=== PATIENT | female | born 1940 | race Caucasian/White ===

== ENCOUNTER → 2017-08-01 14:48 | Outpatient (CLI) | payer MEDICARE, SELFPAY ==
--- NOTE | 2017-08-01 14:51 | CT_ITS ---
STUDY: CT CHEST WITH CONTRAST REASON FOR EXAM: Female, 77 years old. Lung nodule. COPD. RADIATION DOSAGE (If Supplied By Facility): CTDIvol = ( 8.21 ) mGy, DLP = ( 748.46 ) mGycm TECHNIQUE: Transaxial imaging was performed following intravenous administration of 100 ml of Isovue 300 contrast material. Multiplanar coronal and sagittal images were reformatted. Individualized dose optimization techniques were used for this CT. COMPARISON: October 04, 2016 FINDINGS: There are emphysematous changes present. The lungs are hyperinflated There is biapical scarring present. There is stable scarring and/or atelectasis within the lower lobes. There are calcifications of the coronary arteries. Normal mediastinum. No pathologically enlarged lymph nodes. There are peripheral calcifications of the aortic arch and descending thoracic aorta. There are trace secretions within the trachea. There are multi-level degenerative changes of the thoracic spine. There is a small hiatal hernia. CT/Chest WITH Contrast IMPRESSION: Emphysema. Atherosclerosis. Bilateral scarring and/or atelectasis. Electronically Signed: Sayra Palacio MD at 17:23 EDT Tel , Service support ,
--- NOTE | 2017-08-01 14:51 | CT_ITS ---
STUDY: CT ABDOMEN AND PELVIS WITH CONTRAST REASON FOR EXAM: Female, 77 years old. Hematuria RADIATION DOSAGE (If Supplied By Facility): CTDIvol = ( 8.21 ) mGy, DLP = ( 748.46 ) mGycm TECHNIQUE: Transaxial images were obtained from the dome of the diaphragm to the symphysis pubis without oral contrast. 100 ml of Isovue 300 contrast was administered. Sagittal and coronal images were reconstructed. Individualized dose optimization techniques were used for this CT. COMPARISON: None. FINDINGS: There are emphysematous changes at the lung bases. There is a linear calcification within the left lower lobe which may be secondary to scarring and/or an prior infectious process. The visualized portions of the heart are within normal limits. Normal liver. Normal gallbladder and extrahepatic biliary system. Normal spleen. Normal pancreas. Normal bilateral adrenal glands. Normal right kidney. Normal left kidney. There is a small hiatal hernia. The proximal duodenum is prominent. There is no evidence of an obstruction. There are diverticula throughout the sigmoid colon. There is non-visualization of the appendix. There is diffuse atherosclerotic calcification of the abdominal aorta, without a demonstrated aneurysm. Normal inferior vena cava. Normal retroperitoneum. Normal urinary bladder. Normal abdominal wall. There are diffuse degenerative changes of the visualized lumbar spine. There is a levoscoliosis of the lumbar spine. CT/Abdomen/Pelvis WITH Contrast IMPRESSION: No specific CT findings to explain hematuria. Small hiatal hernia. Atherosclerosis. Colonic diverticulosis without evidence of diverticulitis. Prominent proximal duodenum, this may be chronic. Degenerative changes. Emphysema. Electronically Signed: Sayra Palacio MD at 16:41 EDT Tel , Service support ,
[2017-08-01 15:51] LABS: CREATININE FINGERSTICK 0.9 mg/dL (0.55-1.02); EGFR FINGERSTICK > 60.0000 mL/min (>60)
== END ==
PROVIDERS: Family Provider Internal Medicine; PCP Internal Medicine; Visit Provider Internal Medicine
DX: R31.0 Gross hematuria (principal); R91.1 Solitary pulmonary nodule
CPT/HCPCS: 71260; 74177; Q9967

== ENCOUNTER → 2018-07-29 09:01 | Outpatient (CLI) | payer MEDICARE, MEDICAID, SELFPAY | PROVIDERS: Family Provider Nurse Practitioner; PCP Nurse Practitioner; Referring Provider Nurse Practitioner; Visit Provider Nurse Practitioner | DX: R00.1 Bradycardia, unspecified (principal) | CPT/HCPCS: 93225; 93226 ==

== ENCOUNTER → 2018-08-08 10:12 | Outpatient (CLI) | payer MEDICARE, MEDICAID, SELFPAY ==
[2018-08-01 11:47] VITALS: BMI 17.5
--- NOTE | 2018-08-08 10:19 | MRI_ITS ---
STUDY: MRA OF THE HEAD WITHOUT CONTRAST REASON FOR EXAM: Female, 78 years old. Vertigo TECHNIQUE: 3-D vbep-db-pfepec (TOF) imaging was performed with MIPs. The study was performed unenhanced. COMPARISON: None. FINDINGS: Normal bilateral petrous carotid arteries. Normal right cavernous carotid artery with a normal supraclinoid bifurcation. Normal left cavernous carotid artery with a normal supraclinoid bifurcation. Normal right A1 segments of the anterior cerebral artery. Normal left A1 segments of the anterior cerebral artery. Normal intact anterior communicating artery (ACOM). Normal bilateral A2 segments of the anterior cerebral arteries. Normal right M1 and M2 segments of the middle cerebral arteries, with a normal M1 bifurcation. Normal left M1 and M2 segments of the middle cerebral arteries, with a normal M1 bifurcation. Normal right posterior communicating artery (PCOM). Normal left posterior communicating artery (PCOM). Normal bilateral vertebral arteries. Normal basilar artery with a normal basilar bifurcation. The visualized bilateral superior cerebellar (SCA) arteries are normal. Normal right P1 segment. The left P1 segment is hypoplastic but patent. Normal bilateral P2 and visualized P3 segments of the posterior cerebral arteries. There is no demonstrated aneurysm of the [place] of [place]. There is no major vessel occlusion or hemodynamically significant stenosis. There is no demonstrated abnormality of the visualized brain. MRI/MRA Head ONLY without Contrast IMPRESSION: Normal MRA of the head Electronically Signed: Man Jefferson, at 15:16 EDT Tel , Service support ,
--- NOTE | 2018-08-08 10:19 | MRI_ITS ---
STUDY: MRI BRAIN WITH AND WITHOUT CONTRAST REASON FOR EXAM: Female, 78 years old. Vertigo TECHNIQUE: Standardized multiplanar fat and water weighted pulse sequences were obtained. 9 IV Dotarem was administered for the contrast portion of the examination. COMPARISON: None. FINDINGS: Normal size of the ventricles and extra-axial spaces for the patient's age. Normal white matter tracts of the supratentorial brain. Normal bilateral basal ganglia. Normal thalami. There is no extra-axial fluid accumulation. Normal flow voids within the major intracranial circulation suggesting patency by spin echo criteria. Normal venous enhancement. There is no enhancing intra-axial or extra-axial abnormality. Normal sella turcica, pituitary gland, infundibular stalk, optic chiasm and hypothalamus. Normal tectal plate and pineal gland. Normal midbrain, ariana and medulla. Normal cerebellum. Normal basal cisterns. Normal bilateral temporal bones. Normal bilateral internal auditory canals. No demonstrated orbital abnormality, within the constraints of a routine brain study. There is acute on chronic right maxillary sinusitis with near complete opacification of the right maxillary sinus. Normal calvarium and skull base. Normal visualized soft tissue structures. Normal visualized upper cervical spine. MRI/Brain W/WO Contrast IMPRESSION: Normal unenhanced and enhanced MRI of the brain. Electronically Signed: Man Jefferson, at 12:37 EDT Tel , Service support ,
== END ==
PROVIDERS: Family Provider Nurse Practitioner; PCP Nurse Practitioner; Referring Provider Nurse Practitioner; Visit Provider Nurse Practitioner
DX: R42 Dizziness and giddiness (principal)
CPT/HCPCS: 70544; 70553; A9575

== ENCOUNTER → 2018-09-17 | Outpatient (CLI) | payer MEDICARE, MEDICAID, SELFPAY ==
[2018-08-01 11:47] VITALS: BMI 17.5
--- NOTE | 2018-09-17 06:53 | ECHOD_ITS ---
Reason For Study: Arrhythmia Procedure This was a 2D Doppler, Color Flow transthoracic echocardiogram. The exam was of adequate technical quality. Exam performed in department. Left Ventricle Normal LV size. Left ventricular systolic function is normal. The estimated ejection fraction is 60 %. No evidence for diastolic dysfunction. No regional wall motion abnormalities noted. Right Ventricle Normal RV size. Normal systolic function. Atria Normal left atrium. Normal right atrium. No doppler evidence for ASD. Bubble contrast study negative for right to left interatrial shunt. Mitral Valve There is no mitral annular calcification. Anterior leaflet diffuse mitral valve thickening. Mitral valve doming/Hockey Sticking. Mild (1+) eccentric mitral valve insufficiency. Tricuspid Valve Normal tricuspid valve. Mild to moderate (1-2+) tricuspid valve insufficiency. Right ventricular systolic pressure estimated to be 31 mmHg. Aortic Valve Trisinus/trileaflet aortic valve. Mild diffuse aortic valve thickening. Mild focal aortic valve calcification. Aortic sclerosis, no stenosis. Trivial aortic valve insufficiency. Pulmonic Valve The pulmonic valve is not well visualized. Mild (1+) pulmonic valve insufficiency. Great Vessels Normal sized aortic root. Pericardium/Pleural No pericardial effusion. Medication Performed a rapid injection of agitated mix of 9 cc saline and 1cc air to assess for atrial septal defect. MMode/2D Measurements & Calculations LVIDd: 4.1 cm IVSd: 0.75 cm Ao root diam: 2.8 cm LVIDs: 2.7 cm LVPWd: 0.83 cm RVDd: 2.8 cm FS: 35.2 % LAV(MOD-bp): 30.7 ml LVAd ap4: 19.6 cm2 SV(MOD-sp4): 29.5 ml LAV(MOD-bp) Indexed: 21.2 ml/m2 EDV(MOD-sp4): 49.4 ml LAV(MOD-sp2): 34.5 ml EDV(sp4-el): 50.2 ml LAV(MOD-sp4): 23.9 ml LVAs ap4: 11.4 cm2 ESV(MOD-sp4): 19.9 ml ESV(sp4-el): 18.4 ml EF(MOD-sp4): 59.7 % EF(sp4-el): 63.4 % SV(sp4-el): 31.8 ml LA A4 area: 11.1 cm2 LA dimension(2D): 2.3 cm RA A4 area: 10.8 cm2 Doppler Measurements & Calculations MV E max tavo: 52.5 cm/sec Lat Peak E' Tavo: 5.7 cm/sec Med Peak E' Tavo: 5.4 cm/sec MV A max tavo: 68.4 cm/sec E/E' lat: 9.2 E/E' med: 9.8 MV E/A: 0.77 Ao V2 max: 103.4 cm/sec LV V1 max: 80.0 cm/sec PA V2 max: 80.9 cm/sec Ao max P.3 mmHg LV V1 max P.6 mmHg TR max tavo: 262.8 cm/sec TR max P.8 mmHg Interpretation Summary Left ventricular systolic function is normal. The estimated ejection fraction is 60 %. Anterior leaflet diffuse mitral valve thickening. Mitral valve doming/Hockey Sticking Mild (1+) eccentric mitral valve insufficiency. Mild to moderate (1-2+) tricuspid valve insufficiency. Aortic sclerosis, no stenosis. Trivial aortic valve insufficiency. Mild (1+) pulmonic valve insufficiency. Right ventricular systolic pressure estimated to be 31 mmHg. No evidence for diastolic dysfunction. Comment: Color-flow Doppler images obtained cannot exclude a PDA (patent ductus arteriosus). Ordering Physician: Gregory Stanton Referring Physician: Sahra Delacruz Performed By: Lisa Barrientos CELINA
--- NOTE | 2018-09-17 11:46 | STRESSREP ---
Stress Test Report Date: 09-17-18 Procedure: Exercise tolerance test/imaging study Indications: Abnormal ECG; shortness of breath/dyspnea; hyperlipidemia Consent: Per the patient Procedure: The patient exercised on a Wang protocol for 6 minutes and 30 seconds completing Stage II and 30 seconds of Stage III achieving a peak heart rate of 123 bpm (87 % predicted maximal heart rate) with a peak blood pressure 198/74 mmHg and a peak MET capacity of 7 METs. The baseline ECG demonstrated normal sinus rhythm; right bundle branch block pattern. The peak exercise ECG demonstrated somatic/motion artifact with continued right bundle branch block pattern. There were occasional PACs pretest, during exercise, and recovery and occasional PVCs during exercise and recovery. The functional capacity was considered average. There was no complaint of chest discomfort during exercise or recovery. The examination was discontinued secondary to dyspnea. Impression: 1. Technically adequate (percent predicted maximal heart rate greater than 85%) exercise tolerance test 2. Peak exercise ECG with somatic/motion artifact with continued right bundle branch block pattern 3. There were occasional PACs pretest, during exercise, and recovery and occasional PVCs during exercise and recovery 4. Nuclear images pending Myocardial perfusion imaging study: Technique: The patient was injected with 11.1 mCi of technetium 99m Cardiolite and subsequently rest SPECT Cardiolite nuclear imaging was obtained in the horizontal long, vertical long, and short axis views. The patient exercised on a Wang protocol for 6 minutes and 30 seconds completing Stage II and 30 seconds of Stage III achieving a peak heart rate of 123 bpm (87 % predicted maximal heart rate) with a peak blood pressure 198/74 mmHg and a peak MET capacity of 7 METs. The patient was injected with 30.9 mCi of technetium 99m Cardiolite and subsequently stress SPECT Cardiolite nuclear imaging was obtained in the horizontal long, vertical long, and short axis views. A gated Cardiolite study at peak stress was not obtained. Interpretation: Rest and stress SPECT Cardiolite nuclear imaging status post realignment, normalization, and attenuation correction, demonstrates the appearance of relative uniform tracer uptake and myocardial perfusion appearing within normal limits. The gated Cardiolite study at peak stress was not obtained. Impression: 1. Rest and stress SPECT Cardiolite nuclear imaging demonstrate relative uniform tracer uptake and myocardial perfusion appearing within normal limits. 2. A gated Cardiolite study at peak stress was not obtained. This note was generated with [employer] software. It may contain incorrect words, spelling, and punctuation that were not noted in checking the note before signing.
== END | disposition home or self-care (01) ==
LOC: CVS 06:52
PROVIDERS: Family Provider Nurse Practitioner; PCP Nurse Practitioner; Referring Provider Internal Medicine Cardiovascular Disease; Visit Provider Internal Medicine Cardiovascular Disease
DX: I49.3 Ventricular premature depolarization (principal); I49.1 Atrial premature depolarization; R06.02 Shortness of breath
CPT/HCPCS: 78452; 93017; 93306; A9500; A4216

== ENCOUNTER → 2019-01-02 10:51 | Outpatient (CLI) | payer MEDICARE, MEDICAID, SELFPAY ==
[2018-12-30 10:39] VITALS: BMI 17.2
[2019-01-02 11:00] VITALS: PULSE 49; PULSE 52; PULSE 54; PULSE 58; PULSE 60; PULSE 63; PULSE 71; O2SAT 93; O2SAT 95; O2SAT 96
--- NOTE | 2019-01-02 14:17 | PCM.PSN.6M ---
PSN 6 Minute Walk Test - 6 Minute Walk Test 6 Minute Walk Test: 6 Minute Walk Test PSN:6-Minute Walk Test Start: 01/02/19 11:10 Freq: Status: Active Protocol: RESP.6MINW Document 01/02/19 11:00 HG (Rec: 01/02/19 11:12 HG [id number]) 6 Minute Walk Test Date Performed 01/02/19 Time Performed 11:00 Height 5 ft 3 in Weight: 43.998 kg Weight in Pounds 97.[address]: Genaro Ortega Assistive device used: None 1st minute Oxygen Delivery Method Room Air Pulse Ox (%) 93 Pulse Rate (60-100 beats/min) 49 L Dyspnea Sabino Scale (0-10) 2 Exertion Sabino Scale (6-20) 8 2nd minute Oxygen Delivery Method Room Air Pulse Ox (%) 96 Pulse Rate (60-100 beats/min) 52 L 3rd minute Oxygen Delivery Method Room Air Pulse Ox (%) 93 Pulse Rate (60-100 beats/min) 54 L 4th minute Oxygen Delivery Method Room Air Pulse Ox (%) 96 Pulse Rate (60-100 beats/min) 60 5th minute Oxygen Delivery Method Room Air Pulse Ox (%) 96 Pulse Rate (60-100 beats/min) 63 6th minute Oxygen Delivery Method Room Air Pulse Ox (%) 96 Pulse Rate (60-100 beats/min) 71 Post-test Oxygen Delivery Method Room Air Pulse Ox (%) 95 Pulse Rate (60-100 beats/min) 58 L Dyspnea Sabino Scale (0-10) 3 Exertion Sabino Scale (6-20) 11 Full Laps Walked 18 Partial Lap, Number of Tiles Walked 0 Total Distance Walked (ft) 1062 - Interpretation Interpretation: Patient was able to ambulate 1062 feet over the course of 6 minutes on room air with no assistive devices or breaks. No significant desaturation or tachycardia was noted. - Recommendations Recommendations: These findings are consistent with a normal walking oximetry.
== END ==
PROVIDERS: Family Provider Nurse Practitioner; PCP Nurse Practitioner; Referring Provider Internal Medicine Critical Care Medicine; Visit Provider Internal Medicine Critical Care Medicine
DX: J44.9 Chronic obstructive pulmonary disease, unspecified (principal); F17.210 Nicotine dependence, cigarettes, uncomplicated
CPT/HCPCS: 94618

== ENCOUNTER → 2019-01-09 12:47 | Outpatient (CLI) | payer MEDICARE, MEDICAID, SELFPAY ==
[2018-12-30 10:39] VITALS: BMI 17.2
--- NOTE | 2019-01-10 09:48 | PFT ---
INTRODUCTION: The patient is a 78-year-old female that presents for pulmonary function studies secondary to a diagnosis of COPD. Respiratory therapy reports good patient effort. Bronchodilators were used during testing. INTERPRETATION: Forced expiration spirometry demonstrates the presence of a moderate large airways obstructive ventilatory defect. There was no significant response to aerosolized bronchodilators. Spirograms are of fair quality and do not plateau indicating slow emptying of the lungs. Body plethysmography was performed and reveals an elevated RV to 141% of predicted, indicative of underlying air trapping. Diffusing capacity by single breath CO is mildly reduced at 65% of predicted. IMPRESSION: Irreversible moderate large airways obstructive ventilatory defect with associated air trapping and mild reduction in diffusing capacity.
== END ==
PROVIDERS: Family Provider Nurse Practitioner; PCP Nurse Practitioner; Referring Provider Internal Medicine Critical Care Medicine; Visit Provider Internal Medicine Critical Care Medicine
DX: J44.9 Chronic obstructive pulmonary disease, unspecified (principal); F17.210 Nicotine dependence, cigarettes, uncomplicated
CPT/HCPCS: 94060; 94726; 94729

== ENCOUNTER → 2020-08-17 12:53 | Outpatient (CLI) | payer MEDICARE, MEDICAID, SELFPAY ==
[2020-08-03 07:24] VITALS: BMI 17.7
[2020-08-17 13:00] VITALS: PULSE 101; PULSE 104; PULSE 83; PULSE 92; PULSE 98; PULSE 99; O2SAT 93; O2SAT 94; O2SAT 95
--- NOTE | 2020-08-18 10:15 | PCM.PSN.6M ---
PSN 6 Minute Walk Test 6 Minute Walk Test 6 Minute Walk Test: 6 Minute Walk Test PSN:6-Minute Walk Test Start: 08/17/20 13:10 Freq: Status: Active Protocol: RESP.6MINW Document 08/17/20 13:00 (Rec: 08/17/20 13:14 [id number]) 6 Minute Walk Test Date Performed 08/17/20 Time Performed 13:00 Height 5 ft 3 in Weight: 100 lb Weight in Pounds 100.[address]: Genaro Ortega FIO2 (% Oxygen) 21 Assistive device used: None Pre-test Oxygen Delivery Method Room Air Pulse Ox (%) 95 Pulse Rate (60-100 beats/min) 83 Dyspnea Sabino Scale (0-10) 0 Exertion Sabino Scale (6-20) 6 1st minute Oxygen Delivery Method Room Air Pulse Ox (%) 94 Pulse Rate (60-100 beats/min) 98 2nd minute Oxygen Delivery Method Room Air Pulse Ox (%) 95 Pulse Rate (60-100 beats/min) 101 H 3rd minute Oxygen Delivery Method Room Air Pulse Ox (%) 94 Pulse Rate (60-100 beats/min) 99 4th minute Oxygen Delivery Method Room Air Pulse Ox (%) 93 Pulse Rate (60-100 beats/min) 101 H 5th minute Oxygen Delivery Method Room Air Pulse Ox (%) 93 Pulse Rate (60-100 beats/min) 104 H 6th minute Oxygen Delivery Method Room Air Pulse Ox (%) 94 Pulse Rate (60-100 beats/min) 104 H Post-test Oxygen Delivery Method Room Air Pulse Ox (%) 95 Pulse Rate (60-100 beats/min) 92 Dyspnea Sabino Scale (0-10) 3 Exertion Sabino Scale (6-20) 11 Full Laps Walked 19 Partial Lap, Number of Tiles Walked 0 Total Distance Walked (ft) 1121 Interpretation Interpretation: The patient ambulated 1121 feet over the course of 6 minutes beginning on room air without assistive devices or breaks. Pretesting oxygen saturation was noted to be 95% on room air. With ambulation, the elvin oxygen saturation was 93%. There was no significant exertional oxygen desaturation. Recommendations Recommendations: There is no indication for the use of supplemental oxygen at this time.
== END ==
PROVIDERS: PCP Nurse Practitioner; Referring Provider Internal Medicine Critical Care Medicine; Visit Provider Internal Medicine Critical Care Medicine
DX: J44.9 Chronic obstructive pulmonary disease, unspecified (principal); F17.210 Nicotine dependence, cigarettes, uncomplicated
CPT/HCPCS: 94618

== ENCOUNTER 2022-08-29 10:14 | Inpatient (IN) | payer MEDICARE, MEDICAID, SELFPAY ==
[2022-08-29] VITALS (23 sets, daily range): BP systolic 80–146; BP diastolic 47–124; PULSE 80–128; RESP 12–32; TEMP 35.7–36.8; O2SAT 90–100; BMI 17.4; BMI 17.9
--- NOTE | 2022-08-29 10:28 | RAD_ITS ---
STUDY: X-RAY CHEST REASON FOR EXAM: Female, 82 years old. Dyspnea TECHNIQUE: Single AP portable view of the chest. COMPARISON: None. FINDINGS: EKG electrodes are seen. There is hyperinflation of the lungs consistent with chronic obstructive lung disease (COPD). Mild increased markings at the lung apices suggestive of scarring. Blunting of both costophrenic angles. Normal size heart. Normal mediastinum and cristina. Normal visualized pulmonary arteries. There is atherosclerotic calcification of the aortic arch with tortuosity. There are diffuse degenerative changes of the visualized thoracic spine. Normal visualized ribs, clavicles, and shoulders. There is no demonstrated abnormality of the visualized soft tissue structures of the upper abdomen. RAD/Chest 1 View (Portable) IMPRESSION: Hyperinflation. COPD. Findings suggestive of scarring at the lung apices. Electronically Signed: Yoni Gu MD at 12:16 EDT ,
--- NOTE | 2022-08-29 10:29 | ED.VIS.DYS ---
HPI History of Present Illness Chief Complaint: Shortness of Breath Detail of Chief Complaint: Shortness of breath Informant: patient and family Narrative Narrative: Patient presents the emergency department complaint of shortness of breath for about 4 days. Patient felt significantly more short of breath today. She has been coughing. Patient bringing up some yellow phlegm. She does have history of COPD but not on home oxygen. Patient continues to smoke. She denies any chest pain. She denies recent travel or surgery. Patient denies any fevers. Patient tells me that she normally has low blood pressure but cannot tell me how low her pressure normally runs. She denies feeling lightheaded or dizzy. She had no vomiting or diarrhea. [facility] Medical History (Updated 08/29/22 @ 12:[address] Suki Boston DO) Bradycardia COPD (chronic obstructive pulmonary disease) Depression Essential hypertension Lung nodule Pure hypercholesterolemia Tobacco abuse Trigeminal neuralgia Vertigo Home Medications coenzyme Q10 200 mg capsule 200 mg PO DAILY 07/31/18 [History Last Taken Unknown] aspirin 325 mg tablet 325 mg PO DAILY 08/01/18 [History Last Taken Unknown] cholecalciferol (vitamin D3) 50 mcg (2,000 unit) capsule 2,000 unit PO DAILY 08/01/18 [History Last Taken Unknown] tiotropium 2.5 mcg-olodaterol 2.5 mcg/actuation mist for inhalation (Stiolto Respimat) 2 inh inhalation DAILY #4 grams 03/16/22 [Rx Last Taken Unknown] Allergy/AdvReac Type Severity Reaction Status Date / Time No Known Allergies Allergy Unverified 08/29/22 10:20 Family History Mother Heart disease Father Heart disease Diabetes Grandfather CVA (cerebral vascular accident) Brother Heart disease Surgical History History of hysterectomy History of lung biopsy Social History Smoking Status: Current some day smoker tobacco type: cigarettes alcohol intake: never substance use type: does not use caffeine: Yes Type: carbonated beverages Number of servings: 2 ROS ROS ED Review of Systems ROS Unobtainable: other Constitutional Constitutional ED: Reports lethargy; Denies chills, fever(s), sweats or weight loss Eyes Eyes: Denies blurry vision, change in vision or diplopia ENT ENT ED: Denies rhinorrhea or sore throat Cardiovascular Cardiovascular: Denies chest pain, orthopnea or racing heartbeat Respiratory/Chest Respiratory/Chest: Reports cough, dyspnea, dyspnea on exertion and sputum; Denies orthopnea Gastrointestinal Gastrointestinal: Denies abdominal pain, diarrhea, nausea or vomiting Genitourinary Genitourinary ED: Denies dysuria, hematuria or urinary frequency Musculoskeletal Musculoskeletal: Denies arthralgias, back pain, myalgias or neck pain Integumentary Denies abscess, Abrasions or rash Neurologic Neurologic: Denies headache(s) or weakness Psychiatric Psychiatric: Denies anxiety, depression or suicidal thoughts Endocrine Endocrinology: Denies polydipsia, polyphagia or polyuria Hematologic/Lymphatic Hematologic/Lymphatic: Denies easy bleeding, easy bruising or lymphadenopathy Allergic/Immunologic Allergic/Immunologic ED: Denies mouth swelling, tongue swelling or urticaria EXAM Physical Exam Const Vital Signs: 08/29/22 10:18 08/29/22 10:21 08/29/22 11:19 Temperature 98.1 F Temperature Source Temporal Pulse Rate 90 Respiratory Rate 20 H Blood Pressure 88/74 L Blood Pressure Mean 78 Pulse Ox 90 97 93 Oxygen Delivery Method Room Air Nasal Cannula Bi-pap Oxygen Flow Rate (L/min) 2 Fraction of Inspired Oxygen (FIO2) 100 08/29/22 11:15 Temperature Temperature Source Pulse Rate 104 H Respiratory Rate 28 H Blood Pressure 146/124 H Blood Pressure Mean 131 Pulse Ox 99 Oxygen Delivery Method Bi-pap Oxygen Flow Rate (L/min) Fraction of Inspired Oxygen (FIO2) Positive well nourished and well developed General Appearance ED: well developed and NAD HEENT Reports TM's clear and moist mucous membranes normocephalic and atraumatic; Negative for trauma or tenderness Tympanic Membrane ED: Yes TM's clear Eyes PERRL and EOMs intact bilaterally General Eye ED: Negative for pale conjunctiva or scleral icterus Neck no lymphadenopathy, supple and no JVD General: Negative for tenderness Chest Wall inspection of chest normal and palpation of chest normal Chest: Negative for tenderness Resp Resp Narrative: Patient with some mild tachypnea. Patient has diminished breath sounds bilaterally with very faint expiratory wheezes noted. No accessory muscle use or retractions. Effort and Inspection: Negative for respiratory distress or pain with movement Auscultation: Negative for rhonchi, wheezes or diminished lung sounds Cardio regular rate, regular rhythm, S1 normal heart sound, S2 normal heart sound and no murmurs Peripheral Pulses: pulses 2+ throughout GI normal to inspection, nondistended, normoactive bowel sounds, soft to palpation, non-tender, non-distended and no masses Back/Spine no CVA tenderness and no thoracic nor lumbar tenderness Extremity normal to inspection General Extremety ED: Negative for edema General Extremity: Negative for edema Neuro oriented x3, CN's II-XII intact bilaterally, no sensory deficits noted and gait normal Sensorium / Orientation: awake, alert, oriented to person, oriented to place and oriented to time Motor Exam: strength 5/5 throughout and strength abnormal Psych mental status grossly normal Skin no rashes or lesions noted and no wounds MDM MDM MDM Narrative Medical decision making narrative: Patient presents with increased dyspnea x4 days and cough. In the differential would be pneumonia versus COPD exacerbation versus acute coronary syndrome or PE. Patient had a IV line established and she was placed on a quality assurance monitor chassis. EKG obtained showed a sinus rhythm with a rate of 87 bpm with right bundle branch block and no significant acute ST segment changes noted. Initial systolic blood pressure in the 80s therefore she was ordered a liter normal same fluid bolus. She was ordered DuoNeb aerosol and was started on Solu-Medrol 125 mg IV. Patient's breathing deteriorated and symptomatically she felt like she could not get any air. She was started on BiPAP. Patient had good response to BiPAP and is much more comfortable and is asking to have it off. Patient lab work-up unremarkable. D-dimer normal when corrected for age. Patient's lactate was normal. Patient's troponin was normal. EKG showed a sinus rhythm with a rate of 86 bpm with right bundle branch block. I suspect symptoms likely COPD exacerbation. Patient did receive a liter fluid bolus and her blood pressure in the 90s systolic and at times in the low 100s systolic. Patient tells me she chronically runs low but cannot really tell me how low. We will monitor her blood pressure as she is relatively asymptomatic with this. I do not feel patient is septic. Lab Data Attestation: I reviewed the patient's lab results. Labs: Laboratory Results - last 24 hr 08/29/22 08/29/22 08/29/22 10:55 10:55 10:55 WBC 6.0 RBC 4.26 Hgb 12.9 Hct 39.0 MCV 91.5 MCH 30.3 MCHC 33.1 RDW Std Deviation 43.5 RDW Coeff of Wayne 13.0 Plt Count 241 MPV 9.6 Immature Gran % (Auto) 0.300 Neut % (Auto) 73.2 H Lymph % (Auto) 17.1 L Cooper % (Auto) 8.6 Eos % (Auto) 0.5 Baso % (Auto) 0.3 Absolute Neuts (auto) 4.4 Absolute Lymphs (auto) 1.03 Nucleated RBC % 0 D-Dimer Quant (PE/DVT) 0.72 H* Sodium 140 Potassium 3.3 L Chloride 104 Carbon Dioxide 28.0 Anion Gap 8 BUN 7 Creatinine 0.65 Estim Creat Clear Calc 30.08 Est GFR (MDRD) Af Amer 112 Est GFR (MDRD) Non-Af 93 BUN/Creatinine Ratio 10.8 Glucose 106 Lactic Acid Calcium 8.9 Troponin I High Sens 16 08/29/22 10:55 WBC RBC Hgb Hct MCV MCH MCHC RDW Std Deviation RDW Coeff of Wayne Plt Count MPV Immature Gran % (Auto) Neut % (Auto) Lymph % (Auto) Cooper % (Auto) Eos % (Auto) Baso % (Auto) Absolute Neuts (auto) Absolute Lymphs (auto) Nucleated RBC % D-Dimer Quant (PE/DVT) Sodium Potassium Chloride Carbon Dioxide Anion Gap BUN Creatinine Estim Creat Clear Calc Est GFR (MDRD) Af Amer Est GFR (MDRD) Non-Af BUN/Creatinine Ratio Glucose Lactic Acid 0.8 Calcium Troponin I High Sens Radiography Diagnostic Testin view chest x-ray obtained interpreted by myself as hyperinflation without evidence of infiltrate or pneumothorax. Official report from radiology pending. EKG Initial EKG: Attestation: I personally reviewed and interpreted this EKG as follows: Comments: Sinus rhythm with a ventricular rate of 86 bpm with right atrial enlargement and right bundle branch block Discharge Plan Triage Chief Complaint: Shortness of Breath ED Provider: Suki Boston Dx/Rx/DC Orders Clinical Impression: Respiratory failure, Acute exacerbation of chronic obstructive pulmonary disease, Acute hypotension Prescriptions: No Action cholecalciferol (vitamin D3) 2,000 unit capsule 2,000 unit PO DAILY aspirin 325 mg tablet 325 mg PO DAILY coenzyme Q10 200 mg capsule 200 mg PO DAILY Stiolto Respimat 2.5-2.5 mcg/actuation mist 2 inh inhalation DAILY Qty: 4 11RF Primary Care Provider: Cinda Moura Referrals: Sahra Delacruz HAND COOPER HELPER, HAND COOPER HELPER-C [Non-Staff] - Disposition Disposition: Acute Care [facility]
[2022-08-29] MEDS: Ipratropium/Albuterol Sulfate 3 ML AMPUL.NEB INHALATION ×2 (10:52→19:07)
[2022-08-29] MEDS: Albuterol 2.5 MG/3 ML VIAL.NEB. INHALATION ×3 (10:52)
[2022-08-29 11:08] LABS: Absolute Lymphocyte Count 1.03 X10^3/uL (0.83-4.51); Absolute Neutrophil Count 4.4 X10^3/uL (2.0-7.7); Basophil# 0.02 X10^3/uL; Basophil% 0.3 % (0-1); Eosinophil# 0.03 X10^3/uL; Eosinophils% 0.5 % (0-5); Hemoglobin 12.9 g/dL (12.0-15.0); Lymphocyte # 1.03 X10^3/ul (0.83-4.51); Lymphocyte % 17.1 % (19-41); Mean Corp Hgb Conc 33.1 g/dL (32-36); Mean Corpuscular Hgb 30.3 pg (27.0-32.0); Mean Corpuscular Volume 91.5 fL (81-99); Mean Platelet Vol. 9.6 fl (6.2-12.0); Monocyte# 0.52 X10^3/uL; Monocyte% 8.6 % (0-10); NRBC Flagged by Analyzer 0 % (0-5); Neutrophil # 4.41 X10^3/uL (2.7-7.7); Neutrophil % 73.2 % (47-70); Platelet Count 241 K/mm3 (150-450); RBC Distribution Width SD 43.5 fl (35.1-43.9); Red Blood Count 4.26 M/mm3 (4.2-5.4)
[2022-08-29] MEDS: 0.9% Normal Saline 1,000 ML 999 ML IV (11:12)
[2022-08-29] MEDS: MethylPREDNISolone 125 MG/2 ML Vial IV (11:12)
[2022-08-29 11:19] LABS: D-Dimer Quantitative (DVT/PE) 0.72 FEU/ug/m (0.27-0.49)
[2022-08-29 11:27] LABS: Anion Gap 8 (5-15); BUN 7 mg/dL (7-18); BUN/Creat Ratio 10.8 RATIO (10-20); Calcium,Total 8.9 mg/dL (8.5-10.1); Chloride 104 mmol/L (98-107); Creatinine, Serum 0.65 mg/dL (0.55-1.02); EST Glomerular Filtration Rate 93 mL/min (>60); Est Glom Filt Rate - Afr Amer 112 mL/min (>60); Estimated Creatinine Clearance 30.08 ml/min; Glucose 106 mg/dL (74-106); Potassium 3.3 mmol/L (3.5-5.1); Sodium Level 140 mmol/L (136-145); Troponin-I HS 16 pg/mL (3.0-54.0)
[2022-08-29 11:30] LABS: Lactic Acid 0.8 mmol/L (0.4-1.9)
--- NOTE | 2022-08-29 12:53 | HP.PCM.HOS_ITS ---
HPI - General General Date of Admission: 08/29/22 Date of Service: 08/29/22 Chief Complaint: Dyspnea, initially respiratory distress HPI Narrative The patient is an 82 y/o F w/ PMHx: COPD, HLD, Tobacco use, Chronic bradycadria, Known Lung nodule, Depression and Anxiety, Chronic Protein-Calorie malnutrition who presents to the [facility] ED on 08/29/22 with history of progressively worsening dyspnea over the last 4 days although worse upon ED presentation with productive cough of yellow phlegm with ongoing continued tobacco use but no chronic s upplementation with no recent fevers or chills prompting eventual ED evaluation. Patient does admit to chronic low blood pressure. She denies any recent other URI type symptoms nor any lightheadedness, dizziness, orthopnea or increased swelling of the extremities or weight gain. She does follow with pulmonary medicine and last saw Laura Leonard on 10/25/22. For his physician she has primarily seen Dr. Ortega. Family present does report that there is a lot of pollen around her home. Work-up in the ED included T98.1, heart rate 90, BP initially 88/74, respiratory rate 20, 90% on room air however desaturated and was eventually placed on 2 L nasal cannula noted to be 97% however had increased work of breathing and accessory muscle usage and was then transition to BiPAP, most recent current vital signs include heart rate 104, BP 146/124, respiratory rate 28, 99% on 100% BiPAP, CBC with WC 6.0, hemoglobin 12.9, platelet 241 without marked shift, D-dimer 0.72 which is normal once age-adjusted, BMP not marked appearing aside potassium 3.3, lactic acid 0.8, troponin 16, blood culture x2 pending per ED, rapid SARS COVID and influenza antigens negative, EKG with sinus rhythm with right bundle branch block, chest x-ray with hyperinflation with no acute cardiopulmonary findings. In the ED patient ministered Solu-Medrol 125 mg IV x1 as well as DuoNeb therapy and 1 L normal saline bolus. In the ED patient notably improved with BIPAP administration but still does appear to have increased work of breathing and accessory muscle usage. ABG requested and discussed with the ED staff to be obtained now. [facility] Medical History Bradycardia COPD (chronic obstructive pulmonary disease) Depression Essential hypertension Lung nodule Pure hypercholesterolemia Tobacco abuse Trigeminal neuralgia Vertigo Home Medications coenzyme Q10 200 mg capsule 200 mg PO DAILY 07/31/18 [History Last Taken 1 Week Ago ~08/22/22] aspirin 325 mg tablet 325 mg PO DAILY 08/01/18 [History Last Taken 08/28/22] cholecalciferol (vitamin D3) 50 mcg (2,000 unit) capsule 2,000 unit PO DAILY 08/01/18 [History Last Taken 1 Week Ago ~08/22/22] tiotropium 2.5 mcg-olodaterol 2.5 mcg/actuation mist for inhalation (Stiolto Respimat) 2 inh inhalation DAILY #4 grams 03/16/22 [Rx Last Taken 08/28/22] Allergy/AdvReac Type Severity Reaction Status Date / Time No Known Allergies Allergy Unverified 08/29/22 10:20 Family History Mother Heart disease Father Heart disease Diabetes Grandfather CVA (cerebral vascular accident) Brother Heart disease Surgical History History of hysterectomy History of lung biopsy Social History (Updated 08/29/22 @ 12:[address] Jannet Tubbs MD) household members: none Smoking Status: Current some day smoker tobacco type: cigarettes Smoking packs per day: 0.5 Smoking cigarettes per day: 10.0 alcohol intake: never substance use type: does not use caffeine: Yes Type: carbonated beverages Number of servings: 2 ROS ROS Narrative Admission Review of Systems: CONSTITUTIONAL: No weight loss, fever, chills, + weakness or fatigue. HEENT: Eyes: No visual loss, blurred vision, double vision or yellow sclerae. Ears, Nose, Throat: No hearing loss, sneezing, congestion, runny nose or sore throat. SKIN: No rash or itching, lesions, wounds. CARDIOVASCULAR: No chest pain, chest pressure or chest discomfort, palpitations, edema, orthopnea, syncopal events. RESPIRATORY: + shortness of breath, cough with increased sputum, wheezing. No hemoptysis. GASTROINTESTINAL: + anorexia. No nausea, vomiting or diarrhea, abdominal pain, melena, BRBPR. GENITOURINARY: No dysuria, frequency, urgency or retention. NEUROLOGICAL: No headache, dizziness, syncope, paralysis, ataxia, numbness or tingling in the extremities, focal weakness, change in bowel or bladder control, seizure. MUSCULOSKELETAL: + muscle, back pain, joint pain or stiffness. HEMATOLOGIC: + Easy bleeding or bruising. LYMPHATICS: No enlarged nodes. No history of splenectomy. PSYCHIATRIC: No history of depression or anxiety. ENDOCRINOLOGIC: No reports of sweating, cold or heat intolerance. No polyuria or polydipsia. ALLERGIES: No history of rhinitis. Vital Signs Vital Signs Vital Signs: 08/29/22 10:18 08/29/22 10:21 08/29/22 11:19 Temperature 98.1 F Temperature Source Temporal Pulse Rate 90 Respiratory Rate 20 H Blood Pressure 88/74 L Blood Pressure Mean 78 Pulse Ox 90 97 93 Oxygen Delivery Method Room Air Nasal Cannula Bi-pap Oxygen Flow Rate (L/min) 2 Fraction of Inspired Oxygen (FIO2) 100 08/29/22 11:15 Temperature Temperature Source Pulse Rate 104 H Respiratory Rate 28 H Blood Pressure 146/124 H Blood Pressure Mean 131 Pulse Ox 99 Oxygen Delivery Method Bi-pap Oxygen Flow Rate (L/min) Fraction of Inspired Oxygen (FIO2) Weight Weight: 98 lb 8.746 oz Body Mass Index (BMI) 17.4 Physical Exam Narrative Physical Examination: General: Awake, alert, oriented x 3 and cooperative, seated upright in the ED bed, fatigued, still having increased work of breathing accessory muscle usage but this is improved since initial ED presentation, BiPAP still in place. Skin: Normal color, normal turgor, no icterus, no cyanosis. HEENT: AT/NC, EOMI, PERRLA, dry MM, BiPAP in place, difficulty assessing carotid bruit given referred sound, no JVD elevation noted. Lungs: Significantly diffusely diminished, tight, poor air movement, increased work of breathing accessory muscle usage is evident with mild improvement of respiratory distress since initial ED presentation but ongoing, BiPAP in place, no appreciated rales or rhonchi nor any wheezing but again moving air very poorly. Heart: Tachycardic with regular rhythm; no gallop, rub audible. Abdomen: Soft, thin cachectic habitus, NTTP, ND, distant normal BS, no HSM. Extremities: No cyanosis, clubbing, or edema. Neurological: Patient awake, alert, oriented as noted, cognitive function intact; pupils equally reactive to light and accommodation, cranial nerves II- XII grossly normal, moving all 4 extremities, no focal deficits, strength severely globally decreased secondary to acute presentation and underlying co morbidities. Psychiatric: Affect appears fatigued, evidence of respiratory distress although improved since initial ED arrival, no acute evidence of depressive or anxiety feelings. Results Lab / Micro Data Result Diagrams: 08/29/22 10:55 08/29/22 10:55 Labs: Laboratory Results - last 24 hr 08/29/22 10:55: WBC 6.0, RBC 4.26, Hgb 12.9, Hct 39.0, MCV 91.5, MCH 30.3, MCHC 33.1, RDW Std Deviation 43.5, RDW Coeff of Wayne 13.0, Plt Count 241, MPV 9.6, Immature Gran % (Auto) 0.300, Neut % (Auto) 73.2 H, Lymph % (Auto) 17.1 L, [place] % (Auto) 8.6, Eos % (Auto) 0.5, Baso % (Auto) 0.3, Absolute Neuts (auto) 4.4, Absolute Lymphs (auto) 1.03, Nucleated RBC % 0 08/29/22 10:55: D-Dimer Quant (PE/DVT) 0.72 H* 08/29/22 10:55: Sodium 140, Potassium 3.3 L, Chloride 104, Carbon Dioxide 28.0, Anion Gap 8, BUN 7, Creatinine 0.65, Estim Creat Clear Calc 30.08, Est GFR (MDRD) Af Amer 112, Est GFR (MDRD) Non-Af 93, BUN/Creatinine Ratio 10.8, Glucose 106, Calcium 8.9, Troponin I High Sens 16 08/29/22 10:55: Lactic Acid 0.8 Micro: Microbiology 08/29/22 11:20 Nasal Secretion SARS-CoV-2 & FLU Antigen (Rapid) - Final Radiology Impression Chest X-Ray 08/29/22 10:28 IMPRESSION: Hyperinflation. COPD. Findings suggestive of scarring at the lung apices. Electronically Signed: Yoni Gu MD at 12:16 EDT , Assessment & Plan Assessment/Plan (1) Acute exacerbation of chronic obstructive pulmonary disease: (2) Respiratory failure: PLAN: Plan The patient is an 82 y/o F w/ PMHx: COPD, HLD, Tobacco use, Chronic bradycadria, Known Lung nodule, Depression and Anxiety, Chronic Protein-Calorie malnutrition who presents to the [facility] ED on 08/29/22 with history of progressively worsening dyspnea over the last 4 days although worse upon ED presentation with productive cough of yellow phlegm with ongoing continued tobacco use but no chronic supplementation with no recent fevers or chills prompting eventual ED evaluation. #1. Acute Respiratory Distress with Acute Hypoxic Respiratory Failure secondary to Acute on Chronic COPD exacerbation: Will admit to PCU given improvement in the ED from initial respiratory distress presentation however she still does have increased work of breathing and some accessory muscle usage thus ABG requested and clarified CODE STATUS of which patient is DNR CCA no intubation, will continue BIPAP and transition to NC as able with wean as tolerated to room air, continue ATC duonebs, PRN albuterol, IV methylprednisolone, HOB, IS parameters, will obtain sputum Cx, respiratory viral panel, procalcitonin, will hold on immediately abx therapy but low threshold to add if appropriate. Given patient's advanced COPD history will request involvement of Dr. Ortega, pulmonary medicine per patient and family preference. #2. Hypokalemia: Admission K+ 3.3, magnesium level requested, supplementation given, repeat level in AM. #3. Elevated BP without hypertensive diagnosis: Noted history of hypotension, initial BP low upon presentation, increased although could be related to her respiratory distress, will continue to monitor and if BP remains elevated above goal certainly would initiate oral regimen at that time, as needed IV hydralazine in interim. #4. Hyperlipidemia: We will continue patient home Zetia regimen. #5. Depression and anxiety: Noted history, per review of current list has previously had trazodone nightly as needed only and not on any other regimen, encourage continued outpatient follow-up and counseling as needed. #6. Tobacco Abuse: Encouraged cessation, inpatient consultation per RT, NR if desired although declined initially as has not had any cigarettes for the last 4 days with onset of her respiratory issues. #7. Severe protein calorie malnutrition: Evidenced by significantly reduced BMI/muscle and fat loss, likely secondary to underlying chronic lung disease, will request nutrition consultation for recommendations. #8. DVT prophylaxis: Lovenox. #9. CODE status: Patient HCPOA and healthcare power of leasing agent are not in place. She does note that if anything occurred she would want her children to be her medical decision makers. ED staff did discuss CODE STATUS with patient however given her situation repeated discussions. Very specific discussed CODE status at length including difference between FULL code, DNR-CCA and DNR-CC status. Following discussions about the differences in these status, requested in front of family present DNR CCA, no intubation status. Advanced Care Planning Face to Face Time: 16 minutes. Admission Evaluation Time spent evaluating chart, patient history, patient evaluation, care planning and discussion with specialists: 55 minutes. Charges/Coding Visit Charges Inpatient E&M: 63582 Init Hosp L3 Procedures Hospitalists Procedures: 85882 Advncd Care Plan 30 Min
[2022-08-29 13:12] LABS: Procalcitonin 0.07 ng/mL (0.00-0.09)
[2022-08-29 13:22] LABS: Magnesium 2.4 mg/dL (1.6-2.6)
--- NOTE | 2022-08-29 13:31 | NURSING ---
PCU [place] FAILURE, COPD
--- NOTE | 2022-08-29 14:04 | NURSING ---
NEW ROOM ICU 4
[2022-08-29 14:19] LABS: Blood Gas Specimen Type VEN; O2 Delivery Device BiPAP; RR 12; VBG BASE EXCESS 0 mmol/L (-1.0-3.5); VBG Bicarbonate 25 mmol/L (22-26); VBG PO2 36 mmHg (25-40); VBG SO2 67 % (50-70); VBG TCO2 27 mmol/L (23-33); VBG pCO2 44.6 mmHg (41-51); VBG pH 7.36 (7.32-7.42)
--- NOTE | 2022-08-29 14:30 | ED.RN ---
REPORT CALLED TO SORAYA, ICU
--- NOTE | 2022-08-29 15:12 | ED.RN ---
Addendum entered by Nancy Mejía 08/29/22 15:16: RIGHT FOREARM, SECOND IV. Original Note: SPOKE WITH DR. SIMPSON REGARDING PATIENT BLOOD PRESSURES AND THE FAMILY AND PATIENT STATING PATIENT HISTORICALLY RUNS LOW, THEY SPECIFIED INTO THE 80S AND 90S THEY HAVE SEEN ON A NORMAL BASIS. SHE WAS AWARE OF THIS WELL. PATIENT HAD A LOWER BLOOD PRESSURE, OUTSIDE THE RANGE WE HAVE HAD IN THE ED, WHEN I WENT TO TAKE PATIENT TO THE ICU. SECOND LARGE BORE IV PLACED IN LEFT FOREARM.
[2022-08-29] MEDS: 0.9% Normal Saline 1,000 ML 100 ML IV (15:25)
[2022-08-29] MEDS: Potassium Chloride Oral Tablet 20 MEQ 40 MEQ PO (15:40)
[2022-08-29] MEDS: LORazepam 2 MG/ML Syringe 0.5 MG IV (16:45)
[2022-08-29] MEDS: Methylprednisolone Sod Succ 40 MG/ML VIAL IV (19:37)
[2022-08-30] VITALS (21 sets, daily range): BP systolic 78–154; BP diastolic 57–84; PULSE 73–102; RESP 12–32; TEMP 36.2–36.8; O2SAT 93–99; BMI 18.1
[2022-08-30 03:33] LABS: Absolute Lymphocyte Count 0.56 X10^3/uL (0.83-4.51); Absolute Neutrophil Count 4.5 X10^3/uL (2.0-7.7); Basophil# 0.01 X10^3/uL; Basophil% 0.2 % (0-1); Hematocrit 35.8 % (37-47); Hemoglobin 11.4 g/dL (12.0-15.0); Lymphocyte # 0.56 X10^3/ul (0.83-4.51); Lymphocyte % 10.7 % (19-41); Mean Corp Hgb Conc 31.8 g/dL (32-36); Mean Corpuscular Hgb 29.5 pg (27.0-32.0); Mean Corpuscular Volume 92.5 fL (81-99); Mean Platelet Vol. 9.3 fl (6.2-12.0); Monocyte# 0.19 X10^3/uL; Monocyte% 3.6 % (0-10); NRBC Flagged by Analyzer 0 % (0-5); Neutrophil # 4.46 X10^3/uL (2.7-7.7); Neutrophil % 85.1 % (47-70); POSITIVE DIFFERENTIAL YES; Platelet Count 221 K/mm3 (150-450); RBC Distribution Width CV 13.2 % (11.6-14.6); RBC Distribution Width SD 44.3 fl (35.1-43.9); Red Blood Count 3.87 M/mm3 (4.2-5.4); White Blood Count 5.2 K/mm3 (4.4-11.0)
[2022-08-30 03:45] LABS: Differential Indicated SCAN CRITERIA MET
[2022-08-30 03:50] LABS: ALB/GLOB Ratio 0.9 RATIO (0.9-2.4); AST(SGOT) 19 U/L (15-37); Alanine Aminotransfer ALT/SGPT 17 U/L (13-56); Albumin, Serum 2.8 g/dL (3.2-5.0); Alkaline Phosphatase 64 U/L (45-117); Anion Gap 8 (5-15); BUN 9 mg/dL (7-18); BUN/Creat Ratio 17.6 RATIO (10-20); Chloride 111 mmol/L (98-107); Creatinine, Serum 0.51 mg/dL (0.55-1.02); EST Glomerular Filtration Rate 122 mL/min (>60); Est Glom Filt Rate - Afr Amer 148 mL/min (>60); Estimated Creatinine Clearance 29.94 ml/min; Globulin 3.1 g/dL (2.2-4.2); Glucose 141 mg/dL (74-106); Potassium 4.1 mmol/L (3.5-5.1); Protein, Total 5.9 g/dL (6.4-8.2); Sodium Level 145 mmol/L (136-145)
[2022-08-30] MEDS: Methylprednisolone Sod Succ 40 MG/ML VIAL IV ×2 (05:20→14:18)
--- NOTE | 2022-08-30 06:09 | CON.PCM.CC_ITS ---
Assessment & Plan Assessment/Plan (1) Acute exacerbation of chronic obstructive pulmonary disease: PLAN: Plan RECOMMENDATIONS: 1. Continue scheduled bronchodilators and IV steroids. 2. Continue to monitor hemodynamic status. If blood pressures remain borderline, will administer additional fluids. 3. Encourage incentive spirometer use and mobilize patient as tolerated. 4. Continue appropriate DVT prophylaxis. IMPRESSIONS: 1. Acute hypoxemic respiratory failure secondary to COPD with exacerbation Unclear precipitating etiology for the patient's COPD. However, this may have been precipitated by a upper respiratory infection, given the patient's sinus related complaints and postnasal drip. Given that she remains afebrile without any focal infiltrate on chest imaging, I agree with holding antimicrobials. It is reasonable to continue scheduled bronchodilators and IV steroids. The patient did respond symptomatically to the use of BiPAP. She has been weaned at this time and is maintaining appropriate oxygen saturations on room air. Given her borderline hemodynamics, we will continue to monitor her clinically. 2. History of depression/anxiety/tobacco dependency/hyperlipidemia Complicates care, management, recovery and prognosis. Continue home medications as indicated. I personally spent 3 minutes discussing the deleterious effects of continued tobacco use with the patient, including modalities which could be utilized to achieve a smoke-free lifestyle. This note was generated with [employer] dictation software. It may contain incorrect words, spelling, and punctuation that were not noted in checking the note before signing. HPI Consult Data Date of Consult: 08/31/22 HPI Narrative Reason for Consultation: Respiratory failure HPI Narrative: The patient is an 82-year-old female, with a history as outlined below, who presented to the emergency department on August 29 with generalized weakness, cough, shortness of breath and poor p.o. intake. The patient reported that she initially thought that she had a sinus infection with significant postnasal drip. The patient continues to smoke 0.5 packs of cigarettes per day, but reported that she last smoked a cigarette 3 to 4 days ago. She is currently prescribed Stiolto Respimat on an outpatient basis. She reported infrequent use of her rescue inhaler, despite the aforementioned symptoms. She denied any recent sick contact exposure. She does not utilize supplemental oxygen at her baseline. The patient initially presented for evaluation in the pulmonary medicine clinic in December 2018 due to underlying COPD. The patient has a smoking history that includes 0.5 to 1 pack of cigarettes per day x50 years.? In addition, the patient did grow up in a smoking household as well.? She was employed previously working in an office setting.? She has lived in [place] her entire life. It does appear that the patient had spirometry testing completed in 2016 which did reveal evidence of COPD with an FEV1 at that time noted to be 42% of predicted. Surface echocardiogram from August 2018 revealed normal LV size and function with an ejection fraction of 60% and a right ventricular systolic pressure estimated to be 31 mmHg. Pulmonary function studies completed in December 2018 revealed evidence of an irreversible moderate large airways obstructive ventilatory defect with associated air trapping and mild reduction in diffusing capacity.? A 6-minute walk test last completed in July 2020 showed no evidence of significant exertional oxygen desaturation. On presentation to the emergency department, the patient was noted to be afebrile and hemodynamically stable. Laboratory evaluation revealed no evidence of a leukocytosis. Coagulation profile revealed a D-dimer of 0.72. Chemistry profile was notable for a potassium of 3.3. Creatinine was within normal limits. Lactate was within normal limits. Troponin was negative. Procalcitonin level was normal. Respiratory viral panel was negative. Rapid COVID and influenza screens were negative. Chest x-ray demonstrated hyperinflated lung [place] without acute cardiopulmonary process. Due to i ncreased work of breathing and tenuous hemodynamics, the patient was placed on BiPAP therapy and admitted to the medical intensive care unit for further management. This morning, the patient was able to be weaned from BiPAP therapy and is maintaining appropriate oxygen saturations on room air. Her blood pressures remain borderline. However, she is mentating appropriately without issue. [facility] Medical History Bradycardia COPD (chronic obstructive pulmonary disease) Depression Essential hypertension Lung nodule Pure hypercholesterolemia Tobacco abuse Trigeminal neuralgia Vertigo Home Medications coenzyme Q10 200 mg capsule 200 mg PO DAILY 07/31/18 [History Last Taken 1 Week Ago ~08/22/22] aspirin 325 mg tablet 325 mg PO DAILY 08/01/18 [History Last Taken 08/28/22] cholecalciferol (vitamin D3) 50 mcg (2,000 unit) capsule 2,000 unit PO DAILY 08/01/18 [History Last Taken 1 Week Ago ~08/22/22] tiotropium 2.5 mcg-olodaterol 2.5 mcg/actuation mist for inhalation (Stiolto Respimat) 2 inh inhalation DAILY #4 grams 03/16/22 [Rx Last Taken 08/28/22] Allergy/AdvReac Type Severity Reaction Status Date / Time No Known Allergies Allergy Unverified 08/29/22 10:20 Family History Mother Heart disease Father Heart disease Diabetes Grandfather CVA (cerebral vascular accident) Brother Heart disease Surgical History History of hysterectomy History of lung biopsy Social History (Updated 08/29/22 @ 12:[address] Jannet Tubbs MD) household members: none Smoking Status: Current some day smoker tobacco type: cigarettes alcohol intake: never substance use type: does not use caffeine: Yes Type: carbonated beverages Number of servings: 2 ROS ROS Narrative 10 systems were reviewed with pertinent positives as noted in the HPI above. Physical Exam Const alert, oriented x3 and no apparent distress General Appearance: cooperative HEENT normocephalic, head/scalp atraumatic and moist oral mucous membranes Eyes PERRL, EOMs intact bilaterally and conjunctivae normal Neck supple General: trachea midline Chest inspection of chest normal Resp normal respiratory effort Auscultation: diminished lung sounds; Negative for rales, rhonchi or wheezes Cardio regular rate and regular rhythm GI normal to inspection, nondistended, normoactive bowel sounds Extremity no clubbing, cyanosis or edema Skin no rashes or lesions noted Neuro oriented x3, CN's II-XII intact bilaterally and moves all extremities Psych cooperative and affect normal Lab / Micro Data Result Diagrams: 08/31/22 05:50 08/31/22 05:50 Labs: Laboratory Results - last 24 hr 08/29/22 10:55: WBC 6.0, RBC 4.26, Hgb 12.9, Hct 39.0, MCV 91.5, MCH 30.3, MCHC 33.1, RDW Std Deviation 43.5, RDW Coeff of [place] 13.0, Plt Count 241, MPV 9.6, Immature Gran % (Auto) 0.300, Neut % (Auto) 73.2 H, Lymph % (Auto) 17.1 L, [place] % (Auto) 8.6, Eos % (Auto) 0.5, Baso % (Auto) 0.3, Absolute Neuts (auto) 4.4, Absolute Lymphs (auto) 1.03, Nucleated RBC % 0 08/29/22 10:55: D-Dimer Quant (PE/DVT) 0.72 H* 08/29/22 10:55: Sodium 140, Potassium 3.3 L, Chloride 104, Carbon Dioxide 28.0, Anion Gap 8, BUN 7, Creatinine 0.65, Estim Creat Clear Calc 30.08, Est GFR (MDRD) Af Amer 112, Est GFR (MDRD) Non-Af 93, BUN/Creatinine Ratio 10.8, Glucose 106, Calcium 8.9, Troponin I High Sens 16 08/29/22 10:55: Lactic Acid 0.8 08/29/22 10:55: Magnesium 2.4 08/29/22 12:40: Procalcitonin 0.07 08/30/22 03:25: WBC 5.2, RBC 3.87 L, Hgb 11.4 L, Hct 35.8 L, MCV 92.5, MCH 29.5, MCHC 31.8 L, RDW Std Deviation 44.3 H, RDW Coeff of [place] 13.2, Plt Count 221, MPV 9.3, Immature Gran % (Auto) 0.400, Neut % (Auto) 85.1 H, Lymph % (Auto) 10.7 L, [place] % (Auto) 3.6, Eos % (Auto) 0.0, Baso % (Auto) 0.2, Absolute Neuts (auto) 4.5, Absolute Lymphs (auto) 0.56 L, Nucleated RBC % 0 08/30/22 03:25: Sodium 145, Potassium 4.1, Chloride 111 H, Carbon Dioxide 26.0, Anion Gap 8, BUN 9, Creatinine 0.51 L, Estim Creat Clear Calc 29.94, Est GFR (MDRD) Af Amer 148, Est GFR (MDRD) Non-Af 122, BUN/Creatinine Ratio 17.6, Glucose 141 H, Calcium 8.0 L, Total Bilirubin 0.30, AST 19, ALT 17, Alkaline Phosphatase 64, Total Protein 5.9 L, Albumin 2.8 L, Globulin 3.1, Albumin/G lobulin Ratio 0.9 Micro: Microbiology 08/29/22 15:15 Mucosa - Nasopharyngeal Respiratory Panel (PCR) - Final 08/29/22 11:20 Nasal Secretion SARS-CoV-2 & FLU Antigen (Rapid) - Final ABG Data ABG results: ABG 08/29/22 14:11 Specimen Type DEMAR VBG pH 7.36 VBG pO2 36 VBG HCO3 25 VBG Total CO2 27 VBG O2 Sat (Calc) 67 VBG Base Excess 0 POC Mix VBG pCO2 Pt Tmp 44.6 Respiration Rate 12 O2 Delivery Device BiPAP Radiology Impression Chest X-Ray 08/29/22 10:28 IMPRESSION: Hyperinflation. COPD. Findings suggestive of scarring at the lung apices. Electronically Signed: Yoni Gu MD at 12:16 EDT , Charges/Coding Visit Charges Inpatient E&M: 37989 Init Hosp L3 Procedures Hospitalists Procedures: Other Procedure - See Report ([id number])
--- NOTE | 2022-08-30 06:29 | PN.HOSP_ITS ---
Reason for Visit Reason for Visit: Diagnoses Chronic obstructive pulmonary disease with (acute) exacerbation (08/29/22) Respiratory failure, unspecified, unspecified whether with hypoxia or hypercapnia (08/29/22) Subjective Subjective Patient with no acute events overnight per self and per nursing report with successful de-escalation off of BiPAP. She notes feeling much improved since initial ED presentation with significant greater ease of breathing and no marked wheezing. Again discussed importance of complete tobacco cessation. Patient eager for oral intake and diet was started without issue. Blood pressures remained stable low and again patient confirmed that she routinely is in the 80s however low-dose IV fluids are still going. Discussed with propulsion machinery service engineer and they are amenable for her transitioning to PCU. Patient denies fevers, chills, nausea, emesis, abdominal pain, chest pain or recurrent or worsened dyspnea. Objective Data Objective Data Vital Signs: Vital Signs Temp Pulse Resp BP Pulse Ox O2 Del Method O2 Flow Rate 98 F 75 20 H 86/59 L 99 Bi-pap 6 08/30/22 06:00 08/30/22 06:00 08/30/22 06:00 08/30/22 06:00 08/30/22 06:00 08/30/22 06:00 08/29/22 21:00 FiO2 30 08/30/22 06:00 Oxygen Flow Rate (L/min) 6 Oxygen Delivery Method Bi-pap Weight: 99 lb 3.328 oz Body Mass Index (BMI) 18.1 Intake & Output: Intake and Output for Last 24 Hours 08/28/22 08/29/22 08/30/22 23:59 23:59 23:59 Intake Total 1999.1999. Output Total 50 / 50 300 / 300 Balance 1950.00 / 1950.00 -300 / -300 Lab / Micro Data Result Diagrams: 08/30/22 03:25 08/30/22 03:25 Labs: Laboratory Results - last 24 hr 08/29/22 10:55: WBC 6.0, RBC 4.26, Hgb 12.9, Hct 39.0, MCV 91.5, MCH 30.3, MCHC 33.1, RDW Std Deviation 43.5, RDW Coeff of [place] 13.0, Plt Count 241, MPV 9.6, Immature Gran % (Auto) 0.300, Neut % (Auto) 73.2 H, Lymph % (Auto) 17.1 L, [place] % (Auto) 8.6, Eos % (Auto) 0.5, Baso % (Auto) 0.3, Absolute Neuts (auto) 4.4, Absolute Lymphs (auto) 1.03, Nucleated RBC % 0 08/29/22 10:55: D-Dimer Quant (PE/DVT) 0.72 H* 08/29/22 10:55: Sodium 140, Potassium 3.3 L, Chloride 104, Carbon Dioxide 28.0, Anion Gap 8, BUN 7, Creatinine 0.65, Estim Creat Clear Calc 30.08, Est GFR (MDRD) Af Amer 112, Est GFR (MDRD) Non-Af 93, BUN/Creatinine Ratio 10.8, Glucose 106, Calcium 8.9, Troponin I High Sens 16 08/29/22 10:55: Lactic Acid 0.8 08/29/22 10:55: Magnesium 2.4 08/29/22 12:40: Procalcitonin 0.07 08/30/22 03:25: WBC 5.2, RBC 3.87 L, Hgb 11.4 L, Hct 35.8 L, MCV 92.5, MCH 29.5, MCHC 31.8 L, RDW Std Deviation 44.3 H, RDW Coeff of [place] 13.2, Plt Count 221, MPV 9.3, Immature Gran % (Auto) 0.400, Neut % (Auto) 85.1 H, Lymph % (Auto) 10.7 L, [place] % (Auto) 3.6, Eos % (Auto) 0.0, Baso % (Auto) 0.2, Absolute Neuts (auto) 4.5, Absolute Lymphs (auto) 0.56 L, Nucleated RBC % 0 08/30/22 03:25: Sodium 145, Potassium 4.1, Chloride 111 H, Carbon Dioxide 26.0, Anion Gap 8, BUN 9, Creatinine 0.51 L, Estim Creat Clear Calc 29.94, Est GFR (MDRD) Af Amer 148, Est GFR (MDRD) Non-Af 122, BUN/Creatinine Ratio 17.6, Glucose 141 H, Calcium 8.0 L, Total Bilirubin 0.30, AST 19, ALT 17, Alkaline Phosphatase 64, Total Protein 5.9 L, Albumin 2.8 L, Globulin 3.1, Albumin/Globulin Ratio 0.9 Micro: Microbiology 08/29/22 15:15 Mucosa - Nasopharyngeal Respiratory Panel (PCR) - Final 08/29/22 11:20 Nasal Secretion SARS-CoV-2 & FLU Antigen (Rapid) - Final ABG Data ABG results: ABG 08/29/22 14:11 Specimen Type DEMAR VBG pH 7.36 VBG pO2 36 VBG HCO3 25 VBG Total CO2 27 VBG O2 Sat (Calc) 67 VBG Base Excess 0 POC Mix VBG pCO2 Pt Tmp 44.6 Respiration Rate 12 O2 Delivery Device BiPAP Radiography Diagnostic Testing: Radiology Impression Chest X-Ray 08/29/22 10:28 IMPRESSION: Hyperinflation. COPD. Findings suggestive of scarring at the lung apices. Electronically Signed: Yoni Gu MD at 12:16 EDT , Physical Exam Narrative Physical Examination: General: Awake, alert, oriented x 3 and cooperative, seated upright in the ICU bed, significantly improved appearance, BiPAP off, transition to nasal cannula, notes feeling significantly improved since initial ED arrival. Skin: Normal color, normal turgor, no icterus, no cyanosis. HEENT: AT/NC, EOMI, PERRLA, dry MM. Lungs: Notably diminished but significantly improved aeration since day prior, occasional soft end expiratory wheeze, off the BiPAP, no evidence of any distress, no obvious rales or rhonchi. Heart: Currently regular rate with regular rhythm; no gallop, rub audible. Abdomen: Soft, thin cachectic habitus, NTTP, ND, distant normal BS. Extremities: No cyanosis, clubbing, or edema. Neurological: Patient awake, alert, oriented as noted, cognitive function intact; pupils equally reactive to light and accommodation, cranial nerves II- XII grossly normal, moving all 4 extremities, no focal deficits, strength improved, moderately globally decreased. Psychiatric: Affect appears fatigued, no acute evidence of depressive or anxiety feelings. Assessment & Plan Assessment/Plan (1) Acute exacerbation of chronic obstructive pulmonary disease: (2) Respiratory failure: PLAN: Plan The patient is an 82 y/o F w/ PMHx: COPD, HLD, Tobacco use, Chronic bradycadria, Known Lung nodule, Depression and Anxiety, Chronic Protein-Calorie malnutrition who presents to the [facility] ED on 08/29/22 with history of progressively worsening dyspnea over the last 4 days although worse upon ED presentation with productive cough of yellow phlegm with ongoing continued tobacco use but no chronic supplementation with no recent fevers or chills prompting eventual ED evaluat ion. #1. Acute Respiratory Distress with Acute Hypoxic Respiratory Failure secondary to Acute on Chronic COPD exacerbation: Initial plan had been to admit to the PCU as patient had confirmed chronically low blood pressure however systolics did decrease into the 70s in the ED therefore transitioned initially to the ICU, maintain on BiPAP, propulsion machinery service engineer consulted and followed. Patient clinically i mproved overnight with BiPAP de-escalation to nasal cannula successfully. Patient maintained on ATC duonebs, PRN albuterol, IV methylprednisolone, HOB, IS parameters. Full respiratory panel negative. Sputum culture has been requested. Procalcitonin 0.07. CBC with no marked WC elevation or left shift. Remained afebrile. No antibiotics were initiated. Pulmonary was consulted given patient intensive care unit admission. 08/30/22 given clinical improvement, off BIPAP, will transition to PCU. #2. Hypokalemia: Admission K+ 3.3, magnesium level requested, supplementation given, repeat level 08/30/22 K 4.1. #3. Elevated BP without hypertensive diagnosis-->eventually became Hypotensive, noted to be chronic (SBP normally in the 80s): Noted history of hypotension, initial BP low upon presentation, increased above goal although could be related to her respiratory distress. Patient upon ED transition to PCU with then onset recurrent hypotension; however, SBP decreased into 70s, thus transitioned to ICU to be cautious. BPs remained stable, SBP 80-110. Transitioning to PCU 08/30/22. #4. Hyperlipidemia: We will continue patient home Zetia regimen. #5. Depression and anxiety: Noted history, per review of current list has previously had trazodone nightly as needed only and not on any other regimen, encourage continued outpatient follow-up and counseling as needed. #6. Tobacco Abuse: Encouraged cessation, inpatient consultation per RT, NR if desired although declined initially as has not had any cigarettes for the last 4 days with onset of her respiratory issues. #7. Severe protein calorie malnutrition: Evidenced by significantly reduced BMI/muscle and fat loss, likely secondary to underlying chronic lung disease, will request nutrition consultation for recommendations. #8. DVT prophylaxis: Lovenox. #9. CODE status: DNR CCA, no intubation status. Admission Evaluation Time spent evaluating chart, patient history, patient evaluation, care planning and discussion with specialists: 35 minutes. Charges/Coding Visit Charges Inpatient E&M: 73113 Subs Hosp L2
[2022-08-30] MEDS: Ipratropium/Albuterol Sulfate 3 ML AMPUL.NEB INHALATION ×4 (07:04→19:24)
[2022-08-30] MEDS: 0.9% Normal Saline 1,000 ML 100 ML IV ×2 (09:34→18:57)
[2022-08-30] MEDS: Aspirin 81 MG TAB.CHEW PO (09:43)
[2022-08-30] MEDS: Ensure Clear 120 ML Liquid PO ×2 (09:43→14:18)
[2022-08-30] MEDS: Enoxaparin 30 MG/0.3 ML Syringe SC (09:44)
--- NOTE | 2022-08-30 10:40 | CASEMGMT ---
RN?CM?READING EFFICIENCY COURSE DIRECTOR?CM?to room to meet with patient for initial transition planning/care coordination?assessment.?RN?CM?introduced self and role at [facility].? Pt voices understanding and consents to?assessment?at this time.? Pt resting in bed in no distress at this time.? Dtr, Kayla, @ bedside and pt agreeable to her being present. Pt is A/O at this time and answers all questions appropriately.?? Care providers, pharmacy, and demographics verified/updated at this time. PCP: Cinda Moura Specialists: Dr Ortega/Laura Leonard, HEALTH UNDERWRITER- Pulmonology Preferred Pharmacy: [facility] Retail Insurance:[employer] Prescription Benefit:?Yes Living Will/HPOA:?Pt does not currently have LW/HCPOA and interested in completing. Olivia GARNER, made aware. LNOK: Dtr, Kayla. Dtr, Sergio. Son, Doug. Living Arrangements: Lives w/her dtr, Kayla, in one-story home w/no steps to enter. Indep w/ADL's and manages her own medications and appts. Dtr does most IADL's. Transportation:?Pt states drives self and states no transportation concerns at this time.?Dtr also drives. DME: ? Denies using any DME and denies needs.? Pt does have a pulse ox. No home O2. Verbal review of local DME companies and made aware [facility] is affiliated w/[facility]. Pt states is okay w/[employer] if she qualifies for Home O2. Discussed home O2 set-up process. HHC/SNF: No hx of either. Pt states does not think she will need HHC or OP therapy. PT/OT evals pending. Pt/dtr made aware therapy may give recommendations and CM can f/u with her afterwards. Pt wishes to return home and states has no concerns with going home at time of discharge.? Pt smokes 1/2-1 PPD, but per dtr, she just quit As of . ?CM?to follow for home oxygen needs and any further discharge planning/needs.? Pt and dtr voice no further concerns/needs at this time.? Advised pt and dtr to ask for?CM?if any further questions/concerns/needs arise.? They voice understanding. PLAN:??Home. Follow for possible O2 @ d/c PT/OT evals pending. Follow for possible HHC vs OP therapy and/or WW. Betty BSN?RN?CM
[2022-08-30] MEDS: 0.9% Saline Lock 10 ML Syringe IV (21:13)
[2022-08-31] VITALS (9 sets, daily range): BP systolic 111–148; BP diastolic 72–80; PULSE 69–91; RESP 18–20; TEMP 36.2–36.6; O2SAT 92–99; BMI 18.3
[2022-08-31] MEDS: 0.9% Normal Saline 1,000 ML 100 ML IV (03:47)
[2022-08-31] MEDS: 0.9% Saline Lock 10 ML Syringe IV ×2 (05:41→21:12)
[2022-08-31 06:22] LABS: Absolute Neutrophil Count 11.4 X10^3/uL (2.0-7.7); Basophil# 0.01 X10^3/uL; Basophil% 0.1 % (0-1); Hemoglobin 10.4 g/dL (12.0-15.0); Lymphocyte % 5.4 % (19-41); Mean Corp Hgb Conc 32.5 g/dL (32-36); Mean Corpuscular Hgb 30.3 pg (27.0-32.0); Mean Corpuscular Volume 93.3 fL (81-99); Mean Platelet Vol. 9.6 fl (6.2-12.0); Monocyte# 0.69 X10^3/uL; Monocyte% 5.3 % (0-10); NRBC Flagged by Analyzer 0 % (0-5); Neutrophil # 11.44 X10^3/uL (2.7-7.7); Neutrophil % 88.5 % (47-70); Platelet Count 286 K/mm3 (150-450); RBC Distribution Width CV 13.3 % (11.6-14.6); RBC Distribution Width SD 45.4 fl (35.1-43.9); Red Blood Count 3.43 M/mm3 (4.2-5.4); White Blood Count 12.9 K/mm3 (4.4-11.0)
[2022-08-31 06:58] LABS: AST(SGOT) 25 U/L (15-37); Alanine Aminotransfer ALT/SGPT 19 U/L (13-56); Albumin, Serum 2.7 g/dL (3.2-5.0); Alkaline Phosphatase 57 U/L (45-117); Anion Gap 7 (5-15); BUN 14 mg/dL (7-18); BUN/Creat Ratio 32.8 RATIO (10-20); Calcium,Total 7.9 mg/dL (8.5-10.1); Chloride 113 mmol/L (98-107); Creatinine, Serum 0.43 mg/dL (0.55-1.02); EST Glomerular Filtration Rate 150 mL/min (>60); Est Glom Filt Rate - Afr Amer 182 mL/min (>60); Estimated Creatinine Clearance 30.62 ml/min; Globulin 2.8 g/dL (2.2-4.2); Glucose 131 mg/dL (74-106); Potassium 3.3 mmol/L (3.5-5.1); Protein, Total 5.5 g/dL (6.4-8.2); Sodium Level 144 mmol/L (136-145)
[2022-08-31] MEDS: Ipratropium/Albuterol Sulfate 3 ML AMPUL.NEB INHALATION ×4 (07:14→20:28)
[2022-08-31] MEDS: Aspirin 81 MG TAB.CHEW PO (07:56)
[2022-08-31] MEDS: Enoxaparin 30 MG/0.3 ML Syringe SC (07:56)
[2022-08-31] MEDS: Ensure Clear 120 ML Liquid PO ×3 (08:27→16:56)
--- NOTE | 2022-08-31 09:46 | PCM.PN.HOSP ---
Reason for Visit Reason for Visit: Diagnoses Chronic obstructive pulmonary disease with (acute) exacerbation (08/29/22) Respiratory failure, unspecified, unspecified whether with hypoxia or hypercapnia (08/29/22) Subjective Subjective Still feeling somewhat generally unwell and short of breath Objective Data Objective Data Vital Signs: Vital Signs Temp Pulse Resp BP Pulse Ox O2 Del Method O2 Flow Rate 97.8 F 87 18 139/73 H 92 Nasal Cannula 2 08/31/22 07:50 08/31/22 07:50 08/31/22 07:50 08/31/22 07:50 08/31/22 07:50 08/31/22 07:50 08/31/22 07:50 FiO2 30 08/30/22 06:00 Oxygen Flow Rate (L/min) 2 Oxygen Delivery Method Nasal Cannula Weight: 45.5 kg Body Mass Index (BMI) 18.3 Intake & Output: Intake and Output for Last 24 Hours 08/29/22 08/30/22 08/31/22 23:59 23:59 23:59 Intake Total 1999. / 1999. 1178.33 / 1178.33 1183.33 / 1183.33 Output Total 50 / 50 450 / 450 500 / 500 Balance 1950.00 / 1950.00 728.33 / 728.33 683.33 / 683.33 Medical Nutrition Assessment Dietitian: Malnutrition Criteria Met Start: 08/30/22 09:30 Freq: Status: Active Protocol: Document 08/30/22 09:31 (Rec: 08/30/22 09:31 [id number]) Nutrition Malnutrition Evidence of Malnutrition Exists Yes Malnutrition (severe): Chronic Evidenced By Suboptimal Energy Intake ( Severe),Physical Changes ( Severe) Clinical Problem Chronic Disease or Condition Related Malnutrition Etiology severe, chronic malnutrition related to inadequate energy intake w/ increased energy needs d/t COPD Signs/Symptoms as evidenced by estimated PO intake meeting <75% of estimated energy needs >3 months; Severe muscle wasting/ fat loss evident per physical exam in orbital, clavicle, acromion, and temporal areas; BMI 18.1 Status Active Problem Recommendation Dietitian Recommendations/Changes continue regular diet given evidence of malnutrition; will add 120mL ensure clear 4x/day w/ medpass and magic cup BID w/ lunch and dinner for additional nutrition if consumed. Lab / Micro Data Result Diagrams: 08/31/22 05:50 08/31/22 05:50 Labs: Laboratory Results - last 24 hr 08/31/22 05:50: WBC 12.9 H, RBC 3.43 L, Hgb 10.4 L, Hct 32.0 L, MCV 93.3, MCH 30.3, MCHC 32.5, RDW Std Deviation 45.4 H, RDW Coeff of [place] 13.3, Plt Count 286, MPV 9.6, Immature Gran % (Auto) 0.700, Neut % (Auto) 88.5 H, Lymph % (Auto) 5.4 L, [place] % (Auto) 5.3, Eos % (Auto) 0.0, Baso % (Auto) 0.1, Absolute Neuts (auto) 11.4 H, Absolute Lymphs (auto) 0.70 L, Nucleated RBC % 0 08/31/22 05:50: Sodium 144, Potassium 3.3 L, Chloride 113 H, Carbon Dioxide 24.0, Anion Gap 7, BUN 14, Creatinine 0.43 L, Estim Creat Clear Calc 30.62, Est GFR (MDRD) Af Amer 182, Est GFR (MDRD) Non-Af 150, BUN/Creatinine Ratio 32.8 H, Glucose 131 H, Calcium 7.9 L, Total Bilirubin 0.30, AST 25, ALT 19, Alkaline Phosphatase 57, Total Protein 5.5 L, Albumin 2.7 L, Globulin 2.8, Albumin/Globulin Ratio 1.0 Micro: Microbiology 08/29/22 10:55 Blood Culture (Wb) - Anticubital Left Blood Culture - Preliminary No growth in 48 hours. 08/29/22 15:15 Mucosa - Nasopharyngeal Respiratory Panel (PCR) - Final 08/29/22 11:20 Nasal Secretion SARS-CoV-2 & FLU Antigen (Rapid) - Final Physical Exam Narrative General: Alert, oriented, thin HEENT: Atraumatic, normocephalic Eyes: Anicteric, normal conjunctiva, extraocular movements grossly intact Neck: Supple Respiratory: Scattered wheezes, getting breathing treatment Cardiovascular: Regular rate and rhythm GI: Soft, nontender, nondistended Extremities: No edema Musculoskeletal: Moving all extremities Neuro: No overt focal neurological deficits Skin: No rashes appreciated Psych: Cooperative, appears anxious Assessment & Plan Assessment/Plan (1) Acute exacerbation of chronic obstructive pulmonary disease: (2) Respiratory failure: PLAN: Plan #Acute respiratory distress with acute hypoxia secondary to acute exacerbation of chronic COPD -No infiltrate on chest x-ray -Respiratory work-up otherwise negative, unclear exacerbating factor -Continue bronchodilators and IV steroids -Wean O2 as tolerated -We will need prednisone taper on discharge and follow-up with pulmonology in 2 weeks #Hypotension -Chronically runs low however systolic started going to the 70s and initially was transferred to the ICU and maintained on BiPAP -She was able to be de-escalated to nasal cannula and sent back to floor -Presently on fluids -BP seems to have improved overnight -Can consider echocardiogram if further problems arise -Last echo 08/2018 with EF of 60% and no diastolic dysfunction noted #Tobacco use -Advise cessation #DVT ppx: Lovenox subcu Nano Oliva MD Time spent in the patient's overall evaluation,decision-making process, review of diagnostic data, adjustment of management, discussion with other providers, nursing nursing and ancillary staff involved in patient's care documentation, 30 minutes Charges/Coding Visit Charges Inpatient E&M: 88984 Subs Hosp L2
--- NOTE | 2022-08-31 10:25 | PCM.PN.INT ---
Assessment & Plan Assessment/Plan (1) Acute exacerbation of chronic obstructive pulmonary disease: PLAN: Plan RECOMMENDATIONS: 1. Continue scheduled bronchodilators and IV steroids. Anticipate need for prednisone taper at discharge. 2. Encourage incentive spirometer use and mobilize patient as tolerated. 3. Perform walking oximetry study prior to consideration for discharge home. 4. Continue appropriate DVT prophylaxis. 5. Outpatient pulmonary follow-up in 2 weeks. IMPRESSIONS: 1. Acute hypoxemic respiratory failure secondary to COPD with exacerbation Unclear precipitating etiology for the patient's COPD. However, this may have been precipitated by a upper respiratory infection, given the patient's sinus related complaints and postnasal drip. Given that she remains afebrile without any focal infiltrate on chest imaging, I agree with holding antimicrobials. It is reasonable to continue scheduled bronchodilators and IV steroids. The patient did respond symptomatically to the use of BiPAP. She has been weaned at this time and is maintaining appropriate oxygen saturations on room air. Anticipate need for prednisone taper at discharge. 2. History of depression/anxiety/tobacco dependency/hyperlipidemia Complicates care, management, recovery and prognosis. Continue home medications as indicated. Tobacco cessation counseling was provided. This note was generated with [employer] dictation software. It may contain incorrect words, spelling, and punctuation that were not noted in checking the note before signing. Subjective Subjective The patient was seen and examined at the bedside this morning. Events from the last 24 hours have been reviewed. The patient is currently afebrile, hemodynamically stable and maintaining appropriate oxygen saturations on 2 L/min via nasal cannula. Objective Data Objective Data The patient's most recent lab work, culture data and imaging studies have all been personally reviewed. Vital Signs: Vital Signs Temp Pulse Resp BP Pulse Ox O2 Del Method O2 Flow Rate 97.8 F 87 18 139/73 H 92 Nasal Cannula 2 08/31/22 07:50 08/31/22 07:50 08/31/22 07:50 08/31/22 07:50 08/31/22 07:50 08/31/22 07:50 08/31/22 07:50 FiO2 30 08/30/22 06:00 Oxygen Flow Rate (L/min) 2 Oxygen Delivery Method Nasal Cannula Weight: 100 lb 4.965 oz Body Mass Index (BMI) 18.3 Intake & Output: Intake and Output for Last 24 Hours 0508/30/22 08/31/22 23:59 23:59 23:59 Intake Total 1999. 1178.33 / 1178.33 1183.33 / 1183.33 Output Total 50 / 50 450 / 450 500 / 500 Balance 1949. / 1949.00 728.33 / 728.33 683.33 / 683.33 Medical Nutrition Assessment Dietitian: Malnutrition Criteria Met Start: 08/30/22 09:30 Freq: Status: Active Protocol: Document 08/30/22 09:31 AG (Rec: 08/30/22 09:31 [id number]) Nutrition Malnutrition Evidence of Malnutrition Exists Yes Malnutrition (severe): Chronic Evidenced By Suboptimal Energy Intake ( Severe),Physical Changes ( Severe) Clinical Problem Chronic Disease or Condition Related Malnutrition Etiology severe, chronic malnutrition related to inadequate energy intake w/ increased energy needs d/t COPD Signs/Symptoms as evidenced by estimated PO intake meeting <75% of estimated energy needs >3 months; Severe muscle wasting/ fat loss evident per physical exam in orbital, clavicle, acromion, and temporal areas; BMI 18.1 Status Active Problem Recommendation Dietitian Recommendations/Changes continue regular diet given evidence of malnutrition; will add 120mL ensure clear 4x/day w/ medpass and magic cup BID w/ lunch and dinner for additional nutrition if consumed. Lab / Micro Data Attestation: I reviewed the patient's lab results. Result Diagrams: 09/01/22 04:48 09/01/22 04:48 Labs: Laboratory Results - last 24 hr 08/31/22 05:50: WBC 12.9 H, RBC 3.43 L, Hgb 10.4 L, Hct 32.0 L, MCV 93.3, MCH 30.3, MCHC 32.5, RDW Std Deviation 45.4 H, RDW Coeff of [place] 13.3, Plt Count 286, MPV 9.6, Immature Gran % (Auto) 0.700, Neut % (Auto) 88.5 H, Lymph % (Auto) 5.4 L, [place] % (Auto) 5.3, Eos % (Auto) 0.0, Baso % (Auto) 0.1, Absolute Neuts (auto) 11.4 H, Absolute Lymphs (auto) 0.70 L, Nucleated RBC % 0 08/31/22 05:50: Sodium 144, Potassium 3.3 L, Chloride 113 H, Carbon Dioxide 24.0, Anion Gap 7, BUN 14, Creatinine 0.43 L, Estim Creat Clear Calc 30.62, Est GFR (MDRD) Af Amer 182, Est GFR (MDRD) Non-Af 150, BUN/Creatinine Ratio 32.8 H, Glucose 131 H, Calcium 7.9 L, Total Bilirubin 0.30, AST 25, ALT 19, Alkaline Phosphatase 57, Total Protein 5.5 L, Albumin 2.7 L, Globulin 2.8, Albumin/Globulin Ratio 1.0 Micro: Microbiology 08/29/22 10:55 Blood Culture (Wb) - Anticubital Left Blood Culture - Preliminary No growth in 48 hours. 08/29/22 15:15 Mucosa - Nasopharyngeal Respiratory Panel (PCR) - Final 08/29/22 11:20 Nasal Secretion SARS-CoV-2 & FLU Antigen (Rapid) - Final Physical Exam Const alert, oriented x3 and no apparent distress General Appearance: cooperative HEENT normocephalic, head/scalp atraumatic and moist oral mucous membranes Eyes PERRL, EOMs intact bilaterally and conjunctivae normal Neck supple General: trachea midline Chest inspection of chest normal Resp normal respiratory effort Auscultation: diminished lung sounds; Negative for rales, rhonchi or wheezes Cardio regular rate and regular rhythm GI normal to inspection, nondistended, normoactive bowel sounds Extremity no clubbing, cyanosis or edema Skin no rashes or lesions noted Neuro oriented x3, CN's II-XII intact bilaterally and moves all extremities Psych cooperative and affect normal Charges/Coding Visit Charges Inpatient E&M: 23757 Subs Hosp L2
[2022-08-31] MEDS: Potassium Chloride Oral Tablet 20 MEQ 40 MEQ PO (10:27)
--- NOTE | 2022-08-31 13:09 | CASEMGMT ---
Per RN CM patient was interested in completing Healthcare Power of [employer] papers. SW met with patient. Another family member was present. SW introduced self and role at [facility]. SW offered to come back later and patient's visitor said that would be good as today is not a good day. SW told them SW is available should they change their mind. Lindsey Peres ASSISTANT PRESS OPERATOR [employer]
[2022-08-31] MEDS: MELATONIN 3 MG TABLET PO (21:15)
[2022-09-01] VITALS (11 sets, daily range): BP systolic 101–153; BP diastolic 68–90; PULSE 71–96; RESP 16–20; TEMP 36.4–36.6; O2SAT 78–100; BMI 18.3
[2022-09-01] MEDS: 0.9% Saline Lock 10 ML Syringe IV (05:12)
[2022-09-01 05:23] LABS: Absolute Lymphocyte Count 0.66 X10^3/uL (0.83-4.51); Absolute Neutrophil Count 11.9 X10^3/uL (2.0-7.7); Basophil# 0.01 X10^3/uL; Basophil% 0.1 % (0-1); Eosinophil# 0.01 X10^3/uL; Eosinophils% 0.1 % (0-5); Hematocrit 32.5 % (37-47); Lymphocyte # 0.66 X10^3/ul (0.83-4.51); Lymphocyte % 4.9 % (19-41); Mean Corp Hgb Conc 33.8 g/dL (32-36); Mean Corpuscular Volume 91.5 fL (81-99); Mean Platelet Vol. 9.4 fl (6.2-12.0); Monocyte% 5.2 % (0-10); NRBC Flagged by Analyzer 0 % (0-5); Neutrophil # 11.86 X10^3/uL (2.7-7.7); Neutrophil % 88.8 % (47-70); Platelet Count 297 K/mm3 (150-450); RBC Distribution Width CV 13.3 % (11.6-14.6); RBC Distribution Width SD 45.4 fl (35.1-43.9); Red Blood Count 3.55 M/mm3 (4.2-5.4); White Blood Count 13.4 K/mm3 (4.4-11.0)
[2022-09-01 05:53] LABS: AST(SGOT) 57 U/L (15-37); Alanine Aminotransfer ALT/SGPT 64 U/L (13-56); Albumin, Serum 2.7 g/dL (3.2-5.0); Alkaline Phosphatase 57 U/L (45-117); Anion Gap 5 (5-15); BUN 18 mg/dL (7-18); BUN/Creat Ratio 33.9 RATIO (10-20); Calcium,Total 8.3 mg/dL (8.5-10.1); Chloride 109 mmol/L (98-107); Creatinine, Serum 0.53 mg/dL (0.55-1.02); EST Glomerular Filtration Rate 117 mL/min (>60); Est Glom Filt Rate - Afr Amer 141 mL/min (>60); Estimated Creatinine Clearance 30.62 ml/min; Globulin 2.8 g/dL (2.2-4.2); Glucose 135 mg/dL (74-106); Potassium 3.8 mmol/L (3.5-5.1); Protein, Total 5.5 g/dL (6.4-8.2); Sodium Level 141 mmol/L (136-145)
[2022-09-01] MEDS: Ipratropium/Albuterol Sulfate 3 ML AMPUL.NEB INHALATION ×3 (06:56→18:56)
[2022-09-01] MEDS: Aspirin 81 MG TAB.CHEW PO (11:03)
[2022-09-01] MEDS: Enoxaparin 30 MG/0.3 ML Syringe SC (11:03)
[2022-09-01] MEDS: Ensure Clear 120 ML Liquid PO (11:04)
[2022-09-01] MEDS: predniSONE 20 MG Tablet 40 MG PO (11:04)
--- NOTE | 2022-09-01 11:13 | PCM.PN.INT ---
Assessment & Plan Assessment/Plan (1) Acute exacerbation of chronic obstructive pulmonary disease: PLAN: Plan RECOMMENDATIONS: 1. Continue scheduled bronchodilators and IV steroids. Anticipate need for prednisone taper at discharge. 2. Encourage incentive spirometer use and mobilize patient as tolerated. 3. Perform walking oximetry study prior to consideration for discharge home. 4. Continue appropriate DVT prophylaxis. 5. Outpatient pulmonary follow-up in 2 weeks. IMPRESSIONS: 1. Acute hypoxemic respiratory failure secondary to COPD with exacerbation Unclear precipitating etiology for the patient's COPD. However, this may have been precipitated by a upper respiratory infection, given the patient's sinus related complaints and postnasal drip. Given that she remains afebrile without any focal infiltrate on chest imaging, I agree with holding antimicrobials. It is reasonable to continue scheduled bronchodilators and IV steroids. The patient did respond symptomatically to the use of BiPAP. Plan to perform a walking oximetry study prior to consideration for discharge home. I would plan to wean her prednisone by 10 mg every 3 days, starting at a 40 mg dose. She should then follow-up in the pulmonary medicine clinic in 2 weeks to ensure stability. 2. History of depression/anxiety/tobacco dependency/hyperlipidemia Complicates care, management, recovery and prognosis. Continue home medications as indicated. Tobacco cessation counseling was provided. This note was generated with [employer] dictation software. It may contain incorrect words, spelling, and punctuation that were not noted in checking the note before signing. Subjective Subjective The patient was seen and examined at the bedside this morning. Events from the last 24 hours have been reviewed. The patient is currently afebrile, hemodynamically stable and maintaining appropriate oxygen saturations on 2 L/min via nasal cannula. The patient's family is present at the bedside. The patient reported that she feels better today than yesterday from a breathing perspective. Objective Data Objective Data The patient's most recent lab work, culture data and imaging studies have all been personally reviewed. Vital Signs: Vital Signs Temp Pulse Resp BP Pulse Ox O2 Del Method O2 Flow Rate 97.6 F L 87 16 118/90 H 100 Nasal Cannula 2 09/01/22 10:49 09/01/22 10:49 09/01/22 10:49 09/01/22 10:49 09/01/22 10:49 09/01/22 10:49 09/01/22 10:49 FiO2 30 08/30/22 06:00 Oxygen Flow Rate (L/min) 2 Oxygen Delivery Method Nasal Cannula Weight: 100 lb 4.965 oz Body Mass Index (BMI) 18.3 Intake & Output: Intake and Output for Last 24 Hours 08/30/22 08/31/22 09/01/22 23:59 23:59 23:59 Intake Total 1178.33 / 1178.33 3223.33 / 3223.33 Output Total 450 / 450 500 / 850 650 / 650 Balance 728.33 / 728.33 2723.33 / 2373.33 -650 / -650 Medical Nutrition Assessment Dietitian: Malnutrition Criteria Met Start: 08/30/22 09:30 Freq: Status: Active Protocol: Document 08/30/22 09:31 (Rec: 08/30/22 09:31 AG [id number]) Nutrition Malnutrition Evidence of Malnutrition Exists Yes Malnutrition (severe): Chronic Evidenced By Suboptimal Energy Intake ( Severe),Physical Changes ( Severe) Clinical Problem Chronic Disease or Condition Related Malnutrition Etiology severe, chronic malnutrition related to inadequate energy intake w/ increased energy needs d/t COPD Signs/Symptoms as evidenced by estimated PO intake meeting <75% of estimated energy needs >3 months; Severe muscle wasting/ fat loss evident per physical exam in orbital, clavicle, acromion, and temporal areas; BMI 18.1 Status Active Problem Recommendation Dietitian Recommendations/Changes continue regular diet given evidence of malnutrition; will add 120mL ensure clear 4x/day w/ medpass and magic cup BID w/ lunch and dinner for additional nutrition if consumed. Lab / Micro Data Attestation: I reviewed the patient's lab results. Result Diagrams: 09/01/22 04:48 09/01/22 04:48 Labs: Laboratory Results - last 24 hr 09/01/22 04:48: WBC 13.4 H, RBC 3.55 L, Hgb 11.0 L, Hct 32.5 L, MCV 91.5, MCH 31.0, MCHC 33.8, RDW Std Deviation 45.4 H, RDW Coeff of [place] 13.3, Plt Count 297, MPV 9.4, Immature Gran % (Auto) 0.900, Neut % (Auto) 88.8 H, Lymph % (Auto) 4.9 L, [place] % (Auto) 5.2, Eos % (Auto) 0.1, Baso % (Auto) 0.1, Absolute Neuts (auto) 11.9 H, Absolute Lymphs (auto) 0.66 L, Nucleated RBC % 0 09/01/22 04:48: Sodium 141, Potassium 3.8, Chloride 109 H, Carbon Dioxide 27.0, Anion Gap 5, BUN 18, Creatinine 0.53 L, Estim Creat Clear Calc 30.62, Est GFR (MDRD) Af Amer 141, Est GFR (MDRD) Non-Af 117, BUN/Creatinine Ratio 33.9 H, Glucose 135 H, Calcium 8.3 L, Total Bilirubin 0.30, AST 57 H, ALT 64 H, Alkaline Phosphatase 57, Total Protein 5.5 L, Albumin 2.7 L, Globulin 2.8, Albumin/Globulin Ratio 1.0 Micro: Microbiology 08/29/22 10:55 Blood Culture (Wb) - Anticubital Left Blood Culture - Preliminary No growth in 48 hours. 08/29/22 15:15 Mucosa - Nasopharyngeal Respiratory Panel (PCR) - Final 08/29/22 11:20 Nasal Secretion SARS-CoV-2 & FLU Antigen (Rapid) - Final Physical Exam Const alert, oriented x3 and no apparent distress General Appearance: cooperative HEENT normocephalic, head/scalp atraumatic and moist oral mucous membranes Eyes PERRL, EOMs intact bilaterally and conjunctivae normal Neck supple General: trachea midline Chest inspection of chest normal Resp normal respiratory effort and no use of accessory muscles Effort and Inspection: able to speak in complete sentences Auscultation: diminished lung sounds; Negative for rales, rhonchi or wheezes Cardio regular rate and regular rhythm GI normal to inspection, nondistended, normoactive bowel sounds Extremity no clubbing, cyanosis or edema Skin no rashes or lesions noted Neuro oriented x3, CN's II-XII intact bilaterally and moves all extremities Psych cooperative and affect normal Charges/Coding Visit Charges Inpatient E&M: 93216 Subs Hosp L2
--- NOTE | 2022-09-01 14:18 | PCM.DC.SUM ---
Providers Date of Admission: 08/29/22 Primary Care Physician: DOTTY De La Rosa Consultations 08/29/22 15:04 Consult: Otr Truck Driver / Pulmonary Medicine Routine Consulting Provider: Genaro Ortega Reason for Consult: COPD Exacerbation, respiratory failure EMERGENT Consult: No MD Notified: Yes Date Notified: 08/29/22 Time Notified: 12:50 Method of Notification: Text Reason For Visit: RESPIRATORY FAILURE, COPD EXACERBATION Diagnosis Discharge Diagnosis (1) Acute exacerbation of chronic obstructive pulmonary disease: Status: Chronic Code(s): J44.1 - Chronic obstructive pulmonary disease with (acute) exacerbation Plan #Acute respiratory distress with acute hypoxia secondary to acute exacerbation of chronic COPD -No infiltrate on chest x-ray -Respiratory work-up otherwise negative, unclear exacerbating factor -Continue bronchodilators and IV steroids -Wean O2 as tolerated -We will need prednisone taper on discharge and follow-up with pulmonology in 2 weeks #Hypotension -Chronically runs low however systolic started going to the 70s and initially was transferred to the ICU and maintained on BiPAP -She was able to be de-escalated to nasal cannula and sent back to floor -Presently on fluids -BP seems to have improved overnight -Can consider echocardiogram if further problems arise -Last echo 08/2018 with EF of 60% and no diastolic dysfunction noted #Tobacco use -Advise cessation #DVT ppx: Lovenox subcu Nano Oliva MD Time spent in the patient's overall evaluation,decision-making process, review of diagnostic data, adjustment of management, discussion with other providers, nursing nursing and ancillary staff involved in patient's care documentation, 30 minutes Medications at Discharge Home Medications coenzyme Q10 200 mg capsule 200 mg PO DAILY supplement 07/31/18 cholecalciferol (vitamin D3) 50 mcg (2,000 unit) capsule 2,000 unit PO DAILY vitamin 08/01/18 tiotropium 2.5 mcg-olodaterol 2.5 mcg/actuation mist for inhalation (Stiolto Respimat) 2 inh inhalation DAILY #4 grams 03/16/22 cetirizine 10 mg capsule (Zyrtec) 10 mg PO DAILY #30 caps 09/01/22 ipratropium 0.5 mg-albuterol 3 mg (2.5 mg base)/3 mL nebulization soln 3 ml inhalation TID PRN shortness of breath or wheezing 30 days #180 mL 09/01/22 prednisone 20 mg tablet See Taper PO BREAKFAST #15 tabs 09/01/22 Medical Records Data Medical Nutrition Assessment Dietitian: Malnutrition Criteria Met Start: 08/30/22 09:30 Freq: Status: Active Protocol: Document 08/30/22 09:31 AG (Rec: 08/30/22 09:31 AG [id number]) Nutrition Malnutrition Evidence of Malnutrition Exists Yes Malnutrition (severe): Chronic Evidenced By Suboptimal Energy Intake ( Severe),Physical Changes ( Severe) Clinical Problem Chronic Disease or Condition Related Malnutrition Etiology severe, chronic malnutrition related to inadequate energy intake w/ increased energy needs d/t COPD Signs/Symptoms as evidenced by estimated PO intake meeting <75% of estimated energy needs >3 months; Severe muscle wasting/ fat loss evident per physical exam in orbital, clavicle, acromion, and temporal areas; BMI 18.1 Status Active Problem Recommendation Dietitian Recommendations/Changes continue regular diet given evidence of malnutrition; will add 120mL ensure clear 4x/day w/ medpass and magic cup BID w/ lunch and dinner for additional nutrition if consumed. Weight / BMI Weight Weight: 45.5 kg Body Mass Index (BMI) 18.3 ABG / Lab / Microbiology Data Result Diagrams: 09/01/22 04:48 09/01/22 04:48 Laboratory: Laboratory Results - last 24 hr 09/01/22 04:48: WBC 13.4 H, RBC 3.55 L, Hgb 11.0 L, Hct 32.5 L, MCV 91.5, MCH 31.0, MCHC 33.8, RDW Std Deviation 45.4 H, RDW Coeff of Wayne 13.3, Plt Count 297, MPV 9.4, Immature Gran % (Auto) 0.900, Neut % (Auto) 88.8 H, Lymph % (Auto) 4.9 L, Wise % (Auto) 5.2, Eos % (Auto) 0.1, Baso % (Auto) 0.1, Absolute Neuts (auto) 11.9 H, Absolute Lymphs (auto) 0.66 L, Nucleated RBC % 0 09/01/22 04:48: Sodium 141, Potassium 3.8, Chloride 109 H, Carbon Dioxide 27.0, Anion Gap 5, BUN 18, Creatinine 0.53 L, Estim Creat Clear Calc 30.62, Est GFR (MDRD) Af Amer 141, Est GFR (MDRD) Non-Af 117, BUN/Creatinine Ratio 33.9 H, Glucose 135 H, Calcium 8.3 L, Total Bilirubin 0.30, AST 57 H, ALT 64 H, Alkaline Phosphatase 57, Total Protein 5.5 L, Albumin 2.7 L, Globulin 2.8, Albumin/Globulin Ratio 1.0 Microbiology: Microbiology 08/29/22 10:55 Blood Culture (Wb) - Anticubital Left Blood Culture - Preliminary No growth in 48 hours. 08/29/22 15:15 Mucosa - Nasopharyngeal Respiratory Panel (PCR) - Final 08/29/22 11:20 Nasal Secretion SARS-CoV-2 & FLU Antigen (Rapid) - Final D/C Instructions Discharge Diet: No restrictions Discharge Plan Admission Admit Date/Time: 08/29/22 12:25 Primary Reason for Your Visit: Shortness of breath Attending Provider: Naon Oliva Primary Care Provider: Cinda Moura Consulting Providers: Genaro Ortega ; Jannet Tubbs Instructions Patient Instructions: COPD: Wheezing and Chest Tightness, Discharge Instructions: COPD, COPD: Using Inhalers, ED Inhaler Use Additional Instructions / Restrictions: DISCHARGE INSTRUCTIONS PLEASE READ *Please take this with you to your next doctors appointment* -You will be discharged on a prednisone taper: -40mg daily x3 days -30mg daily x3 days -20mg daily x3 days -10mg daily x3 days -You will be discharged with prescription for nebulizer treatments, if any questions please contact your dividend deposit entry clerk's office -Please follow-up with pulmonology upon discharge in 2 weeks. Please call their office to schedule hospital follow-up appointment upon discharge. -Would recommend lab work (CMP) to check your potassium and liver function in 2 to 3 days through your primary care physician's office. Please call their office upon discharge to obtain order for lab work. -It is listed that you are on 325 mg of aspirin and your home medication list, would advise decreasing this to 81 mg if needed, this can be discussed with prescribing physician upon discharge -Please call your primary care provider's office upon discharge to schedule a hospital follow up within 1 week. -For any concerning signs or symptoms please call 911 or proceed to the nearest emergency department Discharge Orders/Prescriptions Prescriptions: New prednisone 20 mg tablet See Taper PO BREAKFAST Qty: 15 0RF Taper: Prednisone Taper 40 mg WITH BREAKFAST for 3 Days and 0 Hour 30 mg WITH BREAKFAST for 3 Days and 0 Hour 20 mg WITH BREAKFAST for 3 Days and 0 Hour 10 mg WITH BREAKFAST for 3 Days and 0 Hour ipratropium-albuterol 0.5 mg-3 mg(2.5 mg base)/3 mL Solution For Nebulization 3 ml inhalation TID PRN (Reason: shortness of breath or wheezing) 30 Days Qty: 180 0RF Zyrtec 10 mg capsule 10 mg PO DAILY Qty: 30 0RF Continued cholecalciferol (vitamin D3) 2,000 unit capsule 2,000 unit PO DAILY coenzyme Q10 200 mg capsule 200 mg PO DAILY Stiolto Respimat 2.5-2.5 mcg/actuation mist 2 inh inhalation DAILY Qty: 4 11RF Discontinued aspirin 325 mg tablet 325 mg PO DAILY Referrals / Follow Up: Genaro Ortega DO [Med Staff - Active Staff] - See Referral Note (Please follow-up with pulmonology upon discharge. Please call their office to schedule hospital follow-up appointment upon discharge.) Cinda Moura, [employer]C [Primary Care Provider] - Sahra Delacruz NP, [employer] [Non-Staff] - Disposition Disposition (needs filled in before D/C Order can be placed): Home Health Service
--- NOTE | 2022-09-01 15:14 | PHA.DC.MC ---
Pharmacy Service has performed discharge medication reconciliation and counseling for this patient. The patient was counseled on the following discharge medications and changes in medications for homegoing were reviewed. 1. PREDNISONE 2. DUONEB The Reason for Use, instructions for use, and potential side effects were reviewed for all new medications. The patient's questions regarding all of their medications were answered. The patient was able to verbally demonstrate an understanding of their discharge medications. Home Medications coenzyme Q10 200 mg capsule 200 mg PO DAILY supplement 07/31/18 cholecalciferol (vitamin D3) 50 mcg (2,000 unit) capsule 2,000 unit PO DAILY vitamin 08/01/18 tiotropium 2.5 mcg-olodaterol 2.5 mcg/actuation mist for inhalation (Stiolto Respimat) 2 inh inhalation DAILY #4 grams 03/16/22 cetirizine 10 mg capsule (Zyrtec) 10 mg PO DAILY #30 caps 09/01/22 ipratropium 0.5 mg-albuterol 3 mg (2.5 mg base)/3 mL nebulization soln 3 ml inhalation TID PRN shortness of breath or wheezing 30 days #180 mL 09/01/22 prednisone 20 mg tablet See Taper PO BREAKFAST #15 tabs 09/01/22 The patient's discharge medication list was reviewed for discrepancies and discrepancies were resolved. Counselled by Seth Evans, HarriettD candidate
--- NOTE | 2022-09-01 15:27 | CASEMGMT ---
Discharge Planning HH referrals sent to [facility] via [facility]. Mariela Hdez
--- NOTE | 2022-09-01 15:50 | ECHOD_ITS ---
Reason For Study: DYSPNEA Procedure This was a 2D Doppler, Color Flow transthoracic echocardiogram. Exam performed portable in patient room. Left Ventricle Normal size and thickness. The left ventricular ejection fraction is 65 %. Normal diastology for age. Right Ventricle Normal right ventricle. Atria The left and right atria are normal. Mitral Valve Trivial mitral valve insufficiency. Tricuspid Valve Mild tricuspid valve insufficiency. Right ventricular systolic pressure estimated to be 36 mmHg. Aortic Valve Normal aortic valve. Pulmonic Valve The pulmonic valve is not well visualized. Great Vessels Normal sized aortic root. Pericardium/Pleural No pericardial effusion. MMode/2D Measurements & Calculations LVIDd: 3.8 cm IVSd: 0.82 cm Ao root diam: 2.9 cm LVIDs: 2.9 cm LVPWd: 1.0 cm FS: 24.2 % LAV(MOD-bp): 44.0 ml LVAd ap4: 19.5 cm2 LVAd ap2: 20.2 cm2 LAV(MOD-bp) Indexed: 31.2 ml/m2 LVLd ap4: 6.7 cm LVLd ap2: 6.6 cm LAV(MOD-sp2): 44.5 ml EDV(MOD-sp4): 46.8 ml EDV(MOD-sp2): 54.4 ml LAV(MOD-sp4): 32.8 ml EDV(sp4-el): 48.0 ml EDV(sp2-el): 52.7 ml LVAs ap4: 10.4 cm2 LVAs ap2: 10.1 cm2 LVLs ap4: 5.1 cm LVLs ap2: 5.1 cm ESV(MOD-sp4): 19.5 ml ESV(MOD-sp2): 19.1 ml ESV(sp4-el): 18.0 ml ESV(sp2-el): 16.9 ml EF(MOD-sp4): 58.4 % EF(MOD-sp2): 64.9 % EF(sp4-el): 62.5 % SV(MOD-sp4): 27.3 ml SV(MOD-sp2): 35.3 ml SV(sp4-el): 30.0 ml LA dimension(2D): 3.1 cm LA A4 area: 12.1 cm2 RA A4 area: 9.0 cm2 Time Measurements MV dec time: 0.23 sec Doppler Measurements & Calculations MV E max tavo: 68.2 cm/sec Lat Peak E' Tavo: 9.0 cm/sec Med Peak E' Tavo: 8.9 cm/sec MV A max tavo: 81.0 cm/sec E/E' lat: 7.6 E/E' med: 7.7 MV E/A: 0.84 MV V2 max: 74.7 cm/sec MV dec slope: 294.8 cm/sec2 Ao V2 max: 107.1 cm/sec MV max P.2 mmHg Ao max P.6 mmHg MV V2 mean: 46.6 cm/sec Ao V2 mean: 73.4 cm/sec MV mean P.99 mmHg Ao mean P.4 mmHg MV V2 VTI: 22.0 cm Ao V2 VTI: 22.1 cm AV (velocity ratio): 0.69 LV V1 max: 86.1 cm/sec PA V2 max: 86.2 cm/sec TR max tavo: 279.2 cm/sec LV V1 max P.0 mmHg PA V2 mean: 60.3 cm/sec TR max P.2 mmHg LV V1 mean P.5 mmHg LV V1 mean: 55.9 cm/sec LV V1 VTI: 15.3 cm ECHO/Echo Complete Interpretation Summary The left ventricular ejection fraction is 65 %. Mild tricuspid valve insufficiency. Right ventricular systolic pressure estimated to be 36 mmHg. Ordering Physician: Nano Oliva Referring Physician: KYLAH HAM Performed By: Corie Duff RCS
--- NOTE | 2022-09-01 15:53 | PN.HOSP_ITS ---
Reason for Visit Reason for Visit: Diagnoses Chronic obstructive pulmonary disease with (acute) exacerbation (08/29/22) Respiratory failure, unspecified, unspecified whether with hypoxia or hypercapnia (08/29/22) Subjective Subjective Patient has been feeling much better today laying in bed however when she got up to ambulate she was significantly short of breath after several feet and oxygen saturation dropped to 78% on 8 L with a good pleth Objective Data Objective Data Vital Signs: Vital Signs Temp Pulse Resp BP Pulse Ox O2 Del Method O2 Flow Rate 97.9 F 95 18 101/83 H 87 Nasal Cannula 0 09/01/22 15:18 09/01/22 15:18 09/01/22 15:18 09/01/22 15:18 09/01/22 15:43 09/01/22 15:18 09/01/22 15:43 FiO2 30 08/30/22 06:00 Oxygen Flow Rate (L/min) [ 8 AMBULATING with Oxygen #3] Oxygen Flow Rate (L/min) [ 6 AMBULATING with Oxygen #2] Oxygen Flow Rate (L/min) [ 4 AMBULATING with Oxygen #1] Oxygen Flow Rate (L/min) [At 0 REST on Room Air] Oxygen Flow Rate (L/min) 2 Oxygen Delivery Method Nasal Cannula Weight: 45.5 kg Body Mass Index (BMI) 18.3 Intake & Output: Intake and Output for Last 24 Hours 08/30/22 08/31/22 09/01/22 23:59 23:59 23:59 Intake Total 1178.33 / 1178.33 3223.33 / 3223.33 Output Total 450 / 450 500 / 850 650 / 650 Balance 728.33 / 728.33 2723.33 / 2373.33 -650 / -650 Medical Nutrition Assessment Dietitian: Malnutrition Criteria Met Start: 08/30/22 09:30 Freq: Status: Active Protocol: Document 08/30/22 09:31 GROVER (Rec: 08/30/22 09:31 AG [id number]) Nutrition Malnutrition Evidence of Malnutrition Exists Yes Malnutrition (severe): Chronic Evidenced By Suboptimal Energy Intake ( Severe),Physical Changes ( Severe) Clinical Problem Chronic Disease or Condition Related Malnutrition Etiology severe, chronic malnutrition related to inadequate energy intake w/ increased energy needs d/t COPD Signs/Symptoms as evidenced by estimated PO intake meeting <75% of estimated energy needs >3 months; Severe muscle wasting/ fat loss evident per physical exam in orbital, clavicle, acromion, and temporal areas; BMI 18.1 Status Active Problem Recommendation Dietitian Recommendations/Changes continue regular diet given evidence of malnutrition; will add 120mL ensure clear 4x/day w/ medpass and magic cup BID w/ lunch and dinner for additional nutrition if consumed. Lab / Micro Data Result Diagrams: 09/01/22 04:48 09/01/22 04:48 Labs: Laboratory Results - last 24 hr 09/01/22 04:48: WBC 13.4 H, RBC 3.55 L, Hgb 11.0 L, Hct 32.5 L, MCV 91.5, MCH 31.0, MCHC 33.8, RDW Std Deviation 45.4 H, RDW Coeff of Wayne 13.3, Plt Count 297, MPV 9.4, Immature Gran % (Auto) 0.900, Neut % (Auto) 88.8 H, Lymph % (Auto) 4.9 L, [place] % (Auto) 5.2, Eos % (Auto) 0.1, Baso % (Auto) 0.1, Absolute Neuts (auto) 11.9 H, Absolute Lymphs (auto) 0.66 L, Nucleated RBC % 0 09/01/22 04:48: Sodium 141, Potassium 3.8, Chloride 109 H, Carbon Dioxide 27.0, Anion Gap 5, BUN 18, Creatinine 0.53 L, Estim Creat Clear Calc 30.62, Est GFR (MDRD) Af Amer 141, Est GFR (MDRD) Non-Af 117, BUN/Creatinine Ratio 33.9 H, Glucose 135 H, Calcium 8.3 L, Total Bilirubin 0.30, AST 57 H, ALT 64 H, Alkaline Phosphatase 57, Total Protein 5.5 L, Albumin 2.7 L, Globulin 2.8, Albumin/Globulin Ratio 1.0 Micro: Microbiology 08/29/22 10:55 Blood Culture (Wb) - Anticubital Left Blood Culture - Preliminary No growth in 48 hours. 08/29/22 15:15 Mucosa - Nasopharyngeal Respiratory Panel (PCR) - Final 08/29/22 11:20 Nasal Secretion SARS-CoV-2 & FLU Antigen (Rapid) - Final Physical Exam Narrative General: Alert, oriented, thin HEENT: Atraumatic, normocephalic Eyes: Anicteric, normal conjunctiva, extraocular movements grossly intact Neck: Supple Respiratory: Lungs diminished but somewhat improved today at rest Cardiovascular: Regular rate and rhythm GI: Soft, nontender, nondistended Extremities: No edema Musculoskeletal: Moving all extremities Neuro: No overt focal neurological deficits Skin: No rashes appreciated Psych: Cooperative, appears less anxious Assessment & Plan Assessment/Plan (1) Acute exacerbation of chronic obstructive pulmonary disease: (2) Respiratory failure: PLAN: Plan #Acute respiratory distress with acute hypoxic respiratory failure secondary to acute exacerbation of chronic COPD -Not on home O2 -No infiltrate on chest x-ray -Respiratory work-up otherwise negative and negative respiratory panel and COVID, unclear exacerbating factor -Continue bronchodilators and IV steroids -Wean O2 as tolerated -We will need prednisone taper on discharge and follow-up with pulmonology in 2 weeks -09/01: Has been transitioned to oral prednisone in preparation for discharge home and she was feeling much better at rest. Had discussed with pulmonology and they recommended a steroid taper and walk test to assess for needs for home O2. Discharge complete just pending walk test however when she was ambulated she only made it several feet before becoming severely symptomatic and was 78% on 8 L and was moved back to the bed with a very slow recovery and continued high O2 requirements. She had been saturating well on room air with max 2 L over the past day. Discussed with pulmonology. Given her severe symptoms with good pleth on walk test will order echo and discharge has been canceled. On previous echo in 2019 they cannot exclude PDA. Discussed with patient and family at bedside and patient did not remember being told this before but family member endorsed that this was known. Will assess for any changes from previous overall or any indication as to underlying process. #Hx COPD -Follows w/ [facility] -Last PFTs 01/10/19: Irreversible moderate large airways obstructive ventilatory defect with associated air trapping and mild reduction in diffusing capacity. -More comfortable at rest however significantly desaturates on ambulation -Pulmonary exercise test 08/18/2020 with no need for O2. -Has not been wheezing and given patient comfortable at rest do not think steroids need to be really escalated unless this is recommended by pulmonology, continue nebs. Assess for other underlying causes of her shortness of breath and oxygen desaturation -Has not been tachypneic nor tachycardic and low suspicion for PE but can always consider CTA if any worsening or no other underlying cause identified. Had a D- dimer of 0.72 from ED labs but given presentation, age, comorbidities feel this is nonspecific. Again low threshold to obtain further imaging if indicated #Hypotension -Chronically runs low however systolic started going to the 70s and initially was transferred to the ICU and maintained on BiPAP -She was able to be de-escalated to nasal cannula and sent back to floor -Presently on fluids -BP seems to have improved overnight -Can consider echocardiogram if further problems arise -Last echo 08/2018 with EF of 60% and no diastolic dysfunction noted -09/01: Has been somewhat more stable, continue to monitor. Echo as above #Tobacco use -Advise cessation #DVT ppx: Lovenox subcu Nano Oliva MD Time spent in the patient's overall evaluation,decision-making process, review of diagnostic data, adjustment of management, discussion with other providers, nursing nursing and ancillary staff involved in patient's care documentation, 40 minutes Charges/Coding Visit Charges Inpatient E&M: 13771 Subs Hosp L3
--- NOTE | 2022-09-01 16:00 | CASEMGMT ---
RN CM in to discuss discharge planning with patient. Patient would like [facility]. A list of [facility] providers including quality and resource use data and consistent with the patient?s preferred geographical region, medical needs, and insurance network were provided from the [employer] Guide. Patient prefers [facility]. Patient states that she will need BSC, walker and/or rollator, nebulizer, and oxygen at home. RN KAMAR obtained scripts. Referral was sent to [facility] and they are not able to accept the patient. RN KAMAR updated patient, reviewed list and prefers [facility]. Discharge production planning manager updated. RN KAMAR called [employer], preferred DME for patient, no rollators available but does have BSC and walker. RN KAMAR called [facility] regarding Rollator, instock but will take 1-2 days to process through insurance. RN KAMAR updated patient and requested to call daughter Kayla. RN KAMAR called Kayla and she would prefer [facility] for patient, script for rollator provided to patient to fill at later time. RN KAMAR updated Taniya at [facility]. RN CM notified of discharge being cancelled due to increased oxygen demands. [facility] and can arrange for family to pick up truck driver at branch today before closing. RN CM to patient's room, daughter at bedside and can pick up truck driver BSC and walker, referral for BSC and walker sent to [facility] for pickup. RN KAMAR called Manuela at [facility] and they are able to accept the patient. RN CM updated the patient and daughter. Patient and daughter had no further questions or concerns at this time. CM will continue to follow this patient and plan for a safe discharge.
[2022-09-01] MEDS: MELATONIN 3 MG TABLET PO (20:53)
--- NOTE | 2022-09-01 23:39 | CPS ---
Attempted bipap at 23:03 Patient refused and was unable to tolerate. On 2L 97%
[2022-09-02] VITALS (13 sets, daily range): BP systolic 102–140; BP diastolic 67–84; PULSE 75–97; RESP 16–18; TEMP 36.5–36.9; O2SAT 90–100; BMI 18.0
--- NOTE | 2022-09-02 05:55 | PN.CC_ITS ---
Assessment & Plan Assessment/Plan (1) Acute exacerbation of chronic obstructive pulmonary disease: PLAN: Plan RECOMMENDATIONS: 1. Continue scheduled bronchodilators and IV steroids. Anticipate need for prednisone taper at discharge. 2. Encourage incentive spirometer use and mobilize patient as tolerated. 3. Agree with obtaining echocardiogram with bubble contrast to evaluate for shunt. 4. Continue appropriate DVT prophylaxis. 5. Obtain CTA chest to rule out PE. IMPRESSIONS: 1. Acute hypoxemic respiratory failure secondary to COPD with exacerbation Unclear precipitating etiology for the patient's COPD. However, this may have been precipitated by a upper respiratory infection, given the patient's sinus related complaints and postnasal drip. Given that she remains afebrile without any focal infiltrate on chest imaging, I agree with holding antimicrobials. It is reasonable to continue scheduled bronchodilators and IV steroids. The patient did respond symptomatically to the use of BiPAP. When preparing for dis charge, the patient was noted to become significantly hypoxemic with exertion. Therefore, I agree with obtaining an echocardiogram with bubble contrast to evaluate for the presence of cardiac level shunt. Lastly, a CTA chest will be obtained to evaluate for any parenchymal lung abnormalities or pulmonary embolism. 2. History of depression/anxiety/tobacco dependency/hyperlipidemia Complicates care, management, recovery and prognosis. Continue home medications as indicated. Tobacco cessation counseling was provided. This note was generated with [employer] dictation software. It may contain incorrect words, spelling, and punctuation that were not noted in checking the note before signing. Subjective Subjective The patient was seen and examined at the bedside this morning. Events from the last 24 hours have been reviewed. The patient is currently afebrile, hemodynamically stable and maintaining appropriate oxygen saturations on 2 L/min via nasal cannula. The patient was being prepared to be discharged home yesterday. However, when ambulating in the hallway, the patient was noted to desaturate to 78% even on 8 L/min of supplemental oxygen. Objective Data Objective Data The patient's most recent lab work, culture data and imaging studies have all been personally reviewed. Vital Signs: Vital Signs Temp Pulse Resp BP Pulse Ox O2 Del Method O2 Flow Rate 97.7 F L 97 16 104/84 H 99 Nasal Cannula 2 09/02/22 02:00 09/02/22 02:00 09/02/22 02:00 09/02/22 02:00 09/02/22 02:00 09/02/22 03:12 09/02/22 03:12 FiO2 30 08/30/22 06:00 Oxygen Flow Rate (L/min) [ 8 AMBULATING with Oxygen #3] Oxygen Flow Rate (L/min) [ 6 AMBULATING with Oxygen #2] Oxygen Flow Rate (L/min) [ 4 AMBULATING with Oxygen #1] Oxygen Flow Rate (L/min) [At 0 REST on Room Air] Oxygen Flow Rate (L/min) 2 Oxygen Delivery Method Nasal Cannula Weight: 98 lb 12.273 oz Body Mass Index (BMI) 18.0 Intake & Output: Intake and Output for Last 24 Hours 08/31/22 09/01/22 09/02/22 23:59 23:59 23:59 Intake Total 3223.33 / 3223.33 1120 / 1120 Output Total 500 / 850 980 / 980 Balance 2723.33 / 2373.33 140 / 140 Medical Nutrition Assessment Dietitian: Malnutrition Criteria Met Start: 08/30/22 09:30 Freq: Status: Active Protocol: Document 08/30/22 09:31 (Rec: 08/30/22 09:31 [id number]) Nutrition Malnutrition Evidence of Malnutrition Exists Yes Malnutrition (severe): Chronic Evidenced By Suboptimal Energy Intake ( Severe),Physical Changes ( Severe) Clinical Problem Chronic Disease or Condition Related Malnutrition Etiology severe, chronic malnutrition related to inadequate energy intake w/ increased energy needs d/t COPD Signs/Symptoms as evidenced by estimated PO intake meeting <75% of estimated energy needs >3 months; Severe muscle wasting/ fat loss evident per physical exam in orbital, clavicle, acromion, and temporal areas; BMI 18.1 Status Active Problem Recommendation Dietitian Recommendations/Changes continue regular diet given evidence of malnutrition; will add 120mL ensure clear 4x/day w/ medpass and magic cup BID w/ lunch and dinner for additional nutrition if consumed. Lab / Micro Data Attestation: I reviewed the patient's lab results. Result Diagrams: 09/02/22 05:37 09/01/22 04:48 Labs: Laboratory Results - last 24 hr 09/01/22 04:48: WBC 13.4 H, RBC 3.55 L, Hgb 11.0 L, Hct 32.5 L, MCV 91.5, MCH 31.0, MCHC 33.8, RDW Std Deviation 45.4 H, RDW Coeff of Wayne 13.3, Plt Count 297, MPV 9.4, Immature Gran % (Auto) 0.900, Neut % (Auto) 88.8 H, Lymph % (Auto) 4.9 L, [place] % (Auto) 5.2, Eos % (Auto) 0.1, Baso % (Auto) 0.1, Absolute Neuts (auto) 11.9 H, Absolute Lymphs (auto) 0.66 L, Nucleated RBC % 0 09/01/22 04:48: Sodium 141, Potassium 3.8, Chloride 109 H, Carbon Dioxide 27.0, Anion Gap 5, BUN 18, Creatinine 0.53 L, Estim Creat Clear Calc 30.62, Est GFR (MDRD) Af Amer 141, Est GFR (MDRD) Non-Af 117, BUN/Creatinine Ratio 33.9 H, Glucose 135 H, Calcium 8.3 L, Total Bilirubin 0.30, AST 57 H, ALT 64 H, Alkaline Phosphatase 57, Total Protein 5.5 L, Albumin 2.7 L, Globulin 2.8, Albumin/Globulin Ratio 1.0 Micro: Microbiology 08/29/22 10:55 Blood Culture (Wb) - Anticubital Left Blood Culture - Preliminary No growth in 48 hours. 08/29/22 15:15 Mucosa - Nasopharyngeal Respiratory Panel (PCR) - Final 08/29/22 11:20 Nasal Secretion SARS-CoV-2 & FLU Antigen (Rapid) - Final Physical Exam Const alert, oriented x3 and no apparent distress General Appearance: cooperative HEENT normocephalic, head/scalp atraumatic and moist oral mucous membranes Eyes PERRL, EOMs intact bilaterally and conjunctivae normal Neck supple General: trachea midline Chest inspection of chest normal Resp normal respiratory effort and no use of accessory muscles Effort and Inspection: able to speak in complete sentences Auscultation: diminished lung sounds; Negative for rales, rhonchi or wheezes Cardio regular rate and regular rhythm GI normal to inspection, nondistended, normoactive bowel sounds Extremity no clubbing, cyanosis or edema Skin no rashes or lesions noted Neuro oriented x3, CN's II-XII intact bilaterally and moves all extremities Psych cooperative and affect normal Charges/Coding Visit Charges Inpatient E&M: 49783 Subs Hosp L2
[2022-09-02 06:35] LABS: Absolute Lymphocyte Count 1.58 X10^3/uL (0.83-4.51); Absolute Neutrophil Count 8.4 X10^3/uL (2.0-7.7); Basophil# 0.02 X10^3/uL; Basophil% 0.2 % (0-1); Eosinophil# 0.01 X10^3/uL; Eosinophils% 0.1 % (0-5); Hematocrit 36.5 % (37-47); Hemoglobin 12.1 g/dL (12.0-15.0); Lymphocyte # 1.58 X10^3/ul (0.83-4.51); Lymphocyte % 14.1 % (19-41); Mean Corp Hgb Conc 33.2 g/dL (32-36); Mean Corpuscular Hgb 30.3 pg (27.0-32.0); Mean Corpuscular Volume 91.3 fL (81-99); Mean Platelet Vol. 9.3 fl (6.2-12.0); Monocyte% 9.8 % (0-10); NRBC Flagged by Analyzer 0 % (0-5); Neutrophil # 8.37 X10^3/uL (2.7-7.7); Neutrophil % 74.6 % (47-70); Platelet Count 379 K/mm3 (150-450); RBC Distribution Width CV 13.4 % (11.6-14.6); RBC Distribution Width SD 45.1 fl (35.1-43.9); White Blood Count 11.2 K/mm3 (4.4-11.0)
--- NOTE | 2022-09-02 06:50 | CT_ITS ---
STUDY: CTA CHEST REASON FOR EXAM: Female, 82 years old. PE RADIATION DOSAGE (If Supplied By Facility): CTDIvol = ( 5.72 ) mGy, DLP = ( 132.39 ) mGycm TECHNIQUE: The examination was performed with the intravenous administration of IV 75mL Isovue-370. Post-processing of the angiographic images was performed, with multiplanar reformation and 3D reconstruction. Individualized dose optimization techniques were used for this CT. COMPARISON: FINDINGS: Normal enhancement of the main pulmonary artery and right and left pulmonary arteries. Normal enhancement of the bilateral peripheral pulmonary arteries. There is no demonstrated pulmonary embolism. Normal thoracic aorta and visualized great vessels. There is no demonstrated aortic dissection. There is moderate atherosclerotic vascular calcification of the aortic arch. Normal heart and pericardium. Small hiatal hernia. Other etiology cannot be excluded. Remainder of mediastinum normal. Normal hilar regions. Normal visualized trachea and bronchi. The lungs are well expanded. Moderate biapical pleural parenchymal fibrosis stable. Moderate centrilobular emphysema predominantly within the upper lobes. Mild bibasilar fibrosis stable. Normal pleura. Normal chest wall structures. Normal osseous structures. Normal visualized upper abdomen. Stable exam. CT/CTA Chest W/WO Contrast IMPRESSION: No demonstrated pulmonary embolism or arterial dissection. Moderate biapical pleural parenchymal fibrosis stable. Moderate centrilobular emphysema predominantly within the upper lobes. Mild bibasilar fibrosis stable. Moderate atherosclerotic vascular calcification aortic arch. Small hiatal hernia. Electronically Signed: Antonio Angeles MD, JENNIFER at 10:42 EDT ,
[2022-09-02 07:01] LABS: AST(SGOT) 41 U/L (15-37); Alanine Aminotransfer ALT/SGPT 73 U/L (13-56); Albumin, Serum 2.8 g/dL (3.2-5.0); Alkaline Phosphatase 61 U/L (45-117); Anion Gap 6 (5-15); BUN 19 mg/dL (7-18); BUN/Creat Ratio 37.5 RATIO (10-20); Calcium,Total 8.1 mg/dL (8.5-10.1); Chloride 108 mmol/L (98-107); Creatinine, Serum 0.51 mg/dL (0.55-1.02); EST Glomerular Filtration Rate 123 mL/min (>60); Est Glom Filt Rate - Afr Amer 149 mL/min (>60); Estimated Creatinine Clearance 30.15 ml/min; Globulin 2.8 g/dL (2.2-4.2); Glucose 100 mg/dL (74-106); Potassium 3.4 mmol/L (3.5-5.1); Protein, Total 5.6 g/dL (6.4-8.2); Sodium Level 143 mmol/L (136-145)
--- NOTE | 2022-09-02 07:18 | PCM.PN.HOSP ---
Reason for Visit Reason for Visit: Diagnoses Chronic obstructive pulmonary disease with (acute) exacerbation (08/29/22) Respiratory failure, unspecified, unspecified whether with hypoxia or hypercapnia (08/29/22) Subjective Subjective Patient resting in bed, appears comfortable while sitting but had significant desaturations yesterday when up moving around Objective Data Objective Data Vital Signs: Vital Signs Temp Pulse Resp BP Pulse Ox O2 Del Method O2 Flow Rate 97.7 F L 97 16 104/84 H 99 Nasal Cannula 2 09/02/22 02:00 09/02/22 02:00 09/02/22 02:00 09/02/22 02:00 09/02/22 02:00 09/02/22 03:12 09/02/22 03:12 FiO2 30 08/30/22 06:00 Oxygen Flow Rate (L/min) [ 8 AMBULATING with Oxygen #3] Oxygen Flow Rate (L/min) [ 6 AMBULATING with Oxygen #2] Oxygen Flow Rate (L/min) [ 4 AMBULATING with Oxygen #1] Oxygen Flow Rate (L/min) [At 0 REST on Room Air] Oxygen Flow Rate (L/min) 2 Oxygen Delivery Method Nasal Cannula Weight: 44.8 kg Body Mass Index (BMI) 18.0 Intake & Output: Intake and Output for Last 24 Hours 08/31/22 09/01/22 09/02/22 23:59 23:59 23:59 Intake Total 3223.33 / 3223.33 1120 / 1120 80 / 80 Output Total 500 / 850 980 / 980 Balance 2723.33 / 2373.33 140 / 140 80 / 80 Medical Nutrition Assessment Dietitian: Malnutrition Criteria Met Start: 08/30/22 09:30 Freq: Status: Active Protocol: Document 08/30/22 09:31 AG (Rec: 08/30/22 09:31 [id number]) Nutrition Malnutrition Evidence of Malnutrition Exists Yes Malnutrition (severe): Chronic Evidenced By Suboptimal Energy Intake ( Severe),Physical Changes ( Severe) Clinical Problem Chronic Disease or Condition Related Malnutrition Etiology severe, chronic malnutrition related to inadequate energy intake w/ increased energy needs d/t COPD Signs/Symptoms as evidenced by estimated PO intake meeting <75% of estimated energy needs >3 months; Severe muscle wasting/ fat loss evident per physical exam in orbital, clavicle, acromion, and temporal areas; BMI 18.1 Status Active Problem Recommendation Dietitian Recommendations/Changes continue regular diet given evidence of malnutrition; will add 120mL ensure clear 4x/day w/ medpass and magic cup BID w/ lunch and dinner for additional nutrition if consumed. Lab / Micro Data Result Diagrams: 09/02/22 05:37 09/02/22 05:37 Labs: Laboratory Results - last 24 hr 09/02/22 05:37: WBC 11.2 H, RBC 4.00 L, Hgb 12.1, Hct 36.5 L, MCV 91.3, MCH 30.3, MCHC 33.2, RDW Std Deviation 45.1 H, RDW Coeff of Wayne 13.4, Plt Count 379, MPV 9.3, Immature Gran % (Auto) 1.200 H, Neut % (Auto) 74.6 H, Lymph % (Auto) 14.1 L, [place] % (Auto) 9.8, Eos % (Auto) 0.1, Baso % (Auto) 0.2, Absolute Neuts (auto) 8.4 H, Absolute Lymphs (auto) 1.58, Nucleated RBC % 0 09/02/22 05:37: Sodium 143, Potassium 3.4 L, Chloride 108 H, Carbon Dioxide 29.0, Anion Gap 6, BUN 19 H, Creatinine 0.51 L, Estim Creat Clear Calc 30.15, Est GFR (MDRD) Af Amer 149, Est GFR (MDRD) Non-Af 123, BUN/Creatinine Ratio 37.5 H, Glucose 100, Calcium 8.1 L, Total Bilirubin 0.30, AST 41 H, ALT 73 H, Alkaline Phosphatase 61, Total Protein 5.6 L, Albumin 2.8 L, Globulin 2.8, Albumin/Globulin Ratio 1.0 Micro: Microbiology 08/29/22 10:55 Blood Culture (Wb) - Anticubital Left Blood Culture - Preliminary No growth in 48 hours. 08/29/22 15:15 Mucosa - Nasopharyngeal Respiratory Panel (PCR) - Final 08/29/22 11:20 Nasal Secretion SARS-CoV-2 & FLU Antigen (Rapid) - Final Physical Exam Narrative General: Alert, oriented, thin HEENT: Atraumatic, normocephalic Eyes: Anicteric, normal conjunctiva, extraocular movements grossly intact Neck: Supple Respiratory: Lungs diminished, no increased work of breathing while sitting in bed at this time Cardiovascular: Regular rate and rhythm GI: Soft, nontender, nondistended Extremities: No edema Musculoskeletal: Moving all extremities Neuro: No overt focal neurological deficits Skin: No rashes appreciated, very tanned skin Psych: Cooperative, appears less anxious Assessment & Plan Assessment/Plan (1) Acute exacerbation of chronic obstructive pulmonary disease: (2) Respiratory failure: PLAN: Plan #Acute respiratory distress with acute hypoxic respiratory failure secondary to acute exacerbation of chronic COPD -Not on home O2 -No infiltrate on chest x-ray -Respiratory work-up otherwise negative and negative respiratory panel and COVID, unclear exacerbating factor -Continue bronchodilators and IV steroids -Wean O2 as tolerated -We will need prednisone taper on discharge and follow-up with pulmonology in 2 weeks -09/01: Has been transitioned to oral prednisone in preparation for discharge home and she was feeling much better at rest. Had discussed with pulmonology and they recommended a steroid taper and walk test to assess for needs for home O2. Discharge complete just pending walk test however when she was ambulated she only made it several feet before becoming severely symptomatic and was 78% on 8 L and was moved back to the bed with a very slow recovery and continued high O2 requirements. She had been saturating well on room air with max 2 L over the past day. Discussed with pulmonology. Given her severe symptoms with good pleth on walk test will order echo and discharge has been canceled. On previous echo in 2019 they cannot exclude PDA. Discussed with patient and family at bedside and patient did not remember being told this before but family member endorsed that this was known. Will assess for any changes from previous overall or any indication as to underlying process. -09/02: Echo pending, CTA ordered by pulmonology, agree with CTA. Continue nebs, change back to IV steroids #Hx COPD -Follows w/ [facility] -Last PFTs 01/10/19: Irreversible moderate large airways obstructive ventilatory defect with associated air trapping and mild reduction in diffusing capacity. -More comfortable at rest however significantly desaturates on ambulation -Pulmonary exercise test 08/18/2020 with no need for O2. -Has not been wheezing and given patient comfortable at rest do not think steroids need to be really escalated unless this is recommended by pulmonology, continue nebs. Assess for other underlying causes of her shortness of breath and oxygen desaturation -Has not been tachypneic nor tachycardic and low suspicion for PE but can always consider CTA if any worsening or no other underlying cause identified. Had a D-dimer of 0.72 from ED labs but given presentation, age, comorbidities feel this is nonspecific. Again low threshold to obtain further imaging if indicated -09/02: As above #Hypotension -Chronically runs low however systolic started going to the 70s and initially was transferred to the ICU and maintained on BiPAP -She was able to be de-escalated to nasal cannula and sent back to floor -Presently on fluids -BP seems to have improved overnight -Can consider echocardiogram if further problems arise -Last echo 08/2018 with EF of 60% and no diastolic dysfunction noted -09/01: Has been somewhat more stable, continue to monitor. Echo as above #Tobacco use -Advise cessation #DVT ppx: Lovenox subcu Nano Oliva MD Time spent in the patient's overall evaluation,decision-making process, review of diagnostic data, adjustment of management, discussion with other providers, nursing nursing and ancillary staff involved in patient's care documentation, 40 minutes Charges/Coding Visit Charges Inpatient E&M: 88815 Subs Hosp L3
[2022-09-02] MEDS: Ipratropium/Albuterol Sulfate 3 ML AMPUL.NEB INHALATION ×3 (07:29→20:13)
[2022-09-02] MEDS: Methylprednisolone Sod Succ 40 MG/ML VIAL IV ×3 (09:38→21:40)
[2022-09-02] MEDS: Ensure Clear 120 ML Liquid PO ×2 (09:38→19:48)
[2022-09-02] MEDS: Enoxaparin 30 MG/0.3 ML Syringe SC (09:38)
[2022-09-02] MEDS: Aspirin 81 MG TAB.CHEW PO (09:38)
[2022-09-02] MEDS: 0.9% Saline Lock 10 ML Syringe IV ×3 (09:38→21:40)
[2022-09-02] MEDS: Potassium Chloride Oral Soln 20 MEQ/15 ML UDC PO (11:31)
[2022-09-02] MEDS: MELATONIN 3 MG TABLET PO (21:45)
[2022-09-03] VITALS (11 sets, daily range): BP systolic 90–158; BP diastolic 64–86; PULSE 76–89; RESP 16–18; TEMP 36.2–36.6; O2SAT 86–100; BMI 18.0
[2022-09-03] MEDS: Methylprednisolone Sod Succ 40 MG/ML VIAL IV (06:13)
[2022-09-03] MEDS: 0.9% Saline Lock 10 ML Syringe IV (06:13)
--- NOTE | 2022-09-03 06:39 | PN.CC_ITS ---
Assessment & Plan Assessment/Plan (1) Acute exacerbation of chronic obstructive pulmonary disease: PLAN: Plan RECOMMENDATIONS: 1. Continue scheduled bronchodilators and steroids. Anticipate need for prednisone taper at discharge. 2. Encourage incentive spirometer use and mobilize patient as tolerated. 3. Obtain limited echo with bubble study to evaluate for cardiac level shunt. 4. Continue appropriate DVT prophylaxis. 5. Repeat walking oximetry study today to reevaluate supplemental oxygen needs. IMPRESSIONS: 1. Acute hypoxemic respiratory failure secondary to COPD with exacerbation Unclear precipitating etiology for the patient's COPD. However, this may have been precipitated by a upper respiratory infection, given the patient's sinus related complaints and postnasal drip. Given that she remains afebrile without any focal infiltrate on chest imaging, I agree with holding antimicrobials. It is reasonable to continue scheduled bronchodilators and steroids. The patient did respond symptomatically to the use of BiPAP. When preparing for discharge, the patient was noted to become significantly hypoxemic with exertion. Therefore, CTA chest was obtained which showed no evidence for pulmonary embolism. Chronic scarring and emphysema was noted. I would still ask cardiology to complete an echo with bubble contrast to evaluate for the presence of a cardiac level shunt. I have asked that the nursing staff repeat her ambulatory oximetry study today to reevaluate her supplemental oxygen needs. 2. History of depression/anxiety/tobacco dependency/hyperlipidemia Complicates care, management, recovery and prognosis. Continue home medications as indicated. Tobacco cessation counseling was provided. This note was generated with [employer] dictation software. It may contain incorrect words, spelling, and punctuation that were not noted in checking the note before signing. Subjective Subjective The patient was seen and examined at the bedside this morning. Events from the last 24 hours have been reviewed. The patient is currently afebrile, hemodynamically stable and maintaining appropriate oxygen saturations on room air. The patient had an uneventful night and has no specific complaints this morning. CTA chest showed no evidence for pulmonary embolism yesterday. Although an echocardiogram was performed, it does not appear that a bubble study was completed to evaluate for cardiac level shunt. Objective Data Objective Data The patient's most recent lab work, culture data and imaging studies have all been personally reviewed. Vital Signs: Vital Signs Temp Pulse Resp BP Pulse Ox O2 Del Method O2 Flow Rate 97.6 F L 89 18 110/86 H 96 Room Air 1 09/03/22 03:35 09/03/22 06:16 09/03/22 03:35 09/03/22 03:35 09/03/22 06:16 09/03/22 06:16 09/03/22 04:12 FiO2 30 08/30/22 06:00 Oxygen Flow Rate (L/min) [ 8 AMBULATING with Oxygen #3] Oxygen Flow Rate (L/min) [ 6 AMBULATING with Oxygen #2] Oxygen Flow Rate (L/min) [ 4 AMBULATING with Oxygen #1] Oxygen Flow Rate (L/min) [At 0 REST on Room Air] Oxygen Flow Rate (L/min) 1 Oxygen Delivery Method Room Air Weight: 98 lb 8.746 oz Body Mass Index (BMI) 18.0 Intake & Output: Intake and Output for Last 24 Hours 09/01/22 09/02/22 09/03/22 23:59 23:59 23:59 Intake Total 1120 / 1120 560 / 560 Output Total 980 / 980 600 / 600 100 / 100 Balance 140 / 140 -40 / -40 -100 / -100 Medical Nutrition Assessment Dietitian: Malnutrition Criteria Met Start: 08/30/22 09:30 Freq: Status: Active Protocol: Document 08/30/22 09:31 AG (Rec: 08/30/22 09:31 [id number]) Nutrition Malnutrition Evidence of Malnutrition Exists Yes Malnutrition (severe): Chronic Evidenced By Suboptimal Energy Intake ( Severe),Physical Changes ( Severe) Clinical Problem Chronic Disease or Condition Related Malnutrition Etiology severe, chronic malnutrition related to inadequate energy intake w/ increased energy needs d/t COPD Signs/Symptoms as evidenced by estimated PO intake meeting <75% of estimated energy needs >3 months; Severe muscle wasting/ fat loss evident per physical exam in orbital, clavicle, acromion, and temporal areas; BMI 18.1 Status Active Problem Recommendation Dietitian Recommendations/Changes continue regular diet given evidence of malnutrition; will add 120mL ensure clear 4x/day w/ medpass and magic cup BID w/ lunch and dinner for additional nutrition if consumed. Lab / Micro Data Attestation: I reviewed the patient's lab results. Result Diagrams: 09/02/22 05:37 09/02/22 05:37 Labs: Laboratory Results - last 24 hr 09/02/22 05:37: WBC 11.2 H, RBC 4.00 L, Hgb 12.1, Hct 36.5 L, MCV 91.3, MCH 30.3, MCHC 33.2, RDW Std Deviation 45.1 H, RDW Coeff of Wayne 13.4, Plt Count 379, MPV 9.3, Immature Gran % (Auto) 1.200 H, Neut % (Auto) 74.6 H, Lymph % (Auto) 14.1 L, [place] % (Auto) 9.8, Eos % (Auto) 0.1, Baso % (Auto) 0.2, Absolute Neuts ( auto) 8.4 H, Absolute Lymphs (auto) 1.58, Nucleated RBC % 0 09/02/22 05:37: Sodium 143, Potassium 3.4 L, Chloride 108 H, Carbon Dioxide 29.0, Anion Gap 6, BUN 19 H, Creatinine 0.51 L, Estim Creat Clear Calc 30.15, Est GFR (MDRD) Af Amer 149, Est GFR (MDRD) Non-Af 123, BUN/Creatinine Ratio 37.5 H, Glucose 100, Calcium 8.1 L, Total Bilirubin 0.30, AST 41 H, ALT 73 H, Alkaline Phosphatase 61, Total Protein 5.6 L, Albumin 2.8 L, Globulin 2.8, Albumin/Globulin Ratio 1.0 Micro: Microbiology 08/29/22 10:55 Blood Culture (Wb) - Anticubital Left Blood Culture - Prelimi nary No growth in 48 hours. 08/29/22 15:15 Mucosa - Nasopharyngeal Respiratory Panel (PCR) - Final 08/29/22 11:20 Nasal Secretion SARS-CoV-2 & FLU Antigen (Rapid) - Final Radiography Diagnostic Testing: Radiology Impression Echocardiogram 09/01/22 15:50 Interpretation Summary The left ventricular ejection fraction is 65 %. Mild tricuspid valve insufficiency. Right ventricular systolic pressure estimated to be 36 mmHg. Ordering Physician: Nano Oliva Referring Physician: KYLAH HAM Performed By: Corie Duff RCS Chest CTA 09/02/22 06:50 IMPRESSION: No demonstrated pulmonary embolism or arterial dissection. Moderate biapical pleural parenchymal fibrosis stable. Moderate centrilobular emphysema predominantly within the upper lobes. Mild bibasilar fibrosis stable. Moderate atherosclerotic vascular calcification aortic arch. Small hiatal hernia. Electronically Signed: Antonio Angeles MD, JENNIFER at 10:42 EDT , Physical Exam Const alert, oriented x3 and no apparent distress General Appearance: cooperative HEENT normocephalic, head/scalp atraumatic and moist oral mucous membranes Eyes PERRL, EOMs intact bilaterally and conjunctivae normal Neck supple General: trachea midline Chest inspection of chest normal Resp normal respiratory effort and no use of accessory muscles Effort and Inspection: able to speak in complete sentences Auscultation: diminished lung sounds; Negative for rales, rhonchi or wheezes Cardio regular rate and regular rhythm GI normal to inspection, nondistended, normoactive bowel sounds Extremity no clubbing, cyanosis or edema Skin no rashes or lesions noted Neuro oriented x3, CN's II-XII intact bilaterally and moves all extremities Psych cooperative and affect normal Charges/Coding Visit Charges Inpatient E&M: 95927 Subs Hosp L2
[2022-09-03 06:54] LABS: Absolute Lymphocyte Count 0.71 X10^3/uL (0.83-4.51); Absolute Neutrophil Count 7.7 X10^3/uL (2.0-7.7); Basophil# 0.02 X10^3/uL; Basophil% 0.2 % (0-1); Hematocrit 37.8 % (37-47); Hemoglobin 12.4 g/dL (12.0-15.0); Lymphocyte # 0.71 X10^3/ul (0.83-4.51); Lymphocyte % 7.8 % (19-41); Mean Corp Hgb Conc 32.8 g/dL (32-36); Mean Corpuscular Hgb 30.2 pg (27.0-32.0); Mean Platelet Vol. 9.1 fl (6.2-12.0); Monocyte# 0.55 X10^3/uL; Monocyte% 6.1 % (0-10); NRBC Flagged by Analyzer 0 % (0-5); Neutrophil # 7.66 X10^3/uL (2.7-7.7); Neutrophil % 84.7 % (47-70); Platelet Count 391 K/mm3 (150-450); RBC Distribution Width CV 13.1 % (11.6-14.6); Red Blood Count 4.11 M/mm3 (4.2-5.4); White Blood Count 9.1 K/mm3 (4.4-11.0)
[2022-09-03 07:07] LABS: AST(SGOT) 21 U/L (15-37); Alanine Aminotransfer ALT/SGPT 63 U/L (13-56); Albumin, Serum 2.9 g/dL (3.2-5.0); Alkaline Phosphatase 61 U/L (45-117); Anion Gap 5 (5-15); BUN 21 mg/dL (7-18); BUN/Creat Ratio 37.2 RATIO (10-20); Calcium,Total 8.2 mg/dL (8.5-10.1); Chloride 104 mmol/L (98-107); Creatinine, Serum 0.56 mg/dL (0.55-1.02); EST Glomerular Filtration Rate 109 mL/min (>60); Est Glom Filt Rate - Afr Amer 132 mL/min (>60); Estimated Creatinine Clearance 30.08 ml/min; Glucose 126 mg/dL (74-106); Potassium 3.9 mmol/L (3.5-5.1); Protein, Total 5.9 g/dL (6.4-8.2); Sodium Level 138 mmol/L (136-145)
[2022-09-03] MEDS: Ipratropium/Albuterol Sulfate 3 ML AMPUL.NEB INHALATION ×2 (07:37→13:25)
[2022-09-03] MEDS: Aspirin 81 MG TAB.CHEW PO (07:58)
[2022-09-03] MEDS: Enoxaparin 30 MG/0.3 ML Syringe SC (09:44)
[2022-09-03] MEDS: Ensure Clear 120 ML Liquid PO (09:45)
--- NOTE | 2022-09-03 11:49 | PCM.DC ---
Discharge Instructions Diet Discharge Diet: No restrictions Activity Discharge Activity: Use Walker Follow Up Care Test Results: Test results from this visit will be discussed in further detail at your follow-up appointment, if applicable. Discharge Plan Admission Admit Date/Time: 08/29/22 12:25 Primary Reason for Your Visit: Shortness of breath Attending Provider: Nano Oliva Primary Care Provider: Cinda Moura Consulting Providers: Genaro Ortega ; Jannet Tubbs Instructions Patient Instructions: COPD: Wheezing and Chest Tightness, Discharge Instructions: COPD, COPD: Using Inhalers, ED Inhaler Use Additional Instructions / Restrictions: DISCHARGE INSTRUCTIONS PLEASE READ *Please take this with you to your next doctors appointment* -You will be discharged on a prednisone taper: -60 mg daily x3 days -50mg daily x3 days -40mg daily x3 days -30mg daily x3 days -20mg daily x3 days -10mg daily x3 days -You will be discharged with prescription for nebulizer treatments, if any questions please contact your circuit breaker assembler's office -Please follow-up with pulmonology upon discharge in 2 weeks. Please call their office to schedule hospital follow-up appointment upon discharge. -There is a medicine that can help with anxiety, appetite, and sleep. Discussed this medicine, mirtazapine, as well as risks and benefits with you and your daughter and ultimately you are agreeable to prescription being sent to the pharmacy. As discussed please do not take this during the day and if your blood pressure has been low (systolic blood pressure less than 100) would also not take this and contact your primary care physician for further instructions -Additionally you have been constipated, would recommend taking MiraLAX twice daily and senna?docusate 2 tabs twice a day until bowel movement and then take MiraLAX twice daily to maintain regular bowel movements. If diarrhea develops please discontinue and discuss with your primary care physician -It is listed that you are on 325 mg of aspirin and your home medication list, would advise decreasing this to 81 mg if needed, this can be discussed with prescribing physician upon discharge -You have been discharged with 5 L of oxygen to wear with ambulation/when moving around or walking -Please call your primary care provider's office upon discharge to schedule a hospital follow up within 1 week. -For any concerning signs or symptoms please call 911 or proceed to the nearest emergency department Discharge Orders/Prescriptions Prescriptions: New ipratropium-albuterol 0.5 mg-3 mg(2.5 mg base)/3 mL Solution For Nebulization 3 ml inhalation TID PRN (Reason: shortness of breath or wheezing) 30 Days Qty: 180 0RF Zyrtec 10 mg capsule 10 mg PO DAILY Qty: 30 0RF prednisone 20 mg tablet See Taper PO BREAKFAST Qty: 32 0RF Taper: Prednisone Taper 60 mg WITH BREAKFAST for 3 Days and 0 Hour 50 mg WITH BREAKFAST for 3 Days and 0 Hour 40 mg WITH BREAKFAST for 3 Days and 0 Hour 30 mg WITH BREAKFAST for 3 Days and 0 Hour 20 mg WITH BREAKFAST for 3 Days and 0 Hour 10 mg WITH BREAKFAST for 3 Days and 0 Hour sennosides-docusate sodium [Stool Softener-Stimulant Laxat] 8.6-50 mg Tablet 2 tab PO BID 10 Days Qty: 40 0RF mirtazapine 7.5 mg tablet 7.5 mg PO QHS 30 Days Qty: 30 0RF Continued cholecalciferol (vitamin D3) 2,000 unit capsule 2,000 unit PO DAILY coenzyme Q10 200 mg capsule 200 mg PO DAILY Stiolto Respimat 2.5-2.5 mcg/actuation mist 2 inh inhalation DAILY Qty: 4 11RF Discontinued aspirin 325 mg tablet 325 mg PO DAILY Referrals / Follow Up: Genaro Ortega DO [Med Staff - Active Staff] - See Referral Note (Please follow-up with pulmonology upon discharge. Please call their office to schedule hospital follow-up appointment upon discharge.) Cinda Moura RESTAURANT TEAM MEMBER-C [Primary Care Provider] - Sahra Delacruz NP, RESTAURANT TEAM MEMBER-C [Non-Staff] - Disposition Disposition (needs filled in before D/C Order can be placed): Home Health Service
--- NOTE | 2022-09-03 13:01 | PCM.DC.SUM ---
Providers Date of Admission: 08/29/22 Date of Discharge: 09/03/22 Primary Care Physician: DOTTY De La Rosa Consultations 08/29/22 15:04 Consult: Conversion Developer / Pulmonary Medicine Routine Consulting Provider: Genaro Ortega Reason for Consult: COPD Exacerbation, respiratory failure EMERGENT Consult: No MD Notified: Yes Date Notified: 08/29/22 Time Notified: 12:50 Method of Notification: Text Reason For Visit: RESPIRATORY FAILURE, COPD EXACERBATION Diagnosis Discharge Diagnosis (1) Acute exacerbation of chronic obstructive pulmonary disease: Status: Chronic Code(s): J44.1 - Chronic obstructive pulmonary disease with (acute) exacerbation Plan #Acute respiratory distress and hypoxia secondary to acute exacerbation of chronic COPD #Hx COPD -Follows w/ [facility] -Last PFTs 01/10/19: Irreversible moderate large airways obstructive ventilatory defect with associated air trapping and mild reduction in diffusing capacity -Pulmonary exercise test 08/18/2020 with no need for O2. #Tobacco use Medications at Discharge Home Medications coenzyme Q10 200 mg capsule 200 mg PO DAILY supplement 07/31/18 cholecalciferol (vitamin D3) 50 mcg (2,000 unit) capsule 2,000 unit PO DAILY vitamin 08/01/18 tiotropium 2.5 mcg-olodaterol 2.5 mcg/actuation mist for inhalation (Stiolto Respimat) 2 inh inhalation DAILY #4 grams 03/16/22 cetirizine 10 mg capsule (Zyrtec) 10 mg PO DAILY #30 caps 09/01/22 ipratropium 0.5 mg-albuterol 3 mg (2.5 mg base)/3 mL nebulization soln 3 ml inhalation TID PRN shortness of breath or wheezing 30 days #180 mL 09/01/22 mirtazapine 7.5 mg tablet 7.5 mg PO QHS 30 days #30 tabs 09/03/22 prednisone 20 mg tablet See Taper PO BREAKFAST #32 tabs 09/03/22 sennosides 8.6 mg-docusate sodium 50 mg tablet (Stool Softener-Stimulant Laxative) 2 tab PO BID 10 days #40 tabs 09/03/22 Hospital Course Procedures Transthoracic echo Summary of Care Provided Minutes Spent on Discharge: 45 Hospital Course: 82 y/o F w/ PMHx: COPD, HLD, Tobacco use, Chronic bradycardia, Known Lung nodule, Depression and Anxiety, intermittently low BP, chronic Protein-Calorie malnutrition who presents to the [facility] ED on 08/29/22 with history of progressively worsening dyspnea over the past 4 days. She was 90% on room air and on 2 L was 97% however due to continued respiratory distress and increased work of breathing she was placed on BiPAP. Additionally she intermittently has low blood pressure but upon admission had a systolic in the 70s and was briefly in the ICU. She has known history of severe COPD and follows with posterior pulmonology but was not on home O2. She was started on IV steroids and bronchodilators, no infiltrate on chest x-ray and respiratory panel and COVID-negative. Had been transitioned to oral prednisone 40mg in preparation for discharge home 09/01 and she was feeling much better at rest.? Had discussed with pulmonology and they recommended a steroid taper and walk test to assess for needs for home O2.? Discharge completed just pending walk test however when she was ambulated she only made it several feet before becoming severely symptomatic and was 78% on 8 L and was moved back to the bed with a very slow recovery and continued high O2 requirements.? She had been saturating well on room air with max 2 L over the past day.? Discussed with pulmonology.? Given her severe symptoms with good pleth on walk test will order echo and discharge has been canceled.? She had CTA which demonstrated stable parenchymal fibrosis and emphysema with no pulmonary embolism and echocardiogram with RVSP of 36 and EF of 65%, overall unrevealing. Patient been transitioned back to IV steroids with plan for starting on 60 mg of oral instead of 40 with a longer taper. She was rewalked 09/03 with walker as physical therapy had recommended she use walker to help conserve energy as she is not very mobile at baseline and she required 5 L only with ambulation. Discussed with pulmonology, she will be discharged on steroid taper and advised to follow-up with pulm as an outpatient. Prior to discharge daughter raised concerns for anxiety and asked about Ativan, discussed risks of Ativan especially given her respiratory status and she verbalized understanding. There was however also concern about her poor appetite on top of her anxiety and occasional sleep disturbance, discussed mirtazapine with her daughter over the phone and then went to discussed with patient and another daughter at bedside. At bedside discussed common side effects including increased appetite and sedation as well as advised it could worsen low blood pressure and to not take it if blood pressure has been low and also to not take in the morning due to sedation. Advised patient can discuss further with her primary care physician if there is a specific concern or complaint and she verbalized her understanding and said she would like for it to be called in in the event that she does start it. On day of discharge was feeling better than previously and was agreeable to DC home. Discharge instructions as followed: DISCHARGE INSTRUCTIONS PLEASE READ *Please take this with you to your next doctors appointment* -You will be discharged on a prednisone taper: ? -60 mg daily x3 days ? -50mg daily x3 days ? -40mg daily x3 days ? -30mg daily x3 days ? -20mg daily x3 days ? -10mg daily x3 days -You will be discharged with prescription for nebulizer treatments, if any questions please contact your teacher adventure education's office -Please follow-up with pulmonology upon discharge in 2 weeks.? Please call their office to schedule hospital follow-up appointment upon discharge. -There is a medicine that can help with anxiety, appetite, and sleep.? Discussed this medicine, mirtazapine, as well as risks and benefits with you and your daughter and ultimately you are agreeable to prescription being sent to the pharmacy.? As discussed please do not take this during the day and if your blood pressure has been low (systolic blood pressure less than 100) would also not take this and contact your primary care physician for further instructions -Additionally you have been constipated, would recommend taking MiraLAX twice daily and senna?docusate 2 tabs twice a day until bowel movement and then take MiraLAX twice daily to maintain regular bowel movements.? If diarrhea develops please discontinue and discuss with your primary care physician -It is listed that you are on 325 mg of aspirin and your home medication list, would advise decreasing this to 81 mg if needed, this can be discussed with prescribing physician upon discharge -You have been discharged with 5 L of oxygen to wear with ambulation/when moving around or walking -Please call your primary care provider's office upon discharge to schedule a hospital follow up within 1 week. -For any concerning signs or symptoms please call 911 or proceed to the nearest emergency department Physical Exam Narrative General: Alert, oriented, thin HEENT: Atraumatic, normocephalic Eyes: Anicteric, normal conjunctiva, extraocular movements grossly intact Neck: Supple Respiratory: Lungs diminished, no wheezes appreciated, no increased work of breathing while sitting in bed at this time Cardiovascular: Regular rate and rhythm GI: Soft, nontender, nondistended Extremities: No edema Musculoskeletal: Moving all extremities Neuro: No overt focal neurological deficits Skin: No rashes appreciated, very tanned skin Psych: Cooperative, appears less anxious Medical Records Data Medical Nutrition Assessment Dietitian: Malnutrition Criteria Met Start: 08/30/22 09:30 Freq: Status: Active Protocol: Document 08/30/22 09:31 (Rec: 08/30/22 09:31 [id number]) Nutrition Malnutrition Evidence of Malnutrition Exists Yes Malnutrition (severe): Chronic Evidenced By Suboptimal Energy Intake ( Severe),Physical Changes ( Severe) Clinical Problem Chronic Disease or Condition Related Malnutrition Etiology severe, chronic malnutrition related to inadequate energy intake w/ increased energy needs d/t COPD Signs/Symptoms as evidenced by estimated PO intake meeting <75% of estimated energy needs >3 months; Severe muscle wasting/ fat loss evident per physical exam in orbital, clavicle, acromion, and temporal areas; BMI 18.1 Status Active Problem Recommendation Dietitian Recommendations/Changes continue regular diet given evidence of malnutrition; will add 120mL ensure clear 4x/day w/ medpass and magic cup BID w/ lunch and dinner for additional nutrition if consumed. Weight / BMI Weight Weight: 44.7 kg Body Mass Index (BMI) 18.0 ABG / Lab / Microbiology Data Result Diagrams: 09/03/22 06:38 09/03/22 06:38 Laboratory: Laboratory Results - last 24 hr 09/03/22 06:38: WBC 9.1, RBC 4.11 L, Hgb 12.4, Hct 37.8, MCV 92.0, MCH 30.2, MCHC 32.8, RDW Std Deviation 44.0 H, RDW Coeff of [place] 13.1, Plt Count 391, MPV 9.1, Immature Gran % (Auto) 1.200 H, Neut % (Auto) 84.7 H, Lymph % (Auto) 7.8 L, [place] % (Auto) 6.1, Eos % (Auto) 0.0, Baso % (Auto) 0.2, Absolute Neuts (auto) 7.7, Absolute Lymphs (auto) 0.71 L, Nucleated RBC % 0 09/03/22 06:38: Sodium 138, Potassium 3.9, Chloride 104, Carbon Dioxide 29.0, Anion Gap 5, BUN 21 H, Creatinine 0.56, Estim Creat Clear Calc 30.08, Est GFR (MDRD) Af Amer 132, Est GFR (MDRD) Non-Af 109, BUN/Creatinine Ratio 37.2 H, Glucose 126 H, Calcium 8.2 L, Total Bilirubin 0.40, AST 21, ALT 63 H, Alkaline Phosphatase 61, Total Protein 5.9 L, Albumin 2.9 L, Globulin 3.0, Albumin/Globulin Ratio 1.0 Microbiology: Microbiology 08/29/22 10:55 Blood Culture (Wb) - Anticubital Left Blood Culture - Final No growth in 5 days. 08/29/22 15:15 Mucosa - Nasopharyngeal Respiratory Panel (PCR) - Final 08/29/22 11:20 Nasal Secretion SARS-CoV-2 & FLU Antigen (Rapid) - Final D/C Instructions Discharge Diet: No restrictions Meaningful Use Info Meaningful Use Diagnoses (Choose all that apply): None applicable Discharge Plan Admission Admit Date/Time: 08/29/22 12:25 Primary Reason for Your Visit: Shortness of breath Attending Provider: Nano Oliva Primary Care Provider: Cinda Moura Consulting Providers: Genaro Ortega ; Jannet Tubbs Instructions Patient Instructions: COPD: Wheezing and Chest Tightness, Discharge Instructions: COPD, COPD: Using Inhalers, ED Inhaler Use Additional Instructions / Restrictions: DISCHARGE INSTRUCTIONS PLEASE READ *Please take this with you to your next doctors appointment* -You will be discharged on a prednisone taper: -60 mg daily x3 days -50mg daily x3 days -40mg daily x3 days -30mg daily x3 days -20mg daily x3 days -10mg daily x3 days -You will be discharged with prescription for nebulizer treatments, if any questions please contact your teacher adventure education's office -Please follow-up with pulmonology upon discharge in 2 weeks. Please call their office to schedule hospital follow-up appointment upon discharge. -There is a medicine that can help with anxiety, appetite, and sleep. Discussed this medicine, mirtazapine, as well as risks and benefits with you and your daughter and ultimately you are agreeable to prescription being sent to the pharmacy. As discussed please do not take this during the day and if your blood pressure has been low (systolic blood pressure less than 100) would also not take this and contact your primary care physician for further instructions -Additionally you have been constipated, would recommend taking MiraLAX twice daily and senna?docusate 2 tabs twice a day until bowel movement and then take MiraLAX twice daily to maintain regular bowel movements. If diarrhea develops please discontinue and discuss with your primary care physician -It is listed that you are on 325 mg of aspirin and your home medication list, would advise decreasing this to 81 mg if needed, this can be discussed with prescribing physician upon discharge -You have been discharged with 5 L of oxygen to wear with ambulation/when moving around or walking -Please call your primary care provider's office upon discharge to schedule a hospital follow up within 1 week. -For any concerning signs or symptoms please call 911 or proceed to the nearest emergency department Discharge Orders/Prescriptions Prescriptions: New ipratropium-albuterol 0.5 mg-3 mg(2.5 mg base)/3 mL Solution For Nebulization 3 ml inhalation TID PRN (Reason: shortness of breath or wheezing) 30 Days Qty: 180 0RF Zyrtec 10 mg capsule 10 mg PO DAILY Qty: 30 0RF prednisone 20 mg tablet See Taper PO BREAKFAST Qty: 32 0RF Taper: Prednisone Taper 60 mg WITH BREAKFAST for 3 Days and 0 Hour 50 mg WITH BREAKFAST for 3 Days and 0 Hour 40 mg WITH BREAKFAST for 3 Days and 0 Hour 30 mg WITH BREAKFAST for 3 Days and 0 Hour 20 mg WITH BREAKFAST for 3 Days and 0 Hour 10 mg WITH BREAKFAST for 3 Days and 0 Hour sennosides-docusate sodium [Stool Softener-Stimulant Laxat] 8.6-50 mg Tablet 2 tab PO BID 10 Days Qty: 40 0RF mirtazapine 7.5 mg tablet 7.5 mg PO QHS 30 Days Qty: 30 0RF Continued cholecalciferol (vitamin D3) 2,000 unit capsule 2,000 unit PO DAILY coenzyme Q10 200 mg capsule 200 mg PO DAILY Stiolto Respimat 2.5-2.5 mcg/actuation mist 2 inh inhalation DAILY Qty: 4 11RF Discontinued aspirin 325 mg tablet 325 mg PO DAILY Referrals / Follow Up: Genaro Ortega DO [Med Staff - Active Staff] - See Referral Note (Please follow-up with pulmonology upon discharge. Please call their office to schedule hospital follow-up appointment upon discharge.) Cinda Moura, ADVANCED NURSING PROFESSOR-C [Primary Care Provider] - Sahra Delacruz NP, ADVANCED NURSING PROFESSOR-C [Non-Staff] - Disposition Disposition (needs filled in before D/C Order can be placed): Home Health Service Charges/Coding Visit Charges Inpatient E&M: 94561 Disch Hosp >30min
== END 2022-09-03 16:22 | disposition home health service (06) | DRG 190 ==
LOC: ED 12:15 → ICU 08-30 07:59 → PCU 08-30 12:02
PROVIDERS: Admitting Provider Family Medicine; Emergency Provider Emergency Medicine; PCP Nurse Practitioner Family; Visit Provider Internal Medicine
DX: J44.1 Chronic obstructive pulmonary disease with (acute) exacerbation (principal); J96.01 Acute respiratory failure with hypoxia; E43 Unspecified severe protein-calorie malnutrition; Z68.1 Body mass index [BMI] 19.9 or less, adult; I95.89 Other hypotension; I10 Essential (primary) hypertension; F17.210 Nicotine dependence, cigarettes, uncomplicated; E78.00 Pure hypercholesterolemia, unspecified; E87.6 Hypokalemia; F41.9 Anxiety disorder, unspecified; J06.9 Acute upper respiratory infection, unspecified; R03.0 Elevated blood-pressure reading, without diagnosis of hypertension; Z79.82 Long term (current) use of aspirin; F32.A Depression, unspecified; Z66 Do not resuscitate; Z71.6 Tobacco abuse counseling; Z20.822 Contact with and (suspected) exposure to COVID-19
CPT/HCPCS: 36415; 71045; 71275; 80048; 80053; 82803; 83605; 83735; 84145; 84484; 85025; 85379; 87040; 87428; 87633; 93005; 93306; 94002; 94640; 94660; 94668; 94762; 97110; 97116; 97162; 97166; 97530; 97535; 97802; 99252; 99285; 99406; J7030; Q9967; A4216; G0463

== ENCOUNTER 2023-05-04 13:51 | Emergency (ER) | payer MEDICARE, MEDICAID, SELFPAY ==
[2023-05-04 13:51] VITALS: BP 118/76; PULSE 64; RESP 14; TEMP 36.4; O2SAT 97; BMI 19.5
[2023-05-04] MEDS: Diphth,Pertuss(Acell),Tet Vac 0.5 ML Vial IM (14:30)
[2023-05-04] MEDS: Lidocaine 1% /Epi 1:100 (20ml) 20 ML Vial INFILT (14:31)
--- NOTE | 2023-05-04 14:50 | EX.ED.DYSGE1 ---
HPI <DOTTY Fabian - Last Filed: 05/04/23 14:53> History of Present Illness Chief Complaint: Laceration Narrative Narrative: Patient is an 83-year-old female with history of hypertension, hyperlipidemia, COPD, who quit smoking a few months ago presenting to the [facility] with left leg injury. Patient was wearing pants, she closed the car door on her left calf. Patient has a 4 cm flap-like laceration to the lateral aspect of her left calf. Patient was concerned about the bleeding is here for evaluation. Patient is ambulatory. [facility] <DOTTY Fabian - Last Filed: 05/04/23 14:53> [facility] Medical History (Updated 05/04/23 @ 14:53 by DOTTY Fabian) Acute exacerbation of chronic obstructive pulmonary disease Acute hypotension Bradycardia COPD (chronic obstructive pulmonary disease) Depression Essential hypertension Lung nodule Pure hypercholesterolemia Respiratory failure Tobacco abuse Trigeminal neuralgia Vertigo Home Medications coenzyme Q10 200 mg capsule 200 mg PO DAILY supplement 07/31/18 [History Last Taken 1 Week Ago ~08/22/22] cholecalciferol (vitamin D3) 50 mcg (2,000 unit) capsule 2,000 unit PO DAILY vitamin 08/01/18 [History Last Taken 1 Week Ago ~08/22/22] ipratropium 0.5 mg-albuterol 3 mg (2.5 mg base)/3 mL nebulization soln 3 ml inhalation TID PRN shortness of breath or wheezing 30 days #180 mL 09/01/22 [Rx Last Taken Unknown] cetirizine 10 mg capsule (Zyrtec) 10 mg PO DAILY PRN allergy symptoms 09/19/22 [History Last Taken Unknown] docusate sodium 100 mg capsule (Colace) 100 mg PO DAILY PRN 10/18/22 [History Last Taken Unknown] albuterol sulfate 90 mcg/actuation aerosol inhaler 2 puff inhalation Q4-6H PRN 04/23/23 [History Last Taken Unknown] lorazepam 0.5 mg tablet mg PO DAILY PRN 04/23/23 [History Last Taken Unknown] pravastatin 40 mg tablet mg PO QHS PRN 04/23/23 [History Last Taken Unknown] tiotropium 2.5 mcg-olodaterol 2.5 mcg/actuation mist for inhalation (Stiolto Respimat) 2 inh inhalation DAILY #3 ea 04/23/23 [Rx Last Taken Unknown] Allergy/AdvReac Type Severity Reaction Status Date / Time No Known Allergies Allergy Verified 05/04/23 13:51 Family History (Reviewed 04/23/23 @ 13:48 by Laura Leonard COUNTING MACHINE OPERATOR, COUNTING MACHINE OPERATOR-C) Mother Heart disease Father Heart disease Diabetes Grandfather CVA (cerebral vascular accident) Brother Heart disease Surgical History History of hysterectomy History of lung biopsy Social History (Reviewed 04/23/23 @ 13:48 by Laura Leonard COUNTING MACHINE OPERATOR, COUNTING MACHINE OPERATOR-C) household members: none Smoking Status: Former smoker Tobacco: How many years used: 60 alcohol intake: never substance use type: does not use caffeine: Yes Type: carbonated beverages Number of servings: 2 ROS <DOTTY Fabian - Last Filed: 05/04/23 14:53> ROS ED ROS Narrative Constitutional: Negative for fever, chills, weight loss, weakness Eyes: Negative for vision loss, vision change, double vision ENT: Negative for any sore throat, ear pain, congestion Cardiovascular: Negative for any chest pain, tightness, palpitations Respiratory: Negative for any cough, sputum production, hemoptysis, dyspnea, dyspnea on exertion, orthopnea Gastrointestinal: Negative for any abdominal pain, nausea, vomiting, diarrhea, constipation, blood in stool, blood in vomit : Negative for any urinary frequency, dysuria, retention, blood in urine Muscle skeletal: Negative for any myalgias, arthralgias, neck pain, back pain Neurological: Negative for any headache, syncope, paresthesias, dizziness Skin: Negative for any rashes, lumps, itching, abrasions. Positive for left calf laceration Psychiatric: Negative for any depression, anxiety, stress, suicidal ideation, homicidal ideation Hematologic: Negative for any easy bruising, excessive bruising, easy bleeding Allergies: Negative for any eczema, hives, rash EXAM <DOTTY Fabian - Last Filed: 05/04/23 14:53> Physical Exam Narrative Exam Narrative: Vital signs reviewed. HEET: Head normocephalic atraumatic, TMs clear bilaterally. Posterior pharynx is clear, moist mucous membranes. Nares clear bilaterally. Neck: Supple with no lymphadenopathy or tenderness. No signs of meningismus. Cardiac: Regular rate and rhythm no murmurs gallops or rubs, equal peripheral pulses bilaterally. Respiratory: Lungs clear to auscultation bilaterally. No chest tenderness. Abdomen: Soft, nontender, nondistended. No abdominal bruit or pulsatile masses. No hepatosplenomegaly Extremities: No peripheral edema, no signs of gross trauma or deformity. Active full range of motion of all extremities. Patient has a 4 cm flap-like laceration to the lateral calf. There is adipose tissue exposed. This will need sutures. No tendon involvement, no foreign body noted Neuro: Cranial nerves II through XII intact, no focal neurological deficits. Skin: Clean dry and intact with no rash, purpura, petechiae, vesicles or pustules. Backs/flank: No CVA tenderness, no midline spinal tenderness, no deformity. Psych: Normal mood and affect. No SI, HI or acute psychosis. Const Vital Signs: 05/04/23 13:51 Temperature 97.6 F L Temperature Source Temporal Pulse Rate 64 Respiratory Rate 14 Blood Pressure 118/76 Blood Pressure Mean 90 Pulse Ox 97 Oxygen Delivery Method Room Air Positive well nourished and well developed General Appearance ED: well developed <Dr. Salvador Hanley MD - Last Filed: 05/04/23 15:41> Physical Exam Const Vital Signs: 05/04/23 13:51 Temperature 97.6 F L Temperature Source Temporal Pulse Rate 64 Respiratory Rate 14 Blood Pressure 118/76 Blood Pressure Mean 90 Pulse Ox 97 Oxygen Delivery Method Room Air MDM <DOTTY Fabian - Last Filed: 05/04/23 14:53> [facility] Treatment and Re-Evaluation :: Patient appears generally well, patient appears nontoxic, vital signs are stable. Presenting to the emergency department with a laceration to the left calf. Laceration is 4 cm in length, there is adipose tissue exposed. This was anesthetized with lidocaine with epinephrine. Sterile gloves, sterile drapes were used. I copiously irrigated the wound with 250 cc of normal saline. I placed 10 simple interrupted sutures of 4-0 Ethilon. Edges approximated nicely, patient tolerated well. Patient will have these removed in 12 days. She is instructed to keep the area clean and dry. Instructed to return for any worsening redness fever chills nausea or vomiting. All questions were answered, stable for discharge <Dr. Salvador Hanley MD - Last Filed: 05/04/23 15:41> MDM MDM Narrative Medical decision making narrative: I have personally performed a face to face assessment of the patient and have reviewed the CLAUDIA Note. I performed a substantive portion of the visit including all aspects of the following. My masters findings include: History is [83-year-old female when she was closing her car door caused a laceration to the left lateral lower leg on the calf. No other injuries.] Exam is [well-appearing female vital signs stable afebrile. HEENT exam unremarkable atraumatic. Neck nontender. Back nontender. Lungs clear. Heart regular rhythm. Abdomen soft nontender. Moving all 4 extremities. Neurovascular intact. Closed laceration left lateral lower leg. Good repair. Good closure and hemostasis. No signs of infection. No bony deformity. Left foot neurovascular intact.] Medical Decision Making [wound care. Suture removal 10 days. Follow-up as needed. Return if worse.] Other additions or changes: [None] Discharge Plan Triage Chief Complaint: Laceration ED Midlevel Provider: Gregory Amor ED Provider: Salvador Hanley Dx/Rx/DC Orders Clinical Impression: Laceration of leg Instructions: ED Laceration Extremity Prescriptions: No Action cholecalciferol (vitamin D3) 2,000 unit capsule 2,000 unit PO DAILY coenzyme Q10 200 mg capsule 200 mg PO DAILY docusate sodium [Colace] 100 mg capsule 100 mg PO DAILY PRN Zyrtec 10 mg capsule 10 mg PO DAILY PRN (Reason: allergy symptoms) pravastatin 40 mg tablet PO QHS PRN Patient Comments: TAKE 1 TABLET BY MOUTH EVERY DAY AT BEDTIME lorazepam 0.5 mg tablet PO DAILY PRN Rx Instructions: Dentist visits albuterol sulfate 90 mcg/actuation HFA aerosol inhaler 2 puff inhalation Q4-6H PRN Stiolto Respimat 2.5-2.5 mcg/actuation mist 2 inh inhalation DAILY Qty: 3 3RF ipratropium-albuterol 0.5 mg-3 mg(2.5 mg base)/3 mL Solution For Nebulization 3 ml inhalation TID PRN (Reason: shortness of breath or wheezing) 30 Days Qty: 180 0RF Primary Care Provider: Cinda Moura Referrals: Cinda Moura, MONTSERRAT-C [Primary Care Provider] - Activity Restrictions/Additional Instructions: You have 10 sutures placed, have these removed in 12 days. Keep the area clean and dry. Disposition Disposition: Home, Self Care Discharge Date/Time: 05/04/23 14:57
== END 2023-05-04 14:57 | disposition home or self-care (01) ==
PROVIDERS: Emergency Provider Emergency Medicine; PCP Nurse Practitioner Family; Visit Provider Emergency Medicine
DX: S81.812A Laceration without foreign body, left lower leg, initial encounter (principal); J44.9 Chronic obstructive pulmonary disease, unspecified; Z23 Encounter for immunization; W23.2XXA Caught, crushed, jammed or pinched between a moving and stationary object, initial encounter; I10 Essential (primary) hypertension; E78.00 Pure hypercholesterolemia, unspecified; Z87.891 Personal history of nicotine dependence
CPT/HCPCS: 12002; 90471; 90715; 99283

== ENCOUNTER → 2024-09-23 | Outpatient (CLI) | payer MEDICARE, MEDICAID, SELFPAY ==
[2024-09-23 13:16] VITALS: PULSE 100; PULSE 81; PULSE 85; PULSE 89; PULSE 92; PULSE 95; PULSE 99; O2SAT 90; O2SAT 91; O2SAT 92; O2SAT 94
--- NOTE | 2024-09-25 10:06 | PCM.PSN.6M ---
PSN 6 Minute Walk Test 6 Minute Walk Test 6 Minute Walk Test: 6 Minute Walk Test PSN:6-Minute Walk Test Start: 09/23/24 13:15 Freq: Status: Active Protocol: RESP.6MINW Document 09/23/24 13:16 JR (Rec: 09/23/24 13:17 JR [id number]) 6 Minute Walk Test Date Performed 09/23/24 Time Performed 13:00 Height 5 ft 3 in Weight: 104 lb Weight in Pounds 104.[address]: cam Assistive device None used: Pre-test Oxygen Delivery Room Air Method Pulse Ox (%) 92 Pulse Rate (60-100 81 beats/min) Dyspnea Sabino Scale ( 0 0-10) Exertion Sabino Scale 6 (6-20) 1st minute Oxygen Delivery Room Air Method Pulse Ox (%) 91 Pulse Rate (60-100 89 beats/min) 2nd minute Oxygen Delivery Room Air Method Pulse Ox (%) 91 Pulse Rate (60-100 92 beats/min) 3rd minute Oxygen Delivery Room Air Method Pulse Ox (%) 92 Pulse Rate (60-100 95 beats/min) 4th minute Oxygen Delivery Room Air Method Pulse Ox (%) 92 Pulse Rate (60-100 95 beats/min) 5th minute Oxygen Delivery Room Air Method Pulse Ox (%) 90 Pulse Rate (60-100 100 beats/min) 6th minute Oxygen Delivery Room Air Method Pulse Ox (%) 90 Pulse Rate (60-100 99 beats/min) Dyspnea Sabino Scale ( 3 0-10) Exertion Sabino Scale 11 (6-20) Post-test Oxygen Delivery Room Air Method Pulse Ox (%) 94 Pulse Rate (60-100 85 beats/min) Full Laps Walked 18 Partial Lap, Number 0 of Tiles Walked Total Distance 1062 Walked (ft) Interpretation Interpretation: The patient ambulated 1062 feet over the course of 6 minutes beginning on room air without assistive devices. Pretesting oxygen saturation was noted to be 92% on room air. With ambulation, the elvin oxygen saturation was 91%. There was no significant exertional oxygen desaturation. Recommendations Recommendations: There is no indication for the use of supplemental oxygen at this time.
== END | disposition home or self-care (01) ==
LOC: PSN 12:32
PROVIDERS: PCP Nurse Practitioner Family; Referring Provider Nurse Practitioner Acute Care; Visit Provider Nurse Practitioner Acute Care
DX: J43.2 Centrilobular emphysema (principal)
CPT/HCPCS: 94618

== ENCOUNTER → 2024-09-24 | Outpatient (CLI) | payer MEDICARE, MEDICAID, SELFPAY | END | disposition home or self-care (01) | LOC: SL 14:58 | PROVIDERS: PCP Nurse Practitioner Family; Referring Provider Nurse Practitioner Acute Care; Visit Provider Nurse Practitioner Acute Care | DX: R09.02 Hypoxemia (principal) | CPT/HCPCS: 94762 ==

== ENCOUNTER → 2024-10-02 | Outpatient (CLI) | payer MEDICARE, MEDICAID, SELFPAY | END | disposition home or self-care (01) | LOC: SL 12:57 | PROVIDERS: PCP Nurse Practitioner Family; Visit Provider Nurse Practitioner Acute Care | DX: R09.02 Hypoxemia (principal) | CPT/HCPCS: 94762 ==

== ENCOUNTER 2024-12-23 11:31 | Inpatient (IN) | payer MEDICARE, MEDICAID, SELFPAY ==
[2024-12-23] VITALS (17 sets, daily range): BP systolic 107–154; BP diastolic 41–94; PULSE 32–87; RESP 12–27; TEMP 35.9–37; O2SAT 96–100; BMI 19.1; BMI 19.8
--- NOTE | 2024-12-23 11:46 | EKG12_ITS ---
Test Reason : SOB Blood Pressure : */* mmHG Vent. Rate : 43 BPM Atrial Rate : 43 BPM P-R Int : 328 ms QRS Dur : 120 ms QT Int : 522 ms P-R-T Axes : 87 79 75 degrees QTcB Int : 441 ms Marked sinus bradycardia with 2:1 AV block Right bundle branch block Septal infarct , age undetermined Abnormal ECG Confirmed by SHAI CARROLL, DARYL ([id number]), photograph editor GERALD WHARTON ([id number]) on 12/24/2024 8:00:34 AM Referred By: Confirmed By: DARYL GIBBONS MD
--- NOTE | 2024-12-23 12:16 | EKG12_ITS ---
Test Reason : REPEAT Blood Pressure : */* mmHG Vent. Rate : 41 BPM Atrial Rate : 101 BPM P-R Int : * ms QRS Dur : 120 ms QT Int : 574 ms P-R-T Axes : 82 90 68 degrees QTcB Int : 473 ms Critical Test Result: AV Block Sinus tachycardia with complete heart block and Wide QRS rhythm Right bundle branch block Abnormal ECG Confirmed by SHAI CARROLL, DARYL ([id number]), publication editor GERALD WHARTON ([id number]) on 12/24/2024 8:00:15 AM Referred By: Confirmed By: DARYL GIBBONS MD
--- NOTE | 2024-12-23 12:22 | ED.VIS.DYS ---
HPI History of Present Illness Chief Complaint: Shortness of Breath Narrative Narrative: Chief complaint and HPI: 84-year-old female with past medical history of bradycardia, COPD, HTN, HLD presents for evaluation of progressive shortness of breath. Patient follows with pulmonology. She states she is chronically short of breath however it is progressively worsening. Worse with exertion. Patient states that it increased yesterday evening while lying down which is why she presents to the emergency department. She does not take her nebulizers. She denies any fever, chills, chest pain, abdominal pain, nausea, vomiting, lower extremity swelling or pain, URI symptoms. She is a previous tobacco abuser which she quit 2 years ago. Review of systems: See HPI Medications: As listed on the chart Allergies: As listed on the chart PFSH: Per chart Vital signs: As listed on the chart. Reviewed. Physical exam: Gen: A&O x3, NAD Head: Normocephalic, atraumatic Eyes: No sclera icterus, conjunctiva clear ENT: Moist mucous membranes Neck: Trachea midline, No JVD CV: Bradycardic, regular rhythm, no murmurs, no peripheral edema Resp: Lungs CTA BL, with mild expiratory wheezing, not dyspneic or tachypneic Musc: Full ROM, no deformity Skin: Warm, dry Neuro: Alert, oriented, grossly intact, sensation intact Psych: Cooperative, appropriate mood and affect [facility] Medical History (Updated 12/23/24 @ 16:[address] Nano Oliva MD) Acute hypotension Acute exacerbation of chronic obstructive pulmonary disease Respiratory failure Vertigo Pure hypercholesterolemia Tobacco abuse Depression Essential hypertension COPD (chronic obstructive pulmonary disease) Lung nodule Trigeminal neuralgia Bradycardia Home Medications ?Medication ?Instructions ?Recorded ?Last Taken ?Type coenzyme Q10 200 mg capsule 200 mg PO DAILY supplement 07/31/18 1 Week Ago History ~08/22/22 cholecalciferol (vitamin D3) 50 2,000 unit PO DAILY vitamin 08/01/18 1 Week Ago History mcg (2,000 unit) capsule ~08/22/22 ipratropium 0.5 mg-albuterol 3 mg 3 ml inhalation TID PRN shortness 09/01/22 Unknown Rx (2.5 mg base)/3 mL nebulization of breath or wheezing 30 days #180 soln mL pravastatin 40 mg tablet mg PO QHS PRN 04/23/23 Unknown History albuterol sulfate 90 mcg/actuation 2 puff inhalation Q4-6H PRN 10/03/23 Unknown Rx aerosol inhaler shortness of breath or wheezing #8.5 grams hydrochlorothiazide 12.5 mg capsule 12.5 mg PO QDAY 11/16/23 Unknown History tiotropium 2.5 mcg-olodaterol 2.5 2 inh inhalation DAILY #4 grams 09/19/24 Unknown Rx mcg/actuation mist for inhalation (Stiolto Respimat) Allergy/AdvReac Type Severity Reaction Status Date / Time No Known Allergies Allergy Verified 08/29/24 14:25 Family History Mother Heart disease Father Heart disease Diabetes Grandfather CVA (cerebral vascular accident) Brother Heart disease Surgical History History of lung biopsy History of hysterectomy Social History household members: none Smoking Status: Former smoker Tobacco: How many years used: 60 alcohol intake: never substance use type: does not use caffeine: Yes Type: carbonated beverages Number of servings: 2 EXAM Physical Exam Const Vital Signs: 12/23/24 11:32 12/23/24 11:40 12/23/24 12:24 Temperature 97.5 F L Temperature Source Oral Pulse Rate 42 L 47 L Respiratory Rate 21 H 17 Respiratory Effort Normal Respiratory Depth Normal Respiratory Pattern Normal Blood Pressure 144/52 H 130/41 H Blood Pressure Mean 82 70 Pulse Ox 100 98 Oxygen Delivery Method Room Air Room Air 12/23/24 12:35 12/23/24 12:55 12/23/24 13:29 Temperature Temperature Source Pulse Rate 38 L 42 L 87 Respiratory Rate 27 H 19 H 15 Respiratory Effort Respiratory Depth Respiratory Pattern Tachypnea Blood Pressure 107/85 H 107/46 L Blood Pressure Mean 92 66 Pulse Ox 97 96 Oxygen Delivery Method Room Air 12/23/24 14:00 12/23/24 15:00 Temperature Temperature Source Pulse Rate 40 L 39 L Respiratory Rate 20 H 18 Respiratory Effort Respiratory Depth Respiratory Pattern Blood Pressure 154/50 H 132/42 H Blood Pressure Mean 84 72 Pulse Ox 99 98 Oxygen Delivery Method Room Air Room Air MDM MDM MDM Narrative Medical decision making narrative: 84-year-old female with past medical history of bradycardia, COPD, HTN, HLD presents for evaluation of progressive shortness of breath. Patient follows with pulmonology. She states she is chronically short of breath however it is progressively worsening. Worse with exertion. Patient states that it increased yesterday evening while lying down which is why she presents to the emergency department. She does not take her nebulizers. Denies any URI symptoms. On chart review, patient last saw pulmonology 08/02/2024. The office note states that they started her on Trelegy however she noticed hoarseness and stopped taking it. She is currently on Stiolto but she admits that she is really not noticing any benefit with this when she was seen. Differential diagnosis includes but is not limited to COPD exacerbation, symptomatic bradycardia, arrhythmia, ACS, CHF, PE. Patient does have some mild expiratory wheezing on exam. P.o. prednisone, DuoNeb, albuterol ordered. On chart review, patient does not take metoprolol or calcium leslie to cause her bradycardia however on chart review she has a history of bradycardia. Heart rate is mostly in the mid to low 40s however in August her heart rate was normal. Respiratory/cardiac workup ordered. EKG and chest x-ray reviewed. CBC without leukocytosis or anemia. Platelets unremarkable. D-dimer unremarkable. BMP unremarkable. Troponin 21. Delta troponin pending. Patient not endorsing any chest pain. BNP 2871. Patient not fluid overloaded on physical exam or chest x-ray. On chart review,. To that echocardiogram in 2022 shows an EF of 65%. Patient's heart rates dropping into the low 30s. On cardiac monitoring in the emergency department, patient now appears to be in complete heart block. Repeat EKG was obtained. Repeat EKG shows complete heart block with right bundle branch block. Heart rate 41. No ST elevation. Patient is alert and oriented. She is asymptomatic other than her mild shortness of breath. Will place pacer pads on the patient in case needed. Patient and family member was updated of all the results. Patient states that she is unsure if she would want to be intubated if needed. She does not want to be resuscitated with CPR. Patient states that she would want pacemaker. Cardiology was consulted and I spoke with Dr. Valero. Plan is to admit to the ICU and he will evaluate the patient for likely pacemaker. Dr. Oliva was consulted and patient was admitted. Repeat troponin 21. EKG: Interpreted by me/EM physician: EKG shows sinus bradycardia with first-degree AV block. There is artifact. Right bundle branch block. Nonspecific ST changes. Heart rate 43. On chart review, patient had the right bundle branch block in July 2022. Diagnostic: Interpreted by me/EM physician: Chest x-ray without pneumonia, effusion, cardiomegaly, pneumothorax. Chronic lung changes. Radiology in agreement. 35 minutes of critical care time utilized in managing the patient. This is due to high probability of and deterioration of the patient based on the patient's condition and excludes any separately billable procedures. Impression: 1. Complete heart block 2. Mild COPD exacerbation Lab Data Labs: Laboratory Results - last 24 hr 12/23/24 12/23/24 12:25 14:33 WBC 7.5 RBC 4.10 L Hgb 12.3 Hct 36.9 L MCV 90.0 MCH 30.0 MCHC 33.3 RDW Std Deviation 42.3 RDW Coeff of Wayne 12.8 Plt Count 264 MPV 9.3 Immature Gran % (Auto) 0.300 Neut % (Auto) 67.2 Lymph % (Auto) 19.4 Wayne % (Auto) 12.1 H Eos % (Auto) 0.7 Baso % (Auto) 0.3 Absolute Neuts (auto) 5.0 Absolute Lymphs (auto) 1.45 Nucleated RBC % 0 D-Dimer Quant (PE/DVT) 0.46 Sodium 134 Potassium 3.9 Chloride 99 Carbon Dioxide 24.8 Anion Gap 11 BUN 12 Creatinine 0.84 Estim Creat Clear Calc 37.95 L Est GFR (MDRD) Non-Af 68 BUN/Creatinine Ratio 14.0 Glucose 97 Calcium 9.1 Troponin T High Sens 21 H Troponin T Hi Sens 2 Hr 21 H NT pro BNP II 2871 H Radiography Diagnostic Testing: Clinical Impression(s) from Imaging Studies Chest X-Ray 12/23/24 13:08 IMPRESSION: Hyperinflation and COPD. Stable examination. Reading Location: [place] [id number] Discharge Plan Disposition Disposition: Acute Care Hospital [facility] Discharge Date/Time: 12/23/24 15:58
[2024-12-23] MEDS: Albuterol 2.5 MG/3 ML VIAL.NEB. INHALATION (12:28)
[2024-12-23 12:49] LABS: D-Dimer Quantitative (DVT/PE) 0.46 FEU/ug/m (0.27-0.49); Hematocrit 36.9 % (37-47); Hemoglobin 12.3 g/dL (12.0-15.0); Immature Granulocytes Count 0.020 X10^3/uL (0.0-0.0); Mean Corp Hgb Conc 33.3 g/dL (32-36); Mean Corpuscular Volume 90.0 fL (81-99); Mean Platelet Vol. 9.3 fl (6.2-12.0); NRBC Flagged by Analyzer 0 % (0-5); Platelet Count 264 K/mm3 (150-450); RBC Distribution Width CV 12.8 % (11.6-14.6); RBC Distribution Width SD 42.3 fl (35.1-43.9); Red Blood Count 4.10 M/mm3 (4.2-5.4); White Blood Count 7.5 K/mm3 (4.4-11.0)
--- NOTE | 2024-12-23 13:08 | RAD_ITS ---
PROCEDURE: CHEST PA AND LATERAL 12/23/2024 REASON FOR EXAM: SHORTNESS OF BREATH TECHNIQUE: Procedure Code: RADCXR Modality: DX Procedure: CHEST PA AND LATERAL COMPARISON: Prior study dated August 29, 2022. FINDINGS: Hardware: EKG electrodes are seen. Heart: The heart size is normal. Mediastinum: The mediastinal contour is unremarkable. Lungs: Hyperinflation. Stable mild scarring at the lung bases. Calcification of the aortic arch. Bones: Degenerative changes are identified within the thoracic spine. RAD/Chest PA and Lateral IMPRESSION: Hyperinflation and COPD. Stable examination. Reading Location: [place] [address]
[2024-12-23 13:10] LABS: Anion Gap 11 (5-15); BUN 12 mg/dL (4-19); BUN/Creat Ratio 14.0 RATIO (10-20); Calcium,Total 9.1 mg/dL (7.6-11.0); Carbon Dioxide 24.8 mmol/L (21.0-32.0); Chloride 99 mmol/L (98-108); Estimated Creatinine Clearance 37.95 ml/min (50-250); Glucose 97 mg/dL (70-99); Potassium 3.9 mmol/L (3.3-5.1)
[2024-12-23 13:30] LABS: Pro- Brain NATRIURETIC PEPTIDE 2871 pg/mL (<=1800); Troponin T High Sensitivity 21 ng/L (<=14)
[2024-12-23 15:15] LABS: Troponin T High Sens 2 HR 21 ng/L (<=14)
--- NOTE | 2024-12-23 15:23 | PCM.HP.STD ---
HPI - General General Date of Admission: 12/23/24 Date of Service: 12/23/24 Chief Complaint: Shortness of breath HPI Narrative MARYCHUY CROFT, is a 84-year-old female history of COPD and hypertension who presented to [facility] ED 12/23/2024 with increasing shortness of breath. Has chronic shortness of breath and follows with pulmonology but feels her breathing has been worse with exertion and yesterday she noticed increased shortness of breath when lying down and had gasping breathing overnight so she came to the ED. In the ED temp 97.5, heart rate 42, blood pressure 144/52, respiratory rate 21 and pulse ox 100% on room air. CBC with white count 7.5 hemoglobin 12.3, D-dimer negative, BMP with a BUN of 12 creatinine 0.84, troponin of 21 and proBNP 2800, chest x-ray with hyperinflation and no acute process. EKG revealed complete heart block, patient was vitally stable and did not require pacing but pacer pads placed and cardiology contacted who recommended ICU admission and they will see in consultation for likely pacemaker. Patient evaluated at bedside. She has been more short of breath recently and overnight she noticed that she was gasping for air, sitting up in the ED she feels a little bit better but still more short of breath than baseline. No cough or chest pain, no recent medication changes. Has some chronic diarrhea with no changes. No new swelling in lower extremities. No other new or acute complaints. [facility] Medical History (Updated 12/23/24 @ 16:[address] Nano Oliva MD) Acute exacerbation of chronic obstructive pulmonary disease Acute hypotension Bradycardia COPD (chronic obstructive pulmonary disease) Depression Essential hypertension Lung nodule Pure hypercholesterolemia Respiratory failure Tobacco abuse Trigeminal neuralgia Vertigo Home Medications ?Medication ?Instructions ?Recorded ?Last Taken ?Type coenzyme Q10 200 mg capsule 200 mg PO DAILY supplement 07/31/18 1 Week Ago History ~08/22/22 cholecalciferol (vitamin D3) 50 2,000 unit PO DAILY vitamin 08/01/18 1 Week Ago History mcg (2,000 unit) capsule ~08/22/22 ipratropium 0.5 mg-albuterol 3 mg 3 ml inhalation TID PRN shortness 09/01/22 Unknown Rx (2.5 mg base)/3 mL nebulization of breath or wheezing 30 days #180 soln mL pravastatin 40 mg tablet mg PO QHS PRN 04/23/23 Unknown History albuterol sulfate 90 mcg/actuation 2 puff inhalation Q4-6H PRN 10/03/23 Unknown Rx aerosol inhaler shortness of breath or wheezing #8.5 grams hydrochlorothiazide 12.5 mg capsule 12.5 mg PO QDAY 11/16/23 Unknown History tiotropium 2.5 mcg-olodaterol 2.5 2 inh inhalation DAILY #4 grams 09/19/24 Unknown Rx mcg/actuation mist for inhalation (Stiolto Respimat) Allergy/AdvReac Type Severity Reaction Status Date / Time No Known Allergies Allergy Verified 08/29/24 14:25 Family History Mother Heart disease Father Heart disease Diabetes Grandfather CVA (cerebral vascular accident) Brother Heart disease Surgical History History of hysterectomy History of lung biopsy Social History household members: none Smoking Status: Former smoker Tobacco: How many years used: 60 alcohol intake: never substance use type: does not use caffeine: Yes Type: carbonated beverages Number of servings: 2 ROS ROS Narrative General: Denies fever/chills HENT: Denies headache, denies stuffy nose, denies sore throat EYES: Denies changes in vision Resp: No productive cough, increased shortness of breath recently on top of baseline Cardiac: Denies chest pain GI: Denies abdominal pain, some chronic problems diarrhea, denies nausea/vomiting : Denies changes in urination Extremity: Denies any new swelling MSK: Denies weakness Neuro: Denies any numbness/tingling Heme: Denies any bleeding or bruising Skin: Denies rashes Psychiatric: No complaints voiced Vital Signs Vital Signs Vital Signs: 12/23/24 11:32 12/23/24 11:40 12/23/24 12:24 Temperature 97.5 F L Temperature Source Oral Pulse Rate 42 L 47 L Respiratory Rate 21 H 17 Respiratory Effort Normal Respiratory Depth Normal Respiratory Pattern Normal Blood Pressure 144/52 H 130/41 H Blood Pressure Mean 82 70 Pulse Ox 100 98 Oxygen Delivery Method Room Air Room Air 12/23/24 12:35 12/23/24 12:55 12/23/24 13:29 Temperature Temperature Source Pulse Rate 38 L 42 L 87 Respiratory Rate 27 H 19 H 15 Respiratory Effort Respiratory Depth Respiratory Pattern Tachypnea Blood Pressure 107/85 H 107/46 L Blood Pressure Mean 92 66 Pulse Ox 97 96 Oxygen Delivery Method Room Air 12/23/24 14:00 Temperature Temperature Source Pulse Rate 40 L Respiratory Rate 20 H Respiratory Effort Respiratory Depth Respiratory Pattern Blood Pressure 154/50 H Blood Pressure Mean 84 Pulse Ox 99 Oxygen Delivery Method Room Air Weight Weight: 49.1 kg Body Mass Index (BMI) 19.1 Physical Exam Narrative General: Alert, oriented HEENT: Atraumatic, normocephalic Eyes: Anicteric, normal conjunctiva, extraocular movements grossly intact Neck: Supple Respiratory: No significant wheezes or rhonchi on my evaluation, normal respiratory effort Cardiovascular: Bradycardic high 30s low 40s GI: Soft, nontender, nondistended Extremities: No significant pitting edema Musculoskeletal: Moving all extremities Neuro: No overt focal neurological deficits Skin: No rashes appreciated Psych: Cooperative but appears very anxious Results Lab / Micro Data 12/23/24 12:25 12/23/24 12:25 Labs: Laboratory Results - last 24 hr 12/23/24 12:25: WBC 7.5, RBC 4.10 L, Hgb 12.3, Hct 36.9 L, MCV 90.0, MCH 30.0, MCHC 33.3, RDW Std Deviation 42.3, RDW Coeff of [place] 12.8, Plt Count 264, MPV 9.3, Immature Gran % (Auto) 0.300, Neut % (Auto) 67.2, Lymph % (Auto) 19.4, [place] % (Auto) 12.1 H, Eos % (Auto) 0.7, Baso % (Auto) 0.3, Absolute Neuts (auto) 5.0, Absolute Lymphs (auto) 1.45, Nucleated RBC % 0, D-Dimer Quant (PE/DVT) 0.46, Sodium 134, Potassium 3.9, Chloride 99, Carbon Dioxide 24.8, Anion Gap 11, BUN 12, Creatinine 0.84, Estim Creat Clear Calc 37.95 L, Est GFR (MDRD) Non-Af 68, BUN/Creatinine Ratio 14.0, Glucose 97, Calcium 9.1, Troponin T High Sens 21 H, NT pro BNP II 2871 H 12/23/24 14:33: Troponin T Hi Sens 2 Hr 21 H Imaging Radiology Impression Chest X-Ray 12/23/24 13:08 IMPRESSION: Hyperinflation and COPD. Stable examination. [facility] Assessment & Plan Assessment/Plan (1) CHB (complete heart block): PLAN: Plan # Symptomatic complete heart block -Admitting to ICU -Patient presently vitally stable, breathing slightly better than it was last night but is still in complete heart block with rate around 40 with narrow QRS complex -Discussed with cardiology, patient be admitted the ICU and n.p.o. at midnight -Patient does have pacer pads on but is not required pacing at this time -Does not appear to be on any beta-leslie or calcium channel leslie that could have caused or contributed to this -Will check mag and TSH #Elevated proBNP -Patient with increased shortness of breath and proBNP of 2800 with no baseline, may be due to the above -Does not appear fluid overloaded on my exam and chest x-ray does not appear overloaded so we will hold off on any empiric Lasix -Will check echocardiogram -Patient to be monitored on telemetry in the ICU as above #Hx COPD -Continue home inhalers once med rec verified -Incentive spirometer #Hypertension - Awaiting home med rec update, BP was low 100s during my evaluation, appears patient may be on hydrochlorothiazide, will hold at this time pending further stability #DVT ppx: SCDs Nano Oliva MD Charges/Coding Visit Charges Inpatient E&M: 71151 Init Hosp L2
--- NOTE | 2024-12-23 16:08 | ECHOD_ITS ---
Reason For Study Left Ventricle Normal LV size. The left ventricular ejection fraction is 65 %. Stage 1 diastolic dysfunction. No regional wall motion abnormalities noted. Right Ventricle Normal RV size. Normal systolic function. Atria Normal left atrium. Normal right atrium. Mitral Valve Normal mitral valve. Tricuspid Valve Normal tricuspid valve. Mild tricuspid valve insufficiency. Pulmonary artery systolic pressure is 26 mmHg. Aortic Valve Trisinus/trileaflet aortic valve. Pulmonic Valve Normal pulmonic valve. Great Vessels Normal sized aortic root. The pulmonary artery is normal size. Inferior vena cava collapse with respiration. Pericardium/Pleural No pericardial effusion. MMode/2D Measurements & Calculations LVIDd: 3.7 cm IVSd: 0.77 cm Ao root diam: 3.3 cm LVIDs: 2.6 cm LVPWd: 0.77 cm FS: 28.5 % LAV(MOD-bp): 28.9 ml LVAd ap4: 13.9 cm2 SV(MOD-sp4): 19.1 ml LAV(MOD-bp) Indexed: 19.4 ml/m2 LVLd ap4: 5.7 cm SI(MOD-sp4): 12.9 ml/m2 LAV(MOD-sp2): 27.5 ml EDV(MOD-sp4): 28.5 ml LAV(MOD-sp4): 28.1 ml EDV(sp4-el): 28.5 ml LVAs ap4: 7.1 cm2 LVLs ap4: 4.7 cm ESV(MOD-sp4): 9.3 ml ESV(sp4-el): 9.2 ml EF(MOD-sp4): 67.2 % EF(sp4-el): 67.9 % SV(sp4-el): 19.3 ml LA dimension(2D): 2.5 cm LA A4 area: 12.4 cm2 RA A4 area: 9.7 cm2 TAPSE: 1.8 cm Time Measurements MV dec time: 0.33 sec Doppler Measurements & Calculations MV E max tavo: 68.2 cm/sec Lat Peak E' Tavo: 7.2 cm/sec Med Peak E' Tavo: 9.8 cm/sec MV A max tavo: 88.3 cm/sec E/E' lat: 9.5 E/E' med: 7.0 MV E/A: 0.77 Ao V2 max: 114.7 cm/sec LV V1 max: 54.8 cm/sec PA V2 max: 92.8 cm/sec Ao max P.3 mmHg LV V1 max P.2 mmHg Ao V2 mean: 75.7 cm/sec LV V1 mean P.62 mmHg Ao mean P.5 mmHg LV V1 mean: 38.0 cm/sec Ao V2 VTI: 25.3 cm LV V1 VTI: 12.3 cm AV (velocity ratio): 0.49 TR max tavo: 243.8 cm/sec TR max P.8 mmHg ECHO/Echo Complete Interpretation Summary Normal LV size. The left ventricular ejection fraction is 65 %. Stage 1 diastolic dysfunction. Pulmonary artery systolic pressure is 26 mmHg. Ordering Physician: Nano Oliva Performed By:
--- NOTE | 2024-12-23 18:20 | PCM.CONS.C ---
Assessment & Plan Assessment/Plan (1) CHB (complete heart block): PLAN: Patient presents with dizziness and an EKG noted to demonstrate complete heart block. I did discuss with the patient and her family that the plan at this time will be to consider a permanent pacemaker implantation. Her heart rate appears to be dipping into the 30s and my recommendation was to place a temporary pacemaker. A permanent pacemaker will be placed in AM. Above discussed with family and they understand and agree to proceed. (2) Essential hypertension: PLAN: Blood pressure appears to be under good control at this time no major changes will be made (3) CHF (congestive heart failure): PLAN: She does have an elevated natruretic peptide level I will recommend 1 dose of IV diuretics to help her breathing. An echocardiogram will be performed in a.m. HPI Consult Data Date of Consult: 12/23/24 HPI Narrative HPI Narrative: MARYCHUY CROFT, is a 84 F who presents [facility] Medical History (Updated 12/23/24 @ 18:[address] Joe Valero MD) Acute hypotension Acute exacerbation of chronic obstructive pulmonary disease Respiratory failure Vertigo Pure hypercholesterolemia Tobacco abuse Depression Essential hypertension COPD (chronic obstructive pulmonary disease) Lung nodule Trigeminal neuralgia Bradycardia Home Medications ?Medication ?Instructions ?Recorded ?Last Taken ?Type coenzyme Q10 200 mg capsule 200 mg PO DAILY supplement 07/31/18 1 Week Ago History ~08/22/22 cholecalciferol (vitamin D3) 50 2,000 unit PO DAILY vitamin 08/01/18 1 Week Ago History mcg (2,000 unit) capsule ~08/22/22 ipratropium 0.5 mg-albuterol 3 mg 3 ml inhalation TID PRN shortness 09/01/22 Unknown Rx (2.5 mg base)/3 mL nebulization of breath or wheezing 30 days #180 soln mL pravastatin 40 mg tablet mg PO QHS PRN 04/23/23 Unknown History albuterol sulfate 90 mcg/actuation 2 puff inhalation Q4-6H PRN 10/03/23 Unknown Rx aerosol inhaler shortness of breath or wheezing #8.5 grams hydrochlorothiazide 12.5 mg capsule 12.5 mg PO QDAY 11/16/23 Unknown History tiotropium 2.5 mcg-olodaterol 2.5 2 inh inhalation DAILY #4 grams 09/19/24 Unknown Rx mcg/actuation mist for inhalation (Stiolto Respimat) Allergy/AdvReac Type Severity Reaction Status Date / Time No Known Allergies Allergy Verified 08/29/24 14:25 Family History Mother Heart disease Father Heart disease Diabetes Grandfather CVA (cerebral vascular accident) Brother Heart disease Surgical History History of lung biopsy History of hysterectomy Social History household members: none Smoking Status: Former smoker Tobacco: How many years used: 60 alcohol intake: never substance use type: does not use caffeine: Yes Type: carbonated beverages Number of servings: 2 ROS Constitutional Constitutional: Denies fever(s) or weight loss Eyes Eyes: Reports systems reviewed and no addt'l complaints, except as documented ENT HEENT: Reports systems reviewed and no addt'l complaints, except as documented Cardiovascular Cardiovascular: Denies chest pain at rest, chest pain with activity, dyspnea at rest, dyspnea on exertion, edema, palpitations or paroxysmal nocturnal dyspnea Respiratory/Chest Respiratory/Chest: Reports dyspnea on exertion, shortness of breath at rest and shortness of breath with exertion; Denies productive cough Gastrointestinal Gastrointestinal: Denies change in bowel habits, nausea, vomiting or weight changes Genitourinary Genitourinary: Denies difficulty urinating Musculoskeletal Musculoskeletal: Denies joint stiffness or muscle weakness Integumentary Integumentary: Denies lesions Neurologic Neurologic: Reports dizziness; Denies syncope Psychiatric Psychiatric: Denies anxiety Endocrine Endocrinology: Denies excessive sweating or fatigue Hematologic/Lymphatic Hematologic/Lymphatic: Denies anemia Allergic/Immunologic Allergic/Immunologic: Denies seasonal rhinorrhea Physical Exam Const alert, oriented x3 and no apparent distress General Appearance: cooperative HEENT hearing grossly normal bilaterally Head and Scalp: atraumatic Eyes EOMs intact bilaterally Neck General: normal visual inspection Chest inspection of chest normal and palpation of chest normal Resp normal respiratory effort Auscultation: clear to auscultation bilaterally Cardio regular rate, regular rhythm, S1 normal heart sound and S2 normal heart sound Jugular Venous Distention: JVD GI normal to inspection, nondistended, normoactive bowel sounds Extremity normal capillary refill and no pedal edema Peripheral Pulses: Yes pulses 2+ throughout and femoral pulses present Skin no rashes or lesions noted Neuro oriented x3 and CN's II-XII intact bilaterally Psych Appearance: grossly normal and appropriate Objective Data Vital Signs: Vital Signs Temp Pulse Resp BP Pulse Ox O2 Del Method 97.1 F L 47 L 14 122/92 H 100 Room Air 12/23/24 17:00 12/23/24 17:00 12/23/24 17:00 12/23/24 17:00 12/23/24 17:00 12/23/24 17:00 Oxygen Delivery Method Room Air Weight: 111 lb 12.39 oz Body Mass Index (BMI) 19.8 Lab / Micro Data 12/23/24 12:25 12/23/24 12:25 Labs: Laboratory Results - last 24 hr 12/23/24 12:25: WBC 7.5, RBC 4.10 L, Hgb 12.3, Hct 36.9 L, MCV 90.0, MCH 30.0, MCHC 33.3, RDW Std Deviation 42.3, RDW Coeff of [place] 12.8, Plt Count 264, MPV 9.3, Immature Gran % (Auto) 0.300, Neut % (Auto) 67.2, Lymph % (Auto) 19.4, [place] % (Auto) 12.1 H, Eos % (Auto) 0.7, Baso % (Auto) 0.3, Absolute Neuts (auto) 5.0, Absolute Lymphs (auto) 1.45, Nucleated RBC % 0, D-Dimer Quant (PE/DVT) 0.46, Sodium 134, Potassium 3.9, Chloride 99, Carbon Dioxide 24.8, Anion Gap 11, BUN 12, Creatinine 0.84, Estim Creat Clear Calc 37.95 L, Est GFR (MDRD) Non-Af 68, BUN/Creatinine Ratio 14.0, Glucose 97, Calcium 9.1, Troponin T High Sens 21 H, NT pro BNP II 2871 H 12/23/24 14:33: Troponin T Hi Sens 2 Hr 21 H Cardiology Labs/Tests 12/23/24 12:25: WBC 7.5, RBC 4.10 L, Hgb 12.3, Hct 36.9 L, MCV 90.0, MCH 30.0, MCHC 33.3, Plt Count 264, MPV 9.3, Immature Gran % (Auto) 0.300, Neut % (Auto) 67.2, Lymph % (Auto) 19.4, [place] % (Auto) 12.1 H, Eos % (Auto) 0.7, Baso % (Auto) 0.3, Absolute Neuts (auto) 5.0, Nucleated RBC % 0, D-Dimer Quant (PE/DVT) 0.46, Sodium 134, Potassium 3.9, Chloride 99, Carbon Dioxide 24.8, Anion Gap 11, BUN 12, Creatinine 0.84, Est GFR (MDRD) Non-Af 68, BUN/Creatinine Ratio 14.0, Glucose 97, Calcium 9.1 Rhythm: EKG: ECHO: Stress Test: Cardiac Cath: PCI: CT Surgery: Holter monitor: EPS: PPM: CXR: Chest CT Scan: Radiography Diagnostic Testing: Radiology Impression Chest X-Ray 12/23/24 13:08 IMPRESSION: Hyperinflation and COPD. Stable examination. Reading Location: [facility] RYAN Risk Score for UA/STEMI Assesmment (YES = 1) Risk Stratification Applicable: No
[2024-12-23 18:33] LABS: Troponin T High Sens 4 HR 23 ng/L (<=14)
--- NOTE | 2024-12-23 19:19 | EX.PACEMAKER ---
Pacemaker Procedure Note Pacemaker Procedure Note Temporary pacemaker placement. Powder Blender And Pourer: annetta The patient was brought to cardiac catheterization lab in the postabsorptive nonsedated state. Informed consent was obtained. 1% Xylocaine was used to anesthetize the right femoral area after developing appropriately prepped and draped. A 7 Malaysian sheath was placed without difficulty. A 5 Malaysian temporary pacemaker wire was then advanced under fluoroscopic control with a balloon tip up and after negotiation was placed in the right ventricle. Appropriate pacemaker capture was noted and the rate was set at 50 bpm, at 5 mV. Patient tolerated the procedure well. This sheath was sutured in place and the temporary pacemaker was bandaged appropriately. No complications were noted.
[2024-12-23] MEDS: 0.9% Saline Lock 10 ML Syringe IV (19:59)
[2024-12-24] VITALS (23 sets, daily range): BP systolic 94–148; BP diastolic 54–102; PULSE 50–97; RESP 14–24; TEMP 35.9–36.6; O2SAT 93–100; BMI 19.7
[2024-12-24 05:25] LABS: Hematocrit 38.4 % (37-47); Hemoglobin 13.4 g/dL (12.0-15.0); Immature Granulocytes Count 0.030 X10^3/uL (0.0-0.0); Mean Corp Hgb Conc 34.9 g/dL (32-36); Mean Corpuscular Volume 87.9 fL (81-99); Mean Platelet Vol. 9.2 fl (6.2-12.0); NRBC Flagged by Analyzer 0 % (0-5); Platelet Count 277 K/mm3 (150-450); RBC Distribution Width CV 12.9 % (11.6-14.6); RBC Distribution Width SD 41.2 fl (35.1-43.9); Red Blood Count 4.37 M/mm3 (4.2-5.4); White Blood Count 8.9 K/mm3 (4.4-11.0)
[2024-12-24 05:52] LABS: Anion Gap 14 (5-15); BUN 14 mg/dL (4-19); BUN/Creat Ratio 17.5 RATIO (10-20); Calcium,Total 9.1 mg/dL (7.6-11.0); Carbon Dioxide 22.8 mmol/L (21.0-32.0); Chloride 99 mmol/L (98-108); Estimated Creatinine Clearance 40.66 ml/min (50-250); Glucose 117 mg/dL (70-99); Magnesium 2.2 mg/dL (1.5-2.2); Potassium 4.1 mmol/L (3.3-5.1)
--- NOTE | 2024-12-24 06:55 | PN.HOSP_ITS ---
Reason for Visit Chief Complaint: Shortness of breath Subjective Subjective Patient states she is feeling okay. No issues overnight. Pacer is capturing. Plan is for permanent pacer later today. Objective Data Objective Data Vital Signs: Vital Signs Temp Pulse Resp BP Pulse Ox O2 Del Method O2 Flow Rate 97 F L 52 L 20 H 129/56 H 98 Nasal Cannula 2 12/24/24 05:00 12/24/24 06:00 12/24/24 06:00 12/24/24 06:00 12/24/24 06:00 12/24/24 06:00 12/24/24 06:00 Oxygen Flow Rate (L/min) 2 Oxygen Delivery Method Nasal Cannula Weight: 50.5 kg Body Mass Index (BMI) 19.7 Intake & Output: Intake and Output for Last 24 Hours 12/22/24 12/23/24 12/24/24 23:59 23:59 23:59 Output Total 950 / 1450 750 / 750 Balance -950 / -1450 -750 / -750 Lab / Micro Data 12/24/24 05:17 12/24/24 05:17 Labs: Laboratory Results - last 24 hr 12/23/24 12:25: WBC 7.5, RBC 4.10 L, Hgb 12.3, Hct 36.9 L, MCV 90.0, MCH 30.0, MCHC 33.3, RDW Std Deviation 42.3, RDW Coeff of [place] 12.8, Plt Count 264, MPV 9.3, Immature Gran % (Auto) 0.300, Neut % (Auto) 67.2, Lymph % (Auto) 19.4, [place] % (Auto) 12.1 H, Eos % (Auto) 0.7, Baso % (Auto) 0.3, Absolute Neuts (auto) 5.0, Absolute Lymphs (auto) 1.45, Nucleated RBC % 0, D-Dimer Quant (PE/DVT) 0.46, Sodium 134, Potassium 3.9, Chloride 99, Carbon Dioxide 24.8, Anion Gap 11, BUN 12, Creatinine 0.84, Estim Creat Clear Calc 37.95 L, Est GFR (MDRD) Non-Af 68, BUN/Creatinine Ratio 14.0, Glucose 97, Calcium 9.1, Troponin T High Sens 21 H, N T pro BNP II 2871 H 12/23/24 14:33: Troponin T Hi Sens 2 Hr 21 H 12/23/24 17:00: Troponin T Hi Sens 4Hr 23 H 12/24/24 05:17: WBC 8.9, RBC 4.37, Hgb 13.4, Hct 38.4, MCV 87.9, MCH 30.7, MCHC 34.9, RDW Std Deviation 41.2, RDW Coeff of [place] 12.9, Plt Count 277, MPV 9.2, Immature Gran % (Auto) 0.300, Neut % (Auto) 80.5 H, Lymph % (Auto) 10.0 L, [place] % (Auto) 9.1, Eos % (Auto) 0.0, Baso % (Auto) 0.1, Absolute Neuts (auto) 7.2, Absolute Lymphs (auto) 0.89, Nucleated RBC % 0, Sodium 135, Potassium 4.1, Chloride 99, Carbon Dioxide 22.8, Anion Gap 14, BUN 14, Creatinine 0.77, Estim Creat Clear Calc 40.66 L, Est GFR (MDRD) Non-Af 76, BUN/Creatinine Ratio 17.5, G [place]ose 117 H, Calcium 9.1, Magnesium 2.2, TSH 1.110 Radiography Diagnostic Testing: Radiology Impression Chest X-Ray 12/23/24 13:08 IMPRESSION: Hyperinflation and COPD. Stable examination. Reading Location: [facility] Physical Exam Const alert, oriented x3 and no apparent distress Constitutional Narrative: Frail-appearing, elderly, white female, lying in bed, transvenous pacer- temporary in place so patient lying flat, appears comfortable, nontoxic HEENT head/scalp atraumatic and moist oral mucous membranes HEENT Narrative: Dentures in place Head and Scalp: normocephalic Resp normal respiratory effort, no retractions, no use of accessory muscles and clear to auscultation bilaterally Auscultation: Negative for rales, rhonchi or wheezes Cardio regular rate, regular rhythm, S1 normal heart sound, S2 normal heart sound, no murmurs, no rub, no gallops and no clicks GI normal to inspection, nondistended, normoactive bowel sounds, soft to palpation and non-tender GI Narrative: Scaphoid abdomen Extremity no clubbing, cyanosis or edema Extremity Narrative: Decreased lean muscle mass, no cyanosis or clubbing Neuro oriented x3 and no focal motor deficits Speech: speech normal Psych affect normal Psych Narrative: Very pleasant, interacts appropriately Assessment & Plan Assessment/Plan (1) CHB (complete heart block): (2) Hyperlipidemia: (3) HTN (hypertension): (4) Elevated troponin: (5) Elevated brain natriuretic peptide (BNP) level: PLAN: Plan Symptomatic complete heart block - Transvenous pacer in place with plans for permanent pacer later today - Pacer is currently capturing well - Currently n.p.o. for procedure - Patient does have pacer pads on but is not required pacing at this time - Patient is not on any rate modulating medications - TSH is within normal limits Troponin elevation - Mild elevation - Highly suspect related to complete heart block - Echocardiogram shows normal EF at 65% with stage I diastolic dysfunction and pulmonary systolic pressures of 26 mmHg - No further workup at this time Elevated proBNP - Echocardiogram shows normal EF - Suspect related to heart block - 40 mg Lasix given yesterday and will give 1 more dose today - Will likely not need ongoing diuretics at discharge COPD - Not oxygen dependent at baseline - Continue home inhalers as able and restart if nonformulary at discharge - Continue incentive spirometer Essential hypertension/hyperlipidemia - Hold HCTZ as patient is getting Lasix - Continue home pravastatin Severe malnutrition - Patient with previously diagnosed malnutrition and appears to be frail with low BMI and decreased lean muscle mass - Add supplements DVT prophylaxis - SCDs with plans for procedure in the a.m. - If hospitalization extends beyond tomorrow will add subcu Lovenox 30 daily CODE STATUS - DNR CCA okay for short-term intubation Charges/Coding Visit Charges Inpatient E&M: 48846 Subs Hosp L2
--- NOTE | 2024-12-24 13:15 | CL.IE_ITS ---
Patient: MARYCHUY CROFT Study Date: 12/24/2024 Performing: Joe Valero MD : [id number] Age: 84 Gender: female PROCEDURES PERFORMED [id number])INITIAL PACER INSERT+DUAL LEADS INDICATIONS complete heart block PROCEDURE DETAILS The patient was brought to the Catheterization Lab in the postabsorptive nonsedated state. Informed consent was obtained prior to the procedure. Local anesthetic was given subcutaneously to the left subclavian region with Lidocaine 2%. A peel-away sheath was inserted into the left subclavian vein. PPM ventricular lead was inserted / positioned to right ventricular. PPM ventricular lead testing performed. PPM ventricular lead testing performed. A peel-away sheath was inserted. PPM atrial lead was inserted / positioned to the right atrial appendage. PPM atrial lead testing performed. The Atrial lead sutured in place with 2-0 Silk. The Ventricular PM lead sutured in place with 2-0 Silk. PPM generator was attached to the lead(s) and inserted into the pocket. Device pocket was irrigated with ancef antibiotic. The patient tolerated the procedure well. Estimated Blood Loss: < 10 mls IMPLANTED / EX-PLANTED DEVICES IMPLANTED DEVICE(S): PPM Ventricular lead - Laundry Tech: [employer], Model # 7481 Ingevity 52cm , Serial # [id number] PPM Atrial lead - Laundry Tech: [employer], Model # Ingevity 7840 45cm , Serial # [id number] PPM Generator - Laundry Tech: [employer], Model # L[address] MRI , Serial # [id number] DEVICE PARAMETERS ATRIAL LEAD PARAMETERS: P wave- 0.8 V at 0.4ms impedence- 663 (OHMS) VENTRICULAR LEAD PARAMETERS: 0.6V at 0.4ms impedence- 919 (OHMS) DEVICE PARAMETERS: Mode- DDD Lower rate- 60 Upper rate- 130 CONCLUSIONS / RECOMMENDATIONS Device Conclusions: Successful implantation of a dual chamber pacemaker Device Recommendations: Follow up with Primary Care Physician PROCEDURE MEDICATIONS Versed 0.5 mg IV Fentanyl 25 mcg IV Oxygen: 2 L/min via nasal cannula Ancef 2 Gm IV @ 12/24/2024 12:11:17 Signed By Joe Valero MD On 12/24/2024 13:14:22 Joe Valero MD
--- NOTE | 2024-12-24 14:47 | CASEMGMT ---
NANCY GALVIN Assessment Face to Face with patient for initial transition planning/care coordination assessment. NANCY GALVIN introduced self and role at [facility], pt voices understanding. Pt is A&Ox4 and is resting comfortably in bed and is calm. Pt's son at bedside. Pt recently returned to the ICU from pacer placement. Care providers, pharmacy, and demographics verified. Admitting dx: Symptomatic Complete Heart Block LACE Strata: 2 PCP: Cinda Moura Specialists: [place] Preferred Pharmacy: [facility] Insurance: [employer] [facility] Prescription Benefit: Yes LNOK: Kayla (Daughter), Sergio (Daughter), Doug (Son) Living Arrangements: Pt lives with her daughter, Kayla, in a single story home with a flat entrance ADLs/IADLs: Pt reports that she is indep at baseline. Per ICU rounds, PT eval to be held until tomorrow. Transportation: Self, children DME: Access to a BSC and FWW. Pt is currently requiring additional oxygen and may qualify for home oxygen use. A verbal list of local in-network DME companies were provided to the pt at this time. Pt prefers [employer]. HHC/SNF: denies hx or needs Pt?s goal: Home Plan: Home, follow for potential oxygen needs. Pt states that she feels safe returning home with her daughter once medically ready and denies the need for any HH or OP Tx. Pt denies further questions or concerns at this time. CM to follow for any additional needs. Wallace Russo RN, CM
[2024-12-24] MEDS: Ensure Plus High Protein 120 ML LIQUID PO (16:24)
[2024-12-24] MEDS: MELATONIN 10 MG TABLET PO (21:00)
[2024-12-24] MEDS: 0.9% Saline Lock 10 ML Syringe IV (21:01)
[2024-12-25 00:20] VITALS: BP 124/61; PULSE 103; RESP 14; TEMP 36.7; O2SAT 92
[2024-12-25 04:52] VITALS: BMI 19.8
[2024-12-25 05:53] LABS: Hematocrit 38.8 % (37-47); Hemoglobin 13.4 g/dL (12.0-15.0); Immature Granulocytes Count 0.030 X10^3/uL (0.0-0.0); Mean Corp Hgb Conc 34.5 g/dL (32-36); Mean Corpuscular Volume 89.0 fL (81-99); Mean Platelet Vol. 9.7 fl (6.2-12.0); NRBC Flagged by Analyzer 0 % (0-5); Platelet Count 254 K/mm3 (150-450); RBC Distribution Width CV 12.9 % (11.6-14.6); RBC Distribution Width SD 42.3 fl (35.1-43.9); Red Blood Count 4.36 M/mm3 (4.2-5.4); White Blood Count 9.0 K/mm3 (4.4-11.0)
[2024-12-25 06:10] VITALS: BP 119/55; PULSE 85; RESP 14; TEMP 36.9; O2SAT 96
[2024-12-25 06:11] LABS: Anion Gap 15 (5-15); BUN 22 mg/dL (4-19); BUN/Creat Ratio 24.6 RATIO (10-20); Calcium,Total 8.4 mg/dL (7.6-11.0); Carbon Dioxide 19.7 mmol/L (21.0-32.0); Chloride 99 mmol/L (98-108); Estimated Creatinine Clearance 36.97 ml/min (50-250); Glucose 109 mg/dL (70-99); Magnesium 2.2 mg/dL (1.5-2.2); Potassium 3.9 mmol/L (3.3-5.1)
--- NOTE | 2024-12-25 06:32 | RAD_ITS ---
PROCEDURE: CHEST 3 VIEW 12/25/2024 REASON FOR EXAM: POST PACEMAKER PLACEMENT. TECHNIQUE: Procedure Code: RADCXRPALATOB Modality: DX Procedure: AP inspiratory and expiratory upright and lateral CHEST, 3 VIEW COMPARISON: Chest x-ray of 12/23/2024. RAD/Chest 3 View IMPRESSION: Left thoracic transvenous pacemaker with atrial and ventricular leads in place. No pneumothorax or pleural effusion is seen. Postsurgical changes of the lateral left lung base again noted. Chronic lung changes and hyperinflation are again seen. Mild increased density at the left lung base may represent scarring and/or atel ectasis. No evidence of pulmonary edema. The cardiomediastinal silhouette is stable, without evidence of cardiomegaly. No interval osseous change is seen. Reading Location: [id number]
[2024-12-25 06:55] VITALS: O2SAT 89
[2024-12-25 07:02] VITALS: O2SAT 92
[2024-12-25 07:07] VITALS: PULSE 85; RESP 16; O2SAT 95
[2024-12-25] MEDS: Ensure Plus High Protein 120 ML LIQUID PO (08:54)
[2024-12-25 08:57] VITALS: BP 112/59; PULSE 86; RESP 16; TEMP 36.3; O2SAT 100
--- NOTE | 2024-12-25 08:58 | DCINST_ITS ---
Discharge Instructions DC O2, CPAP, BIPAP needs Home O2 Discharge instructions: No Dressing / Incision Discharge Activity: May Not Drive May shower in (days): 3 Additional Activity Instructions:: May shower or bathe on [day 3]. Do not scrub the incision or soak in the tub. Just wash with soap and let the water run over the incision. Gently pat dry with towel. Medications: Take your pain medication as directed. Refer to your discharge instruction sheet for a list of medications you are to take. Dressing / Incision Call your doctor if your incision/area has: Continuous Slow Oozing, Sudden Increased Bleeding, Increased Pain/ Swelling, Increased Redness, Foul Smelling Discharge and Swelling at the incision site Call your doctor if you observe: Fever of 101 or Higher, Shortness of breath, Dizziness, Fainting spells, Swelling in the ankles, Chest pain, Prolonged hiccupping and Increased palpitations (irregular heartbeat) Suture Line Care: Avoid Pulling/Pushing and Avoid Pinching/Bending Additional Dressing/Incision Instructions:: When dressing is removed, wash and dry incision. Keep covered with a light bandage if it is rubbing against your clothing. Do not cover the incision with an airtight bandage. Change the bandage daily. Do not remove steri strips. The strips will fall off on their own. Follow Up Care Please Follow Up With: Joe Valero MD When: Pacer follow-up on 01/01/25 @ 9 am Test Results: Test results from this visit will be discussed in further detail at your follow- up appointment, if applicable. Discharge Plan Admission Admit Date/Time: 12/23/24 15:23 Attending Provider: Cadence Arriaga Primary Care Provider: Cinda Moura Consulting Providers: Nano Oliva; Joe Valero Discharge Orders/Prescriptions Prescriptions: No Action cholecalciferol (vitamin D3) 2,000 unit capsule 2,000 unit PO DAILY coenzyme Q10 200 mg capsule 200 mg PO DAILY pravastatin 40 mg tablet 40 mg PO QHS PRN (Reason: clolesterol) Patient Comments: TAKE 1 TABLET BY MOUTH EVERY DAY AT BEDTIME hydrochlorothiazide 12.5 mg capsule 12.5 mg PO QDAY ipratropium-albuterol 0.5 mg-3 mg(2.5 mg base)/3 mL Solution For Nebulization 3 ml inhalation TID PRN (Reason: shortness of breath or wheezing) 30 Days Qty: 180 0RF albuterol sulfate 90 mcg/actuation HFA aerosol inhaler 2 puff inhalation Q4-6H PRN (Reason: shortness of breath or wheezing) Qty: 8.5 11RF Stiolto Respimat 2.5-2.5 mcg/actuation mist 2 inh inhalation DAILY Qty: 4 11RF Referrals / Follow Up: Cinda Moura NP-C [Primary Care Provider, Internal Medicine]
--- NOTE | 2024-12-25 10:50 | PCM.DC.SUM ---
Providers Date of Admission: 12/23/24 Date of Discharge: 12/25/24 Primary Care Physician: DOTTY De La Rosa Consultations 12/23/24 16:08 Consult: Cardiology Routine Consulting Provider: Joe Valero Reason for Consult: CHB EMERGENT Consult: No MD Notified: Yes Date Notified: 12/23/24 Time Notified: 16:00 Method of Notification: Verbal Reason For Visit: SYMPTOMATIC COMPLETE HEART BLOCK Diagnosis Discharge Diagnosis (1) CHB (complete heart block): Status: Acute Code(s): I44.2 - Atrioventricular block, complete (2) Hyperlipidemia: Status: Acute Code(s): E78.5 - Hyperlipidemia, unspecified (3) HTN (hypertension): Status: Chronic Code(s): I10 - Essential (primary) hypertension (4) Elevated troponin: Status: Acute Code(s): R79.89 - Other specified abnormal findings of blood chemistry (5) Elevated brain natriuretic peptide (BNP) level: Status: Acute Code(s): R79.89 - Other specified abnormal findings of blood chemistry Medications at Discharge Home Medications coenzyme Q10 200 mg capsule 200 mg PO DAILY supplement 07/31/18 cholecalciferol (vitamin D3) 50 mcg (2,000 unit) capsule 2,000 unit PO DAILY vitamin 08/01/18 ipratropium 0.5 mg-albuterol 3 mg (2.5 mg base)/3 mL nebulization soln 3 ml inhalation TID PRN shortness of breath or wheezing 30 days #180 mL 09/01/22 pravastatin 40 mg tablet 40 mg PO QHS PRN clolesterol 04/23/23 albuterol sulfate 90 mcg/actuation aerosol inhaler 2 puff inhalation Q4-6H PRN shortness of breath or wheezing #8.5 grams 10/03/23 hydrochlorothiazide 12.5 mg capsule 12.5 mg PO QDAY blood pressure 11/16/23 tiotropium 2.5 mcg-olodaterol 2.5 mcg/actuation mist for inhalation (Stiolto Respimat) 2 inh inhalation DAILY #4 grams 09/19/24 Hospital Course Operations - (Pacemaker placement) Procedures 2-D Echocardiogram, EKG and - (Temporary transvenous pacemaker placement/chest x-ray x 2) Summary of Care Provided Minutes Spent on Discharge: 25 Hospital Course: Mrs. Lucero is an 84-year-old white female who presented to the emergency department [facility] on 12/23/2024 with a chief complaint of shortness of breath. Patient reported that recently for the last 24 hours prior to presentation her breathing has felt more labored especially with exertion. She also complained of shortness of breath with lying down and has been gasping to breathe overnight prior to coming to the emergency department. Vital signs on arrival to the emergency department showed temperature of 97.5, heart rate 42, blood pressure 144/52, respiratory 1 pulse ox 100% on room air. CBC was overtly unremarkable. D-dimer was normal. BNP was overtly unremarkable. Initial troponin was 21 with a proBNP of 2800. Chest x-ray shows hyperinflation with no acute process. EKG noted complete heart block. The patient was stable from a vital standpoint and did not require pacing initially however pacer pads trans cutaneously were placed and cardiology was contacted who recommended ICU admission and a temporary transvenous pacer was placed that evening. She had good capture through the night and a permanent pacemaker was placed on 12/24/[address] Melvin Zazueta. Troponin was mildly elevated likely due to the above event. Echocardiogram was performed and showed an EF of 65% with stage I diastolic dysfunction and pulmonary systolic pressure 26 mmHg. She did receive 2 doses of Lasix while hospitalized and likely had some mild heart failure related to her complete heart block. Postprocedure she did well and had no issues through the night. She was able to be discharged home in stable condition with instructions per cardiology's recommendations on 12/25/2024. Follow-up with Dr. Valero was made for January 01 at 9 AM. She is to follow-up with her primary care physician within the next week. Patient was discharged home in stable condition on 12/25/2024. No medication changes were made. Discharge diagnoses: Symptomatic complete heart block Troponin elevation elevated proBNP COPD Essential hypertension Hyperlipidemia Severe malnutrition Physical Exam Const alert, oriented x3, no apparent distress, no limitations and well nourished Constitutional Narrative: Thin, frail-appearing, elderly, white female, sitting up in bed, daughter at bedside, appears comfortable, nontoxic General Appearance: cooperative, comfortable, well kempt and well developed Exam Limitations: no limitations Nutritional Appearance: thin HEENT normocephalic, head/scalp atraumatic and moist oral mucous membranes HEENT Narrative: Mild hearing loss, Mallampati 2, dentures in place Resp normal respiratory effort, no retractions, no use of accessory muscles and clear to auscultation bilaterally Auscultation: Negative for rales, rhonchi or wheezes Cardio regular rate, regular rhythm, S1 normal heart sound, S2 normal heart sound, no murmurs, no rub, no gallops and no clicks GI normal to inspection, nondistended, normoactive bowel sounds, soft to palpation and non-tender GI Narrative: Scaphoid abdomen Extremity no clubbing, cyanosis or edema Extremity Narrative: Decreased lean muscle mass, no cyanosis or clubbing, left upper extremity in sling Neuro oriented x3 and no focal motor deficits Speech: speech normal Psych affect normal Psych Narrative: Very pleasant, interacts appropriately Weight / BMI Weight Weight: 50.8 kg Body Mass Index (BMI) 19.8 ABG / Lab / Microbiology Data 12/25/24 04:41 12/25/24 04:41 Laboratory: Laboratory Results - last 24 hr 12/25/24 04:41: WBC 9.0, RBC 4.36, Hgb 13.4, Hct 38.8, MCV 89.0, MCH 30.7, MCHC 34.5, RDW Std Deviation 42.3, RDW Coeff of Wayne 12.9, Plt Count 254, MPV 9.7, Immature Gran % (Auto) 0.300, Neut % (Auto) 74.1 H, Lymph % (Auto) 13.6 L, [place] % (Auto) 10.2 H, Eos % (Auto) 1.4, Baso % (Auto) 0.4, Absolute Neuts (auto) 6.7, Absolute Lymphs (auto) 1.22, Nucleated RBC % 0, Sodium 133, Potassium 3.9, Chloride 99, Carbon Dioxide 19.7 L, Anion Gap 15, BUN 22 H, Creatinine 0.88, Estim Creat Clear Calc 36.97 L, Est GFR (MDRD) Non-Af 64, BUN/Creatinine Ratio 24.6 H, Glucose 109 H, Calcium 8.4, Phosphorus 3.0, Magnesium 2.2 Radiography Diagnostic Testing: Radiology Impression Chest X-Ray 12/25/24 06:32 IMPRESSION: Left thoracic transvenous pacemaker with atrial and ventricular leads in place. No pneumothorax or pleural effusion is seen. Postsurgical changes of the lateral left lung base again noted. Chronic lung changes and hyperinflation are again seen. Mild increased density at the left lung base may represent scarring and/or atelectasis. No evidence of pulmonary edema. The cardiomediastinal silhouette is stable, without evidence of cardiomegaly. No interval osseous change is seen. Reading Location: [address] D/C Instructions Discharge Activity: Return to Normal Activity and May Not Drive (For 7 days) May shower in (days): 3 Additional Activity Instructions: May shower or bathe on [day 3]. Do not scrub the incision or soak in the tub. Just wash with soap and let the water run over the incision. Gently pat dry with towel. Medications: Take your pain medication as directed. Refer to your discharge instruction sheet for a list of medications you are to take. Call your doctor if your incision/area has: Continuous Slow Oozing, Sudden Increased Bleeding, Increased Pain/ Swelling, Increased Redness, Foul Smelling Discharge and Swelling at the incision site Call your doctor if you observe: Fever of 101 or Higher, Shortness of breath, Dizziness, Fainting spells, Swelling in the ankles, Chest pain, Prolonged hiccupping and Increased palpitations (irregular heartbeat) Suture Line Care: Avoid Pulling/Pushing and Avoid Pinching/Bending Additional Dressing/Incision Instructions: When dressing is removed, wash and dry incision. Keep covered with a light bandage if it is rubbing against your clothing. Do not cover the incision with an airtight bandage. Change the bandage daily. Do not remove steri strips. The strips will fall off on their own. DC O2, CPAP, BIPAP Needs Home O2 Discharge instructions: No Please Follow Up With: Joe Valero MD When: Pacer follow-up on 01/01/25 @ 9 am Meaningful Use Info Meaningful Use Meaningful Use Diagnoses (Choose all that apply): None applicable Discharge Plan Admission Admit Date/Time: 12/23/24 15:23 Primary Reason for Your Visit: Shortness of breath Attending Provider: Cadence Arriaga Primary Care Provider: Cinda Moura Consulting Providers: Nano Oliva; Joe Valero Instructions Additional Instructions / Restrictions: 1. Okay to remove sling on 12/26/2024 Discharge Orders/Prescriptions Prescriptions: Continued cholecalciferol (vitamin D3) 2,000 unit capsule 2,000 unit PO DAILY coenzyme Q10 200 mg capsule 200 mg PO DAILY pravastatin 40 mg tablet 40 mg PO QHS PRN (Reason: clolesterol) Patient Comments: TAKE 1 TABLET BY MOUTH EVERY DAY AT BEDTIME hydrochlorothiazide 12.5 mg capsule 12.5 mg PO QDAY ipratropium-albuterol 0.5 mg-3 mg(2.5 mg base)/3 mL Solution For Nebulization 3 ml inhalation TID PRN (Reason: shortness of breath or wheezing) 30 Days Qty: 180 0RF albuterol sulfate 90 mcg/actuation HFA aerosol inhaler 2 puff inhalation Q4-6H PRN (Reason: shortness of breath or wheezing) Qty: 8.5 11RF Stiolto Respimat 2.5-2.5 mcg/actuation mist 2 inh inhalation DAILY Qty: 4 11RF Referrals / Follow Up: Joe Valero MD [Med Staff - Active Staff, Cardiology] - 01/01/25 9:00 am Cinda Moura NP-C [Primary Care Provider, Internal Medicine] - Within 2 Weeks Disposition Disposition (needs filled in before D/C Order can be placed): Home, Self Care Charges/Coding Visit Charges Inpatient E&M: 18437 Disch Hosp
--- NOTE | 2024-12-25 11:11 | PHA.DC.MR.R ---
Pharmacy [place] Med Reconciliation Pharmacy Service has performed discharge medication reconciliation for this patient. The patient's discharge medication list was reviewed for discrepancies and discrepancies were resolved. Medications at Discharge Home Medications coenzyme Q10 200 mg capsule 200 mg PO DAILY supplement 07/31/18 cholecalciferol (vitamin D3) 50 mcg (2,000 unit) capsule 2,000 unit PO DAILY vitamin 08/01/18 ipratropium 0.5 mg-albuterol 3 mg (2.5 mg base)/3 mL nebulization soln 3 ml inhalation TID PRN shortness of breath or wheezing 30 days #180 mL 09/01/22 pravastatin 40 mg tablet 40 mg PO QHS PRN clolesterol 04/23/23 albuterol sulfate 90 mcg/actuation aerosol inhaler 2 puff inhalation Q4-6H PRN shortness of breath or wheezing #8.5 grams 10/03/23 hydrochlorothiazide 12.5 mg capsule 12.5 mg PO QDAY blood pressure 11/16/23 tiotropium 2.5 mcg-olodaterol 2.5 mcg/actuation mist for inhalation (Stiolto Respimat) 2 inh inhalation DAILY #4 grams 09/19/24
--- NOTE | 2024-12-25 12:01 | CASEMGMT ---
Patient has order for discharge. NANCY GALVIN in to discuss needs at discharge, family at bedside. Patient states she has walker at home but not sure if it is a FWW. Family asking for script to fill if needed. Patient and family deny further needs or help at dishcarge. Patint and family had no further questions. NANCY GALVIN updated hospitalist, script received and provided to patient with [employer] information.
--- NOTE | 2024-12-25 16:00 | CHAPLAIN ---
Type of Pastoral Visit ___ Initial Visit ___ Follow-up Visit ___ On-call Visit ___ General Patient Visit ___ Spiritual Assessment ___ Family Conference ___ Bereavement ___ Rapid Response ___ Code Blue ___ Other (describe below) Pastoral Care Referral From ___ Patient ___ Family ___ Nurse ___ Physician ___ Mechanic Welder ___ Hydraulic Repairer ___ Other (describe below) Sacrament/Intervention ___ Active listening ___ Anointing ___ Anabaptism ___ Bereavement ___ Communion ___ [place] exploration ___ ___ Life review ___ Prayer ___ Reconciliation ___ Sacrament of Sick ___ Supportive presence ___ Wedding ___ Other (describe below) Pastoral Comments patient had been discharged before being seen by this license issuer
== END 2024-12-25 13:08 | disposition home or self-care (01) | DRG 242 ==
LOC: ED 12:40 → ICU 15:35 → PCU 12-24 18:41
PROVIDERS: Admitting Provider Internal Medicine; Emergency Provider Surgery; PCP Nurse Practitioner Family; Visit Provider Internal Medicine
DX: I44.2 Atrioventricular block, complete (principal); E43 Unspecified severe protein-calorie malnutrition; I50.30 Unspecified diastolic (congestive) heart failure; Z68.1 Body mass index [BMI] 19.9 or less, adult; Z66 Do not resuscitate; I11.0 Hypertensive heart disease with heart failure; J44.9 Chronic obstructive pulmonary disease, unspecified; E78.5 Hyperlipidemia, unspecified; K52.9 Noninfective gastroenteritis and colitis, unspecified; I45.10 Unspecified right bundle-branch block; R79.89 Other specified abnormal findings of blood chemistry; Z79.51 Long term (current) use of inhaled steroids; Z79.899 Other long term (current) drug therapy; Z87.891 Personal history of nicotine dependence
CPT/HCPCS: 33208; 33210; 36415; 71046; 71047; 80048; 83735; 83880; 84100; 84443; 84484; 85025; 85379; 93005; 93306; 94640; 94668; 94762; 97162; 97166; 99152; 99153; 99285; Q9957; A4216; C1894; J1938

== ENCOUNTER 2024-12-27 07:37 | Emergency (ER) | payer MEDICARE, MEDICAID, SELFPAY ==
[2024-12-27] VITALS (19 sets, daily range): BP systolic 69–161; BP diastolic 51–131; PULSE 57–94; RESP 12–24; TEMP 36.4–36.8; O2SAT 89–100; BMI 20.4
--- NOTE | 2024-12-27 08:11 | EKG12_ITS ---
Test Reason : REPEAT Blood Pressure : */* mmHG Vent. Rate : 80 BPM Atrial Rate : 80 BPM P-R Int : 176 ms QRS Dur : 146 ms QT Int : 438 ms P-R-T Axes : * -86 84 degrees QTcB Int : 505 ms AV dual-paced rhythm Abnormal ECG Confirmed by DARYL GIBBONS MD ([id number]), editorial writer ROBERT GODFREY ([id number]) on 12/29/2024 8:39:58 AM Referred By: Confirmed By: DARYL GIBBONS MD
--- NOTE | 2024-12-27 08:12 | ED.VIS.CHEST ---
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 Yifan Watson on Sunday, 3 days ago presents with chest pain that began yesterday evening at 6 PM. She states that she feels pounding in her chest under her left breast. She denies any fevers or chills, no nausea or vomiting, no exacerbating or alleviating factors. She states she is somewhat lightheaded and dizzy when she stands as well. She does have problems with chronic diarrhea according to her daughters. They do not know if she has irritable bowel, but she had 3 episodes of diarrhea last night. Nonbloody. [facility] Medical History Presence of cardiac pacemaker Acute hypotension Acute exacerbation of chronic obstructive pulmonary disease Respiratory failure Vertigo Pure hypercholesterolemia Tobacco abuse Depression Essential hypertension COPD (chronic obstructive pulmonary disease) Lung nodule Trigeminal neuralgia Bradycardia Home Medications ?Medication ?Instructions ?Recorded ?Last Taken ?Type coenzyme Q10 200 mg capsule 200 mg PO DAILY supplement 07/31/18 12/22/24 History cholecalciferol (vitamin D3) 50 2,000 unit PO DAILY vitamin 08/01/18 12/22/24 History mcg (2,000 unit) capsule pravastatin 40 mg tablet 40 mg PO QHS PRN clolesterol 04/23/23 12/22/24 History albuterol sulfate 90 mcg/actuation 2 puff inhalation Q4-6H PRN 10/03/23 12/26/24 Rx aerosol inhaler shortness of breath or wheezing #8.5 grams hydrochlorothiazide 12.5 mg capsule 12.5 mg PO QDAY blood pressure 11/16/23 12/22/24 History tiotropium 2.5 mcg-olodaterol 2.5 2 inh inhalation DAILY #4 grams 09/19/24 12/26/24 Rx mcg/actuation mist for inhalation (Stiolto Respimat) omega 7-mvb-tpk-fish oil 1,200 mg 1,200 cap PO DAILY 12/27/24 12/22/24 History (144 mg-216 mg) capsule (Fish Oil) Allergy/AdvReac Type Severity Reaction Status Date / Time No Known Allergies Allergy Verified 12/27/24 07:42 Family History Mother Heart disease Father Heart disease Diabetes Grandfather CVA (cerebral vascular accident) Brother Heart disease Surgical History History of lung biopsy History of hysterectomy Social History household members: none Smoking Status: Former smoker Tobacco: How many years used: 60 alcohol intake: never substance use type: does not use caffeine: Yes Type: carbonated beverages Number of servings: 2 ROS ROS ED ROS Narrative Review of systems positive for chest pain/pounding in chest on the left side under her breast. No nausea or vomiting. No fevers or chills. 3 episodes of diarrhea. No shortness of breath. No exacerbating or alleviating factors. EXAM Physical Exam Narrative Exam Narrative: Afebrile. Vital signs noted. Nontoxic-appearing. Cardiovascular examination reveals a regular rate and rhythm. Lungs are clear to auscultation bilaterally. The abdomen is soft and nontender with positive bowel sounds. Inspection of the chest wall on the left does show pacemaker in place without crepitance or fluctuance. Neurological examination is nonfocal, nonlateralizing. Const Vital Signs: 12/27/24 07:38 12/27/24 07:43 12/27/24 08:12 Temperature 97.5 F L Temperature Source Oral Pulse Rate 83 Respiratory Rate 18 Respiratory Effort Normal Blood Pressure 161/131 H Blood Pressure Mean 141 Pulse Ox 96 Oxygen Delivery Method Room Air Room Air 12/27/24 08:37 12/27/24 09:00 12/27/24 10:00 Temperature Temperature Source Pulse Rate 87 86 84 Respiratory Rate 16 16 16 Respiratory Effort Blood Pressure 77/61 L 88/61 L 89/72 L Blood Pressure Mean 66 70 77 Pulse Ox 98 97 96 Oxygen Delivery Method Room Air Room Air 12/27/24 10:24 Temperature Temperature Source Pulse Rate 84 Respiratory Rate 16 Respiratory Effort Blood Pressure 103/64 Blood Pressure Mean 77 Pulse Ox 96 Oxygen Delivery Method MDM MDM MDM Narrative Medical decision making narrative: Differential diagnosis includes but not limited to ACS versus pacemaker malfunction versus nonspecific chest pain versus pneumonia versus pneumothorax versus lead displacement. EKG was obtained and interpreted by myself independently as atrial sensed ventricular paced rhythm at [address] changes. No STEMI. Chest pain workup was pursued. Chest x-ray interpreted by myself independently shows no evidence of pneumothorax, no pneumonia, no pacemaker lead fracture. I reviewed the radiology report which confirms my independent interpretation. I reviewed her laboratory work and she has a normal white count of 7.4, hemoglobin 14.3 with hematocrit 41.7, platelet count 246. Sodium is normal at 136 with potassium 4.1, glucose appropriately elevated at 103 with a normal anion gap of 12. Magnesium slightly elevated at 2.4, just above normal. Initial high-sensitivity troponin is 28 with repeat at 2-hour being 28 as well. This is a flat troponin and additionally, she has had greater than 6 hours of pain as she states her symptoms began around 6 PM yesterday evening. In review of her prior laboratory work, she has had elevated troponin at 21. I do feel this is her baseline. I reviewed her prior cardiology note and her lower threshold is supposed to be set at 60. On pacemaker interrogation, her pacemaker lower rate limit is set at 80 ppm. I discussed patient with Dr. Geiger who recommends admission/observation to the PCU. I discussed patient with the hospitalist. In discussion with Dr. Jo, he will see her in the PCU. Disposition is assigned observation. Patient is in stable condition. History & Record Review Discussion w/independent historian: Patient and Family Additional record(s) reviewed:: Prior outpatient record (Cardiology report, hypotensive before, during, and after pacemaker placement) and Prior labs (Troponin 21) Lab Data Attestation: I reviewed the patient's lab results. Labs: Laboratory Results - last 24 hr 12/27/24 12/27/24 07:30 09:30 WBC 7.4 RBC 4.65 Hgb 14.3 Hct 41.7 MCV 89.7 MCH 30.8 MCHC 34.3 RDW Std Deviation 42.2 RDW Coeff of Wayne 13.0 Plt Count 246 MPV 9.3 Immature Gran % (Auto) 0.300 Neut % (Auto) 57.2 Lymph % (Auto) 30.1 Sampson % (Auto) 9.5 Eos % (Auto) 2.4 Baso % (Auto) 0.5 Absolute Neuts (auto) 4.2 Absolute Lymphs (auto) 2.22 Nucleated RBC % 0 Sodium 136 Potassium 4.1 Chloride 99 Carbon Dioxide 25.4 Anion Gap 12 BUN 13 Creatinine 0.82 Estim Creat Clear Calc 41.41 L Est GFR (MDRD) Non-Af 70 BUN/Creatinine Ratio 15.2 Glucose 103 H Calcium 9.7 Magnesium 2.4 H Troponin T High Sens 28 H D Troponin T Hi Sens 2 Hr 28 H Radiography Diagnostic Testing: Clinical Impression(s) from Imaging Studies Chest X-Ray 12/27/24 08:34 IMPRESSION: The overall cardiopulmonary findings are similar when compared to the prior exam. Reading Location: [id number] Discharge Plan Dx/Rx/DC Orders Clinical Impression: Chest pain, Pacemaker, Hypermagnesemia Disposition Disposition: Acute Care Hospital [facility]
[2024-12-27 08:20] LABS: Hematocrit 41.7 % (37-47); Hemoglobin 14.3 g/dL (12.0-15.0); Immature Granulocytes Count 0.020 X10^3/uL (0.0-0.0); Mean Corp Hgb Conc 34.3 g/dL (32-36); Mean Corpuscular Volume 89.7 fL (81-99); Mean Platelet Vol. 9.3 fl (6.2-12.0); NRBC Flagged by Analyzer 0 % (0-5); Platelet Count 246 K/mm3 (150-450); RBC Distribution Width CV 13.0 % (11.6-14.6); RBC Distribution Width SD 42.2 fl (35.1-43.9); Red Blood Count 4.65 M/mm3 (4.2-5.4); White Blood Count 7.4 K/mm3 (4.4-11.0)
[2024-12-27] MEDS: 0.9% Normal Saline (1000mL) 1,000 ML 999 ML IV (08:20)
--- NOTE | 2024-12-27 08:34 | RAD_ITS ---
PROCEDURE: CHEST 1 VIEW (PORTABLE) 12/27/2024 REASON FOR EXAM: CHEST PAIN TECHNIQUE: Frontal view of the chest. COMPARISON: Chest x-ray dated 12/25/2024 FINDINGS: Hardware: Cardiac pacemaker device is identified in the left pectoral region with 2 intact leads in satisfactory position. Cardiac leads overlie the chest. Surgical clips are seen in the left lung base laterally. Heart: Cardiac and mediastinal contours are stable. Arteriosclerotic vascular disease of the aorta is noted. Lungs: Postsurgical changes of the left lung base are noted. This may represent parenchymal scarring and/or atelectasis. Lungs are hyperinflated. There are no pneumonic infiltrates, pleural effusions, consolidative processes or pneumothoraces. Bones: Diffuse osteopenia of the bony thorax is noted. There is a dextroscoliosis of the thoracic spine. Other: The overall findings are similar when compared to the prior exam. RAD/Chest 1 View (Portable) IMPRESSION: The overall cardiopulmonary findings are similar when compared to the prior elier daniel Reading Location: [id number]
[2024-12-27 08:55] LABS: Anion Gap 12 (5-15); BUN 13 mg/dL (4-19); BUN/Creat Ratio 15.2 RATIO (10-20); Calcium,Total 9.7 mg/dL (7.6-11.0); Carbon Dioxide 25.4 mmol/L (21.0-32.0); Chloride 99 mmol/L (98-108); Estimated Creatinine Clearance 41.41 ml/min (50-250); Glucose 103 mg/dL (70-99); Magnesium 2.4 mg/dL (1.5-2.2); Potassium 4.1 mmol/L (3.3-5.1); Troponin T High Sensitivity 28 ng/L (<=14)
[2024-12-27 09:50] LABS: Troponin T High Sens 2 HR 28 ng/L (<=14)
--- NOTE | 2024-12-27 10:00 | EKG12_ITS ---
Test Reason : CP Blood Pressure : */* mmHG Vent. Rate : 83 BPM Atrial Rate : 83 BPM P-R Int : 172 ms QRS Dur : 150 ms QT Int : 436 ms P-R-T Axes : 88 -87 87 degrees QTcB Int : 512 ms Atrial-sensed ventricular-paced rhythm Abnormal ECG Confirmed by SHAI CARROLL, DARYL ([id number]), editorial clerk ROBERT GODFREY ([id number]) on 12/29/2024 8:39:46 AM Referred By: RENETTA Confirmed By: DARYL GIBBONS MD
[2024-12-27] MEDS: fentaNYL 100 MCG/2 ML Ampul 25 MCG IV ×2 (10:21→16:08)
--- NOTE | 2024-12-27 10:28 | ECHOL_ITS ---
Reason For Study Reason For Study: Chest Pain after Pacemaker Procedure This was a limited 2D transthoracic echocardiogram. Exam performed portable in ED. Left Ventricle Normal left ventricle. The estimated ejection fraction is 55-60 %. Right Ventricle Normal right ventricle. Pericardium/Pleural No pericardial effusion. MMode/2D Measurements & Calculations LVIDd: 4.0 cm IVSd: 0.85 cm LVIDs: 2.6 cm LVPWd: 0.90 cm FS: 35.1 % Doppler Measurements & Calculations TR max ronnie: 256.3 cm/sec TR max P.6 mmHg ECHO/Echo, Limited Study Interpretation Summary The estimated ejection fraction is 55-60 %. Paemaker lead noted on RV. Limited TTE. POst PPM No pericardial Effusion Ordering Physician: Richard Jo Referring Physician: Cinda Moura Performed By: Hoda Perez, LUANA, RVT
--- NOTE | 2024-12-27 10:34 | HP.PCM.HOS_ITS ---
HPI - General General Date of Admission: 12/27/24 Date of Service: 12/27/24 HPI Narrative MARYCHUY CROFT, is a 84 F who presents [facility] Medical History Presence of cardiac pacemaker Acute hypotension Acute exacerbation of chronic obstructive pulmonary disease Respiratory failure Vertigo Pure hypercholesterolemia Tobacco abuse Depression Essential hypertension COPD (chronic obstructive pulmonary disease) Lung nodule Trigeminal neuralgia Bradycardia Home Medications ?Medication ?Instructions ?Recorded ?Last Taken ?Type coenzyme Q10 200 mg capsule 200 mg PO DAILY supplement 07/31/18 12/22/24 History cholecalciferol (vitamin D3) 50 2,000 unit PO DAILY vi tamin 08/01/18 12/22/24 History mcg (2,000 unit) capsule pravastatin 40 mg tablet 40 mg PO QHS PRN clolesterol 04/23/23 12/22/24 History albuterol sulfate 90 mcg/actuation 2 puff inhalation Q 4-6H PRN 10/03/23 12/26/24 Rx aerosol inhaler shortness of breath or wheez ing #8.5 grams hydrochlorothiazide 12.5 mg capsule 12.5 mg PO QDAY bl ood pressure 11/16/23 12/22/24 History tiotropium 2.5 mcg-olodaterol 2.5 2 inh inhalation TERRI LY #4 grams 09/19/24 12/26/24 Rx mcg/actuation mist for inhalation (Stiolto Respimat) omega 8-iwc-eze-fish oil 1,200 mg 1,200 cap PO DAILY 0 12/27/24 12/22/24 History (144 mg-216 mg) capsule (Fish Oil) Allergy/AdvReac Type Severity Reaction Status Date / Time No Known Allergies Allergy Verified 12/27/24 07:42 Family History Mother Heart disease Father Heart disease Diabetes Grandfather CVA (cerebral vascular accident) Brother Heart disease Surgical History History of lung biopsy History of hysterectomy Social History household members: none Smoking Status: Former smoker Tobacco: How many years used: 60 alcohol intake: never substance use type: does not use caffeine: Yes Type: carbonated beverages Number of servings: 2 Vital Signs Vital Signs Vital Signs:
--- NOTE | 2024-12-27 10:34 | PCM.HP.STD ---
HPI - General General Date of Admission: 12/27/24 Date of Service: 12/27/24 HPI Narrative MARYCHUY CROFT, is a 84 F who presents [facility] Medical History Presence of cardiac pacemaker Acute hypotension Acute exacerbation of chronic obstructive pulmonary disease Respiratory failure Vertigo Pure hypercholesterolemia Tobacco abuse Depression Essential hypertension COPD (chronic obstructive pulmonary disease) Lung nodule Trigeminal neuralgia Bradycardia Home Medications ?Medication ?Instructions ?Recorded ?Last Taken ?Type coenzyme Q10 200 mg capsule 200 mg PO DAILY supplement 07/31/18 12/22/24 History cholecalciferol (vitamin D3) 50 2,000 unit PO DAILY vitamin 08/01/18 12/22/24 History mcg (2,000 unit) capsule pravastatin 40 mg tablet 40 mg PO QHS PRN clolesterol 04/23/23 12/22/24 History albuterol sulfate 90 mcg/actuation 2 puff inhalation Q4-6H PRN 10/03/23 12/26/24 Rx aerosol inhaler shortness of breath or wheezing #8.5 grams hydrochlorothiazide 12.5 mg capsule 12.5 mg PO QDAY blood pressure 11/16/23 12/22/24 History tiotropium 2.5 mcg-olodaterol 2.5 2 inh inhalation DAILY #4 grams 09/19/24 12/26/24 Rx mcg/actuation mist for inhalation (Stiolto Respimat) omega 5-ozd-bqt-fish oil 1,200 mg 1,200 cap PO DAILY 12/27/24 12/22/24 History (144 mg-216 mg) capsule (Fish Oil) Allergy/AdvReac Type Severity Reaction Status Date / Time No Known Allergies Allergy Verified 12/27/24 07:42 Family History Mother Heart disease Father Heart disease Diabetes Grandfather CVA (cerebral vascular accident) Brother Heart disease Surgical History History of lung biopsy History of hysterectomy Social History household members: none Smoking Status: Former smoker Tobacco: How many years used: 60 alcohol intake: never substance use type: does not use caffeine: Yes Type: carbonated beverages Number of servings: 2 Vital Signs Vital Signs Vital Signs: 12/27/24 07:38 12/27/24 07:43 12/27/24 08:12 Temperature 97.5 F L Temperature Source Oral Pulse Rate 83 Respiratory Rate 18 Respiratory Effort Normal Blood Pressure 161/131 H Blood Pressure Mean 141 Pulse Ox 96 Oxygen Delivery Method Room Air Room Air 12/27/24 08:37 12/27/24 09:00 12/27/24 10:00 Temperature Temperature Source Pulse Rate 87 86 84 Respiratory Rate 16 16 16 Respiratory Effort Blood Pressure 77/61 L 88/61 L 89/72 L Blood Pressure Mean 66 70 77 Pulse Ox 98 97 96 Oxygen Delivery Method Room Air Room Air 12/27/24 10:24 Temperature Temperature Source Pulse Rate 84 Respiratory Rate 16 Respiratory Effort Blood Pressure 103/64 Blood Pressure Mean 77 Pulse Ox 96 Oxygen Delivery Method Weight Weight: 115 lb 4.828 oz Body Mass Index (BMI) 20.4 Results Lab / Micro Data 12/27/24 07:30 12/27/24 07:30 Labs: Laboratory Results - last 24 hr 12/27/24 07:30: WBC 7.4, RBC 4.65, Hgb 14.3, Hct 41.7, MCV 89.7, MCH 30.8, MCHC 34.3, RDW Std Deviation 42.2, RDW Coeff of Wayne 13.0, Plt Count 246, MPV 9.3, Immature Gran % (Auto) 0.300, Neut % (Auto) 57.2, Lymph % (Auto) 30.1, Emmons % (Auto) 9.5, Eos % (Auto) 2.4, Baso % (Auto) 0.5, Absolute Neuts (auto) 4.2, Absolute Lymphs (auto) 2.22, Nucleated RBC % 0, Sodium 136, Potassium 4.1, Chloride 99, Carbon Dioxide 25.4, Anion Gap 12, BUN 13, Creatinine 0.82, Estim Creat Clear Calc 41.41 L, Est GFR (MDRD) Non-Af 70, BUN/Creatinine Ratio 15.2, Glucose 103 H, Calcium 9.7, Magnesium 2.4 H, Troponin T High Sens 28 H D 12/27/24 09:30: Troponin T Hi Sens 2 Hr 28 H Imaging Radiology Impression Chest X-Ray 12/27/24 08:34 IMPRESSION: The overall cardiopulmonary findings are similar when compared to the prior exam. Reading Location: [facility]
[2024-12-27 11:27] LABS: Magnesium 2.2 mg/dL (1.5-2.2)
[2024-12-27 11:51] LABS: Troponin T High Sens 4 HR 25 ng/L (<=14)
--- NOTE | 2024-12-27 11:54 | PN.HOSP_ITS ---
Hospitalist Note Patient came in with left inframammary chest pain multiple times, intermittently, does not feel rib pain since yesterday evening. Patient was als o feeling short of breath unclear may be nervousness but also palpitations/pounding sensation and dizziness. Initially plan was admission with a stat echo and pacemaker check. Patient had pacemaker on 12/24/24.*Limited echo was done. Dr. 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 He also called Regarding IR physician and patient is on the wait to transfer [facility] care hospital. It seems that patient's resolved heart rate is good at 60/min. Currently her heart rate is capturing well on the monitor Accu-Chek before meals and at bedtime with Humalog sliding scale coverage and hypoglycemia protocol. 70s to low 80s but blood. Blood pressure on the lower side 102/62. It was 77/61 in ED. Therefore, the admission is canceled
== END 2024-12-27 16:10 | disposition short-term general hospital (02) ==
LOC: ED 10:30 → PCU 11:48
PROVIDERS: Internal Medicine; Emergency Provider Emergency Medicine; PCP Nurse Practitioner Family; Visit Provider Emergency Medicine
DX: R07.9 Chest pain, unspecified (principal); J44.9 Chronic obstructive pulmonary disease, unspecified; E83.41 Hypermagnesemia; E78.00 Pure hypercholesterolemia, unspecified; R42 Dizziness and giddiness; K52.9 Noninfective gastroenteritis and colitis, unspecified; I10 Essential (primary) hypertension; Z95.0 Presence of cardiac pacemaker; Z87.891 Personal history of nicotine dependence; Z79.899 Other long term (current) drug therapy
CPT/HCPCS: 71045; 80048; 83735; 84484; 85025; 93005; 93288; 93308; 96361; 96374; 96375; 99285; A4216

== ENCOUNTER 2024-12-31 16:12 | Emergency (ER) | payer MEDICARE, MEDICAID, SELFPAY ==
[2024-12-31] VITALS (24 sets, daily range): BP systolic 73–166; BP diastolic 52–81; PULSE 79–107; RESP 16–32; TEMP 36.4–36.5; O2SAT 95–107; BMI 18.8
--- NOTE | 2024-12-31 16:51 | EKG12_ITS ---
Test Reason : HYPOTENSION Blood Pressure : */* mmHG Vent. Rate : 98 BPM Atrial Rate : 98 BPM P-R Int : 150 ms QRS Dur : 134 ms QT Int : 390 ms P-R-T Axes : 80 262 79 degrees QTcB Int : 497 ms Atrial-sensed ventricular-paced rhythm Abnormal ECG Confirmed by Bry Coronel ([id number]), restaurant expeditor ROBERT GODFREY ([id number]) on 01/02/2025 7:19:17 AM Referred By: Confirmed By: Bry Coronel
--- NOTE | 2024-12-31 17:00 | EDS_ITS ---
HPI History of Present Illness Chief Complaint: Hypotension Narrative Narrative: Chief complaint and HPI: 84-year-old female with past medical history of complete heart block with recent pacemaker, COPD, HTN, HLD presents for evaluation of hypotension. History taken by patient, family, medical record. Patient was recently admitted to our hospital for complete heart block. She originally required temporary transvenous pacer with then permanent pacemaker placed on 12/24/[address] Valero. Patient had an echocardiogram that showed an EF of 65% with stage I diastolic dysfunction. She received diuresis for mild heart failure. Patient states shortly after her pacemaker was placed she had an issue with a misplaced lead and therefore was seen at [facility] which she had a new pacemaker placed on 12/29/2024. Patient had a routine appointment with pulmonology in which she was found to be hypotensive. Pulmonology contacted Dr. Valero who recommended the patient be seen in the emergency department for further evaluation and pacemaker check. Patient admits to decreased p.o. intake secondary to decreased appetite. States she is chronically short of breath. Does endorse some intermittent lightheadedness with changes in position. She denies any fever, chills, chest pain, abdominal pain, nausea, vomiting, dysuria. Review of systems: See HPI Medications: As listed on the chart Allergies: As listed on the chart PFSH: Per chart Vital signs: As listed on the chart. Reviewed. Physical exam: Gen: A&O x3, NAD Head: Normocephalic, atraumatic Eyes: No sclera icterus, conjunctiva cler, PERRL, EOMI ENT: Tympanic membranes clear bilaterally, dry mucous membranes, posterior oropharynx unremarkable Neck: Trachea midline, No JVD, full range of motion CV: RRR, no murmurs, no peripheral edema Resp: Lungs CTA BL, no w/r/c GI: Abd soft, non-distended, non-tender, no r/r/g Musc: Full ROM, no deformity Skin: Warm, dry Neuro: Alert, oriented, grossly intact, sensation intact Psych: Cooperative, appropriate mood and affect [facility] Medical History (Updated 12/31/24 @ 16:15 by Laura Leonard STAPLE PROCESSING MACHINE OPERATOR, STAPLE PROCESSING MACHINE OPERATOR-C) Presence of cardiac pacemaker Acute hypotension Acute exacerbation of chronic obstructive pulmonary disease Respiratory failure Vertigo Pure hypercholesterolemia Tobacco abuse Depression Essential hypertension COPD (chronic obstructive pulmonary disease) Lung nodule Trigeminal neuralgia Bradycardia Home Medications ?Medication ?Instructions ?Recorded ?Last Taken ?Type coenzyme Q10 200 mg capsule 200 mg PO DAILY supplement 07/31/18 12/22/24 History cholecalciferol (vitamin D3) 50 2,000 unit PO DAILY vi tamin 08/01/18 12/22/24 History mcg (2,000 unit) capsule pravastatin 40 mg tablet 40 mg PO QHS PRN clolesterol 04/23/23 12/22/24 History albuterol sulfate 90 mcg/actuation 2 puff inhalation Q 4-6H PRN 10/03/23 12/26/24 Rx aerosol inhaler shortness of breath or wheez ing #8.5 grams hydrochlorothiazide 12.5 mg capsule 12.5 mg PO QDAY bl ood pressure 11/16/23 12/22/24 History tiotropium 2.5 mcg-olodaterol 2.5 2 inh inhalation TERRI LY #4 grams 09/19/24 12/26/24 Rx mcg/actuation mist for inhalation (Stiolto Respimat) omega [id number]-fish oil 1,200 mg 1,200 cap PO DAILY 0 12/27/24 12/22/24 History (144 mg-216 mg) capsule (Fish Oil) furosemide 20 mg tablet 20 mg PO QDAY 12/31/24 Unkno wn History ipratropium 0.5 mg-albuterol 3 mg 3 ml inhalation Q4H PRN PRN SOB 12/31/24 Unknown Rx (2.5 mg base)/3 mL nebulization &/OR WHEEZING #180 mL soln Allergy/AdvReac Type Severity Reaction Status Date / Time No Known Allergies Allergy Verified 12/31/24 16:22 Family History Mother Heart disease Father Heart disease Diabetes Grandfather CVA (cerebral vascular accident) Brother Heart disease Surgical History History of lung biopsy History of hysterectomy Social History household members: none Smoking Status: Former smoker Tobacco: How many years used: 60 alcohol intake: never substance use type: does not use caffeine: Yes Type: carbonated beverages Number of servings: 2 EXAM Physical Exam Const Vital Signs: 12/31/24 16:13 12/31/24 16:14 12/31/24 16:14 Temperature 97.6 F L 97.7 F L Temperature Source Oral Oral Pulse Rate 93 Pulse Rate [Lying] Pulse Rate [Sitting (for 1 minute prior to obtaining)] Pulse Rate [Standing (for 1 minute prior to obtaining)] Respiratory Rate 24 H Respiratory Effort Normal Respiratory Pattern Normal Blood Pressure 108/77 Blood Pressure [Lying] Blood Pressure [Sitting (for 1 minute prior to obtaining)] Blood Pressure [Standing (for 1 minute prior to obtaining)] Blood Pressure Mean 87 Blood Pressure Mean [Lying] Blood Pressure Mean [Sitting (for 1 minute prior to obtaining)] Blood Pressure Mean [Standing (for 1 minute prior to obtaining)] Pulse Ox 100 Oxygen Delivery Method Nasal Cannula Oxygen Flow Rate (L/min) 2 12/31/24 16:24 12/31/24 16:30 12/31/24 16:45 Temperature Temperature Source Pulse Rate 90 87 Pulse Rate [Lying] Pulse Rate [Sitting (for 1 minute prior to obtaining)] Pulse Rate [Standing (for 1 minute prior to obtaining)] Respiratory Rate 28 H 26 H Respiratory Effort Respiratory Pattern Blood Pressure 100/77 84/74 L Blood Pressure [Lying] Blood Pressure [Sitting (for 1 minute prior to obtaining)] Blood Pressure [Standing (for 1 minute prior to obtaining)] Blood Pressure Mean 86 77 Blood Pressure Mean [Lying] Blood Pressure Mean [Sitting (for 1 minute prior to obtaining)] Blood Pressure Mean [Standing (for 1 minute prior to obtaining)] Pulse Ox 97 98 98 Oxygen Delivery Method Oxygen Flow Rate (L/min) 12/31/24 17:00 12/31/24 17:15 12/31/24 17:30 Temperature Temperature Source Pulse Rate 91 79 95 Pulse Rate [Lying] Pulse Rate [Sitting (for 1 minute prior to obtaining)] Pulse Rate [Standing (for 1 minute prior to obtaining)] Respiratory Rate 25 H 23 H 22 H Respiratory Effort Respiratory Pattern Blood Pressure 103/71 106/66 100/80 Blood Pressure [Lying] Blood Pressure [Sitting (for 1 minute prior to obtaining)] Blood Pressure [Standing (for 1 minute prior to obtaining)] Blood Pressure Mean 82 75 89 Blood Pressure Mean [Lying] Blood Pressure Mean [Sitting (for 1 minute prior to obtaining)] Blood Pressure Mean [Standing (for 1 minute prior to obtaining)] Pulse Ox 100 97 95 Oxygen Delivery Method Oxygen Flow Rate (L/min) 12/31/24 17:45 12/31/24 18:00 12/31/24 18:10 Temperature Temperature Source Pulse Rate 99 94 Pulse Rate [Lying] Pulse Rate [Sitting (for 1 minute prior to obtaining)] Pulse Rate [Standing (for 1 minute prior to obtaining)] Respiratory Rate 27 H 29 H Respiratory Effort Respiratory Pattern Blood Pressure 102/71 106/62 Blood Pressure [Lying] Blood Pressure [Sitting (for 1 minute prior to obtaining)] Blood Pressure [Standing (for 1 minute prior to obtaining)] Blood Pressure Mean 79 72 Blood Pressure Mean [Lying] Blood Pressure Mean [Sitting (for 1 minute prior to obtaining)] Blood Pressure Mean [Standing (for 1 minute prior to obtaining)] Pulse Ox 98 97 Oxygen Delivery Method Oxygen Flow Rate (L/min) 12/31/24 18:15 12/31/24 18:17 12/31/24 18:17 Temperature Temperature Source Pulse Rate 92 92 Pulse Rate [Lying] 90 Pulse Rate [Sitting (for 1 minute prior to obtaining)] 92 Pulse Rate [Standing (for 1 minute prior to obtaining)] 105 H Respiratory Rate 24 H 23 H Respiratory Effort Respiratory Pattern Blood Pressure 106/67 84/73 L Blood Pressure [Lying] 84/73 L Blood Pressure [Sitting (for 1 minute prior to obtaining)] 92/72 Blood Pressure [Standing (for 1 minute prior to obtaining)] 77/55 L Blood Pressure Mean 78 78 Blood Pressure Mean [Lying] 76 Blood Pressure Mean [Sitting (for 1 minute prior to obtaining)] 78 Blood Pressure Mean [Standing (for 1 minute prior to obtaining)] 62 Pulse Ox 98 100 Oxygen Delivery Method Oxygen Flow Rate (L/min) 12/31/24 18:19 12/31/24 18:22 12/31/24 19:00 Temperature Temperature Source Pulse Rate 91 102 H 92 Pulse Rate [Lying] Pulse Rate [Sitting (for 1 minute prior to obtaining)] Pulse Rate [Standing (for 1 minute prior to obtaining)] Respiratory Rate 24 H 32 H 18 Respiratory Effort Respiratory Pattern Blood Pressure 92/72 77/55 L 94/81 H Blood Pressure [Lying] Blood Pressure [Sitting (for 1 minute prior to obtaining)] Blood Pressure [Standing (for 1 minute prior to obtaining)] Blood Pressure Mean 80 64 85 Blood Pressure Mean [Lying] Blood Pressure Mean [Sitting (for 1 minute prior to obtaining)] Blood Pressure Mean [Standing (for 1 minute prior to obtaining)] Pulse Ox 96 99 100 Oxygen Delivery Method Room Air Oxygen Flow Rate (L/min) 12/31/24 19:50 12/31/24 20:00 12/31/24 20:11 Temperature Temperature Source Pulse Rate 102 H 97 101 H Pulse Rate [Lying] Pulse Rate [Sitting (for 1 minute prior to obtaining)] Pulse Rate [Standing (for 1 minute prior to obtaining)] Respiratory Rate 16 21 H 29 H Respiratory Effort Respiratory Pattern Blood Pressure 76/58 L 73/52 L 89/66 L Blood Pressure [Lying] Blood Pressure [Sitting (for 1 minute prior to obtaining)] Blood Pressure [Standing (for 1 minute prior to obtaining)] Blood Pressure Mean 66 60 75 Blood Pressure Mean [Lying] Blood Pressure Mean [Sitting (for 1 minute prior to obtaining)] Blood Pressure Mean [Standing (for 1 minute prior to obtaining)] Pulse Ox 100 99 96 Oxygen Delivery Method Oxygen Flow Rate (L/min) 12/31/24 20:13 12/31/24 20:15 12/31/24 21:00 Temperature Temperature Source Pulse Rate 100 102 H 90 Pulse Rate [Lying] Pulse Rate [Sitting (for 1 minute prior to obtaining)] Pulse Rate [Standing (for 1 minute prior to obtaining)] Respiratory Rate 24 H 24 H 16 Respiratory Effort Respiratory Pattern Blood Pressure 136/80 H 141/80 H 144/80 H Blood Pressure [Lying] Blood Pressure [Sitting (for 1 minute prior to obtaining)] Blood Pressure [Standing (for 1 minute prior to obtaining)] Blood Pressure Mean 95 98 101 Blood Pressure Mean [Lying] Blood Pressure Mean [Sitting (for 1 minute prior to obtaining)] Blood Pressure Mean [Standing (for 1 minute prior to obtaining)] Pulse Ox 98 97 98 Oxygen Delivery Method Nasal Cannula Nasal Cannula Room Air Oxygen Flow Rate (L/min) 2 2 MDM MDM MDM Narrative Medical decision making narrative: 84-year-old female with past medical history of complete heart block with recent pacemaker, COPD, HTN, HLD presents for evaluation of hypotension. History taken by patient, family, medical record. Patient was recently admitted to our hospital for complete heart block. She originally required temporary transvenous pacer with then permanent pacemaker placed on 12/24/[address] Valero. Patient had an echocardiogram that showed an EF of 65% with stage I diastolic dysfunction. She received diuresis for mild heart failure. Patient states shortly after her pacemaker was placed she had an issue with a misplaced lead and therefore was seen at [facility] which she had a new pacemaker placed on 12/29/2024. Patient had a routine appointment with pulmonology in which she was found to be hypotensive. Pulmonology contacted Dr. Valero who recommended the patient be seen in the emergency department for further evaluation and pacemaker check. Patient admits to decreased p.o. intake s econdary to decreased appetite. States she is chronically short of breath. Does endorse some intermittent lightheadedness with changes in position. Family states her SBP was in the 60s in the pulmonology office. On presentation here to the emergency department her blood pressure was 108/77. She does have dry mucous membranes. On 2 L nasal cannula which family reports she has been on for several days. Cardiology currently interrogating pacemaker. Differential diagnosis includes but is not limited to orthostatic hypotension, dehydration, electrolyte abnormality, arrhythmia, UTI, PE. NS bolus ordered. Laboratory workup ordered. Patient's pacemaker was interrogated. 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 No arrhythmias. Concerned that the ventricular lead has dislodged again. This is the same lead that was recently replaced. States that the lead was replaced by EP physician at [facility] Dr. Van. Recommends her to be transferred. I did inform Dr. Valero that my workup was not complete however he states the patient needs to be transferred and recommends me initiating this now. This will be performed. [facility] was contacted. On reevaluation, patient is very anxious in the room. Tearful. States she wants to leave AGAINST MEDICAL ADVICE. After having an extensive discussion with her and family. She is willing to try some low-dose Ativan with rediscussion. CBC without leukocytosis. Patient has anemia with hemoglobin of 10.8. This is new from 12/27 when her hemoglobin was 14.3. She denies any bloody bowel movements. Platelets unremarkable. D-dimer elevated at 2.2. Cannot rule out PE without CT chest. BNP relatively unremarkable without CHARLA. Troponin 51. This is up from 12/27 at 28. Patient not having any chest pain. This may be elevated due to multiple pacemaker placements. BNP 421. [facility] contacted me and patient was discussed with middle school football coach Dr. Brito. He recommends finishing the workup as well as CTA chest and then recontacted the transfer line. Suspects patient will be ED to ED. On reevaluation, patient is again hypotensive. Receiving fluids. Repeat troponin is 51. CTA negative for PE. Patient has lung COPD. Large left pleural effusion with compressive atelectasis. On reevaluation, patient's blood pressure has improved. Patient will warrant transfer to [facility] for concern for pacemaker lead displacement. [facility] was contacted and I spoke to the ED physician Dr. Padilla. Patient accepted ED to ED. UA positive for nitrites and leuk esterase as well as 3+ bacteria. Urine culture sent. Rocephin ordered for UTI. Patient will be monitored her emergency department until transferred via local ambulance squad. EKG: Interpreted by me/EM physician: EKG shows atrial sensed ventricular paced rhythm. Heart rate 98. Wide-complex. Diagnostic: Interpreted by me/EM physician: Chest x-ray shows mild vascular congestion with bilateral small pleural effusions. No pneumothorax. radiology in agreement. 45 minutes of critical care time utilized in managing the patient. This is due to high probability of and deterioration of the patient based on the p atient's condition and excludes any separately billable procedures. Impression: 1. Hypotension, resolved 2. Concern for ventricular pacemaker lead displacement 3. UTI 4. Anemia Lab Data Labs: Laboratory Results - last 24 hr 12/31/24 12/31/24 12/31/24 16:20 19:02 20:06 WBC 9.0 RBC 3.51 L Hgb 10.8 L Hct 32.0 L MCV 91.2 MCH 30.8 MCHC 33.8 RDW Std Deviation 43.4 RDW Coeff of Wayne 13.2 Plt Count 268 MPV 9.3 Immature Gran % (Auto) 0.400 Neut % (Auto) 70.8 H Lymph % (Auto) 16.4 L Ceiba % (Auto) 10.0 Eos % (Auto) 1.8 Baso % (Auto) 0.6 Absolute Neuts (auto) 6.4 Absolute Lymphs (auto) 1.48 Nucleated RBC % 0 D-Dimer Quant (PE/DVT) 2.20 H* Sodium 137 Potassium 3.8 Chloride 99 Carbon Dioxide 25.2 Anion Gap 12 BUN 13 Creatinine 0.58 L Estim Creat Clear Calc 39.20 L Est GFR (MDRD) Non-Af 89 BUN/Creatinine Ratio 21.5 H Glucose 97 Calcium 9.1 Troponin T High Sens 51 H D Troponin T Hi Sens 2 Hr 51 H NT pro BNP II 421 Urine Color Straw Urine Clarity Clear Urine pH 7.0 Ur Specific Gilbert 1.005 Urine Protein 15 H Urine Glucose (UA) Normal Urine Ketones 5 H Urine Occult Blood 10 H Urine Nitrite Positive H Urine Bilirubin Negative Urine Urobilinogen Normal Ur Leukocyte Esterase 100 H Urine RBC 0-5 SEEN Urine WBC 0-5 SEEN Ur Squamous Epith Cells 0-5 SEEN Urine Bacteria 3+ Urine Mucus 0 SEEN Radiography Diagnostic Testing: Clinical Impression(s) from Imaging Studies Chest X-Ray 12/31/24 18:06 IMPRESSION: Mild cardiomegaly with vascular congestion and small bibasilar pleural effusions/atelectasis. Reading Location: [facility] Chest CTA 12/31/24 19:31 IMPRESSION: 1. No pulmonary embolism. 2. Lung emphysema/COPD. Large left pleural effusion with compressive atelectasis. Reading Location: [id number] Discharge Plan Triage Chief Complaint: Hypotension ED Provider: Steven Arriola Dx/Rx/DC Orders Prescriptions: No Action cholecalciferol (vitamin D3) 2,000 unit capsule 2,000 unit PO DAILY coenzyme Q10 200 mg capsule 200 mg PO DAILY pravastatin 40 mg tablet 40 mg PO QHS PRN (Reason: clolesterol) Patient Comments: TAKE 1 TABLET BY MOUTH EVERY DAY AT BEDTIME hydrochlorothiazide 12.5 mg capsule 12.5 mg PO QDAY furosemide 20 mg tablet 20 mg PO QDAY ipratropium-albuterol 0.5 mg-3 mg(2.5 mg base)/3 mL solution for nebulization 3 ml inhalation Q4H PRN PRN (Reason: SOB &/OR WHEEZING) Qty: 180 6RF omega 8-eri-sek-fish oil [Fish Oil] 1,200 (144-216) mg capsule 1,200 cap PO DAILY albuterol sulfate 90 mcg/actuation HFA aerosol inhaler 2 puff inhalation Q4-6H PRN (Reason: shortness of breath or wheezing) Qty: 8.5 11RF Stiolto Respimat 2.5-2.5 mcg/actuation mist 2 inh inhalation DAILY Qty: 4 11RF Primary Care Provider: Cinda Moura Referrals: Cinda Moura, STAPLE PROCESSING MACHINE OPERATOR-C [Primary Care Provider, Internal Medicine] Print Language: Italian
[2024-12-31] MEDS: 0.9% Normal Saline (1000mL) 1,000 ML 1000 ML IV ×2 (17:05→18:55)
[2024-12-31 17:25] LABS: Anion Gap 12 (5-15); BUN 13 mg/dL (4-19); BUN/Creat Ratio 21.5 RATIO (10-20); Calcium,Total 9.1 mg/dL (7.6-11.0); Carbon Dioxide 25.2 mmol/L (21.0-32.0); Chloride 99 mmol/L (98-108); Estimated Creatinine Clearance 39.20 ml/min (50-250); Glucose 97 mg/dL (70-99); Potassium 3.8 mmol/L (3.3-5.1); Pro- Brain NATRIURETIC PEPTIDE 421 pg/mL (<=1800)
[2024-12-31 17:43] LABS: Troponin T High Sensitivity 51 ng/L (<=14)
[2024-12-31 17:46] LABS: Hematocrit 32.0 % (37-47); Hemoglobin 10.8 g/dL (12.0-15.0); Immature Granulocytes Count 0.040 X10^3/uL (0.0-0.0); Mean Corp Hgb Conc 33.8 g/dL (32-36); Mean Corpuscular Volume 91.2 fL (81-99); Mean Platelet Vol. 9.3 fl (6.2-12.0); NRBC Flagged by Analyzer 0 % (0-5); Platelet Count 268 K/mm3 (150-450); RBC Distribution Width CV 13.2 % (11.6-14.6); RBC Distribution Width SD 43.4 fl (35.1-43.9); Red Blood Count 3.51 M/mm3 (4.2-5.4); White Blood Count 9.0 K/mm3 (4.4-11.0)
--- NOTE | 2024-12-31 18:06 | RAD_ITS ---
PROCEDURE: CHEST PA AND LATERAL 12/31/2024 REASON FOR EXAM: HYPOTENSION TECHNIQUE: Procedure Code: RADCXR Modality: DX Procedure: CHEST PA AND LATERAL COMPARISON: 12/27/2024 FINDINGS: Devices: Left chest wall dual lead ICD in stable position. Lungs/Pleura: Small bibasilar pleural effusions likely with adjacent atelectasis, greater on the left. Left basilar chain suture material. No pneumothorax. Heart/Mediastinum: Mildly enlarged. Central vascular congestion. Bones/Soft tissues: Mild degenerative changes of the spine. RAD/Chest PA and Lateral IMPRESSION: Mild cardiomegaly with vascular congestion and small bibasilar pleural effusion s/atelectasis. Reading Location: [id number]
[2024-12-31 18:11] LABS: D-Dimer Quantitative (DVT/PE) 2.20 FEU/ug/m (0.27-0.49)
--- NOTE | 2024-12-31 19:31 | CT_ITS ---
EXAM: CT Angiography Chest Without and With Intravenous Contrast CLINICAL INDICATION: PE TECHNIQUE: Axial computed tomographic angiography images of the chest without and with intravenous contrast. This CT exam was performed using one or more of the following dose reduction techniques: automated exposure control, adjustment of the mA and/or kV according to patient size, and/or use of iterative reconstruction technique. MIP reconstructed images were created and reviewed. COMPARISON: No relevant prior studies available. FINDINGS: PULMONARY ARTERIES: Unremarkable. No pulmonary embolism. AORTA: Scattered calcified atherosclerotic disease of aorta. No thoracic aortic aneurysm. LUNGS AND PLEURAL SPACES: Lung emphysema/COPD. Large left pleural effusion with compressive atelectasis. No mass. No pneumothorax. HEART: Unremarkable. No cardiomegaly. No significant pericardial effusion. No evidence of RV dysfunction. BONES/JOINTS: No acute fracture. No dislocation. SOFT TISSUES: Unremarkable. LYMPH NODES: Unremarkable. No enlarged lymph nodes. CT/CTA Chest W/WO Contrast IMPRESSION: 1. No pulmonary embolism. 2. Lung emphysema/COPD. Large left pleural effusion with compressive atelecta sis. Reading Location: [id number]
[2024-12-31 20:00] LABS: Troponin T High Sens 2 HR 51 ng/L (<=14)
[2024-12-31 20:18] LABS: Mucous, Urine 0 SEEN /hpf (<or=2+)
[2024-12-31 21:25] LABS: Color, Urine Straw (Yellow); Glucose, Dipstick Normal (Normal); Ketone-Dipstick 5 mg/dl (Negative); Leukocyte Esterase-Dipstick 100 /ul (Negative); Nitrite-Dipstick Positive (Negative); Occult Blood-Urine 10 /ul (Negative); Protein-Dipstick 15 mg/dl (Negative); Specific Gravity, Urine 1.005 (1.002-1.030); Urine Bilirubin Dipstick Negative (Negative)
[2024-12-31 22:41] LABS: Red Blood Cells-Urine 0-5 SEEN /hpf (0-5); Squamous Epithelial Cells - UA 0-5 SEEN /hpf (5-10)
--- NOTE | 2025-01-01 00:46 | ED.RN ---
THIS NURSE ATTEMPTED TO CALL PT REPORT TWICE TO [facility]. THIS NURSE GOT THROUGH ON THE SECOND CALL. A MEDIC ANSWERED THE PHONE ADVISING MY THE CHARGE NURSE WAS IN WITH A CODING PT. THIS NURSE GAVE MY NAME AND NUMBER INFO TO REACH ME IF THEY WANT A PT REPORT.
[2025-01-01 00:48] VITALS: BP 143/76; PULSE 104; RESP 16; TEMP 36.6; O2SAT 99
== END 2025-01-01 00:50 | disposition short-term general hospital (02) ==
LOC: ED 16:43
PROVIDERS: Emergency Provider Surgery; PCP Nurse Practitioner Family; Visit Provider Surgery
DX: N39.0 Urinary tract infection, site not specified (principal); I11.0 Hypertensive heart disease with heart failure; I50.9 Heart failure, unspecified; J44.9 Chronic obstructive pulmonary disease, unspecified; E78.00 Pure hypercholesterolemia, unspecified; Z87.891 Personal history of nicotine dependence; D64.9 Anemia, unspecified; J90 Pleural effusion, not elsewhere classified; J98.11 Atelectasis; Z95.0 Presence of cardiac pacemaker; I95.9 Hypotension, unspecified; Z79.899 Other long term (current) drug therapy; B96.1 Klebsiella pneumoniae [K. pneumoniae] as the cause of diseases classified elsewhere
CPT/HCPCS: 71046; 71275; 80048; 81001; 83880; 84484; 85025; 85379; 87077; 87086; 87088; 87186; 93005; 96361; 96365; 96375; 99285; Q9967; A4216

== ENCOUNTER → 2025-01-16 | Outpatient (CLI) | payer MEDICARE, MEDICAID, SELFPAY ==
[2025-01-16 15:18] LABS: Potassium 4.2 mmol/L (3.3-5.1)
== END | disposition home or self-care (01) ==
LOC: MTLAB 13:44
PROVIDERS: PCP Nurse Practitioner Family; Referring Provider Internal Medicine; Visit Provider Internal Medicine
DX: E87.5 Hyperkalemia (principal)
CPT/HCPCS: 36415; 84132

== ENCOUNTER → 2025-03-16 | Outpatient (CLI) | payer MEDICARE, MEDICAID, SELFPAY ==
--- NOTE | 2025-03-16 16:25 | RAD_ITS ---
PROCEDURE: THORACIC SPINE 2 VIEWS 03/16/2025 REASON FOR EXAM: BACK PAIN TECHNIQUE: Procedure Code: [id number] Modality: DX Procedure: THORACIC SPINE 2 VIEWS COMPARISON: CT chest 12/31/2024. FINDINGS: Left chest wall dual lead ICD appears appropriately positioned. No evidence for acute fracture or subluxation. Visualized vertebral body heights are grossly preserved. Moderate lower thoracolumbar S-shaped scoliotic curvature. Mild multilevel spondylotic changes with varying degrees of disc space narrowing, endplate sclerosis and small anterior osteophytes, and hypertrophic facet arthropathy. Clear lungs and pleura. Chain suture material in the lateral left lung base. Normal-sized cardiac silhouette. Coarse aortic arch calcification. RAD/Thoracic Spine 2 Views IMPRESSION: No evidence of acute fracture or subluxation. Degenerative changes as describe d. Reading Location: [id number]
--- NOTE | 2025-03-16 16:25 | RAD_ITS ---
PROCEDURE: RIBS UNIL 2V NO CXR 03/16/2025 REASON FOR EXAM: XR RIB UNILATERAL; LEFT SIDE TECHNIQUE: Procedure Code: [id number] Modality: DX Procedure: RIBS UNIL 2V NO CXR COMPARISON: Chest x-ray 12/31/2024 FINDINGS: There is a nondisplaced fracture at the anterior tip of the left 11th rib. No additional acute fracture or dislocation visualized. Multilevel degenerative changes of the visualized spine with moderate lower thoracolumbar S-shaped scoliosis. No focal airspace consolidation, pneumothorax or sizable pleural effusion is seen. Left chest wall dual lead ICD. Lateral left lung base chain suture material. RAD/Ribs Unil 2V No CXR IMPRESSION: Acute nondisplaced fracture at the anterior tip of the left 11th rib. Reading Location: [id number]
== END | disposition home or self-care (01) ==
LOC: MTRAD 16:23
PROVIDERS: PCP Internal Medicine; Referring Provider Internal Medicine; Visit Provider Internal Medicine
DX: M54.9 Dorsalgia, unspecified (principal)
CPT/HCPCS: 71100; 72070